=== PATIENT | female | born 1940 | race Caucasian/White ===

== ENCOUNTER → 2016-06-17 | Outpatient (REF) | payer MEDICARE, BC ==
[~2016-06-17] MED LIST: *CXR; /GLIM2TA; /GLIM4TA; ALLO100T PO; AMARYL4 PO; ASPI325T PO; ASPI81TA45 OR; ATENOLOL50 PO; AVAP150T; AVAP150T PO; AVAPRO150 PO; BISA10SU2 RE; BISA5TA OR; CALC1CAP31 PO; CARAFATE1 PO; CIPR500T19; COLA100C2 OR; COLC0.6T; COLC0.6T OR; COLC1CAP PO; CORD200T PO; COUM1TAB17 PO; CRAN400C PO; ELIQ2.5T PO; ENOX40SY SC; EX-L5TAB OR; FISH120012 PO; FISHCAP PO; FLAG500T; GLIM1TAB PO; GLIM2TA PO; GLIM4TAB PO; GLUCOPH500 PO; GLUCULTRA TOPICAL; HCTZ25 PO; HYDR12.55 PO; HYDR200T3 PO; HYDR25TA6; HYDR25TA6 PO; HYDROXYCHLOROQUINE; IMITREX50 PO; IRBE150T12 PO; JANU100T PO; JANUVIA; JANUVIA PO; JANUVIA100 PO; KEFLEX500 PO; LASIX20 PO; LEVAQUI500 PO; LEVO175T3; LEVO200T4 PO; LEVOTH PO; LOPR50TA OR; MAGN250T11 PO; MILK200C PO; MILKPOW; MILKPOW PO; MILKSUS OR; MULTCAP PO; MULTIVIT OR; MULTIVIT PO; OMEGA 3; OXYC10TA12 OR; OXYC5CAP4 OR; PENNSAID; POTASSIU10 PO; PRAV20TA2 OR; PROT1TAB2 PO; SENN8.6T14 OR; SEREVENTIN PO; SINGULAI10 PO; SOY LECITHIN PO; SOYA LECITHIN; SOYA LECITHIN PO; SPIR1CAP INH; SYNT175T PO; SYNTHRO PO; SYNTHRO175 PO; SYNTHROI15 PO; TOPR100T PO; TORS100T PO; TORS20TA2 PO; TRAM50TA2 PO; ULTRAM50 PO; VITA100T5; VITA400C PO; VITA500C; VITA500T OR; VITAMIN D PO; VITMTA PO; VOLT1GEL; XENICAL120 PO; ZANA4CAP PO; ZANT150T; ZANTAC150 PO; [UNRECOGNIZED DRUG - CODE] PO; [UNRECOGNIZED DRUG - OTHER]; [UNRECOGNIZED DRUG - OTHER] -; [UNRECOGNIZED DRUG - OTHER] PO; [UNRECOGNIZED DRUG - OTHER] TOPICALLY; mag ox PO; metamucil PO
== END ==
LOC: M SFHCCLAY 14:08
PROVIDERS: ATTEND Family Medicine
DX: N18.4 Chronic kidney disease, stage 4 (severe) (principal); E11.21 Type 2 diabetes mellitus with diabetic nephropathy

== ENCOUNTER → 2016-06-23 | Outpatient (REF) | payer MEDICARE, BC ==
[2016-06-23 18:51] LABS: ALBUMIN 3.9 GM/DL (3.2-5.2); ALBUMIN/GLOBULIN RATIO 1.3 (1.00-1.93); BILIRUBIN,TOTAL 0.5 MG/DL (0.2-1.0); CALCIUM LEVEL 9.4 MG/DL (8.8-10.2); CREATININE FOR GFR 1.86 MG/DL (0.55-1.02); POTASSIUM SERUM 4.4 MEQ/L (3.5-5.1); TOTAL PROTEIN 6.9 GM/DL (6.4-8.2)
[2016-06-23 19:00] LABS: FREE T4 1.66 NG/DL (0.76-1.46)
== END ==
LOC: M SFHCCLAY 13:06
PROVIDERS: ATTEND Family Medicine
DX: E03.9 Hypothyroidism, unspecified (principal); E11.9 Type 2 diabetes mellitus without complications

== ENCOUNTER → 2016-07-05 | Outpatient (CLI) | payer MEDICARE, BC ==
--- NOTE | 2016-07-06 07:29 | REP ---
MRI study of the brain and pituitary without IV contrast: History: Pituitary cyst. Comparison MRI studies are reviewed, the most recent of which is from June 06, 2015. Technique: Sagittal axial and coronal imaging planes are utilized. T1 and T2-weighted sequences include spin-echo, fast spin echo, FLAIR, diffusion weighted scans. Thin-section coronals through the pituitary are obtained. IV contrast was withheld due to the patient's low EGFR. MRI findings: The pituitary gland measures 8 mm in height and shows no evidence of mass or other abnormality. There is a cyst in the inferior sella turcica again noted measuring 9 mm in anteroposterior dimension. This is unchanged as well. There is remodeling of the floor of the sella turcica as before. The previously noted small meningioma at the anterior clinoid on the right is barely visible without contrast abutting the right side of the optic chiasm as before. It is best appreciated on coronal T1-weighted thin sections. The pituitary stalk remains in the midline. No change in any of these findings when compared with the June 06, 2015 prior study. There is some mild diffuse cerebral atrophy. Multiple T2 hyperintensities are seen in the subcortical and periventricular white matter of the supratentorial brain as before consistent with small vessel changes. Diffusion weighted images show no evidence of restricted diffusion to suggest acute ischemia. There is no evidence of hemorrhage, mass or midline shift. Exam is otherwise unremarkable. 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 Signed by Lucien Lema MD 07/06/2016 08:25 A
== END ==
LOC: M RAD 16:18
PROVIDERS: ATTEND Family Medicine
DX: E23.6 Other disorders of pituitary gland (principal); D32.0 Benign neoplasm of cerebral meninges

== ENCOUNTER → 2016-09-10 | Outpatient (REF) | payer MEDICARE, BC ==
[~2016-09-10] MED LIST changes: +ADV250INH INH; +CYCL10TA PO; +GLIM2TAB PO; +NAPR500T PO; +NEUR300C PO
[2016-09-10 11:02] LABS: MEAN CORPUSCULAR HEMOGLOBIN 30.9 pg (27.0-33.0); MEAN CORPUSCULAR HGB CONC 33.5 g/dl (32.0-36.5); MEAN CORPUSCULAR VOLUME 92.4 fl (80.0-96.0); RED CELL DISTRIBUTION WIDTH 13.9 % (11.5-14.5); WHITE BLOOD COUNT 6.9 K/mm3 (4.0-10.0)
[2016-09-10 11:25] LABS: ALBUMIN 3.8 GM/DL (3.2-5.2); ALBUMIN/GLOBULIN RATIO 1.36 (1.00-1.93); BILIRUBIN,TOTAL 0.5 MG/DL (0.2-1.0); CALCIUM LEVEL 9.3 MG/DL (8.8-10.2); CREATININE FOR GFR 1.46 MG/DL (0.55-1.02); GLOMERULAR FILTRATION RATE 37.1 (>39); POTASSIUM SERUM 3.6 MEQ/L (3.5-5.1); TOTAL PROTEIN 6.6 GM/DL (6.4-8.2)
[2016-09-10 11:34] LABS: FREE T4 1.67 NG/DL (0.76-1.46)
== END ==
LOC: M SFHCCLAY 07:41
PROVIDERS: ATTEND Family Medicine
DX: K21.9 Gastro-esophageal reflux disease without esophagitis (principal); K62.5 Hemorrhage of anus and rectum; E03.9 Hypothyroidism, unspecified; E11.21 Type 2 diabetes mellitus with diabetic nephropathy; N18.4 Chronic kidney disease, stage 4 (severe)
CPT/HCPCS: 80053; 80061; 82043; 83036; 83970; 84439; 84443; 85027; G0463

== ENCOUNTER 2016-10-22 11:00 | Emergency (ER) | payer MEDICARE, BC ==
[~2016-10-22] VITALS: Ht 167.6 cm; Wt 95.2 kg
[~2016-10-22 11:00] MED LIST changes: -ADV250INH INH; -CYCL10TA PO; -GLIM2TAB PO; -NAPR500T PO; -NEUR300C PO
[2016-10-22] MEDS ORDERED: GLIM2TAB PO (11:14)
[2016-10-22] MEDS ORDERED: ADV250INH INH (11:14)
[2016-10-22] MEDS ORDERED: NAPR500T PO (12:22)
[2016-10-22] MEDS ORDERED: NEUR300C PO (12:22)
[2016-10-22] MEDS ORDERED: CYCL10TA PO (12:22)
[2016-10-22 12:27] VITALS: BP 140/63
== END 2016-10-22 12:34 | disposition home or self-care (01) ==
LOC: M ED 11:00
DX: M54.12 Radiculopathy, cervical region (principal); G62.9 Polyneuropathy, unspecified; Z79.899 Other long term (current) drug therapy; Z88.5 Allergy status to narcotic agent; Z88.0 Allergy status to penicillin; Z88.1 Allergy status to other antibiotic agents; Z88.8 Allergy status to other drugs, medicaments and biological substances

== ENCOUNTER 2016-10-24 13:04 | Emergency (ER) | payer MEDICARE, BC ==
[~2016-10-24 13:04] MED LIST changes: +ADV250INH INH; +CYCL10TA PO; +GLIM2TAB PO; +NAPR500T PO; +NEUR300C PO
--- NOTE | 2016-10-24 15:32 | REP ---
CT Head without contrast HISTORY: Syncope COMPARISON: 12/04/2005 Areas of decreased attenuation are present in the periventricular white matter. This represents small-vessel ischemic disease. There is no intraparenchymal hemorrhage, acute infarct, mass or midline shift. The ventricular system and cortical sulci are dilated consistent with minimal volume loss. There is no extra cerebral collection. There is no fracture. The visualized sinuses are clear. IMPRESSION: 1. Small vessel ischemic disease. 2. Minimal volume loss. Signed by Dave Patino MD 10/24/2016 03:24 P
[2016-10-24 15:34] LABS: BASO % 0.4 % (0.0-1.0); EOS # 0.6 K/mm3 (0.0-0.50); EOS % 7.2 % (0.0-3.0); LARGE UNSTAINED CELL # 0.1 K/mm3 (0.0-0.4); LARGE UNSTAINED CELL % 0.9 % (0.0-4.0); LYMPH # 1.6 K/mm3 (1.5-4.5); MEAN CORPUSCULAR HEMOGLOBIN 29.9 pg (27.0-33.0); MEAN CORPUSCULAR HGB CONC 32.7 g/dl (32.0-36.5); MEAN CORPUSCULAR VOLUME 91.3 fl (80.0-96.0); MONO # 0.3 K/mm3 (0.0-0.8); MONO % 3.7 % (0.0-5.0); NEUTROPHILS # 5.5 K/mm3 (1.8-7.7); NEUTROPHILS % 68.7 % (36.0-66.0); PLATELET COUNT, AUTOMATED 188 k/mm3 (150-450); RED CELL DISTRIBUTION WIDTH 13.8 % (11.5-14.5); WHITE BLOOD COUNT 8.1 K/mm3 (4.0-10.0)
[2016-10-24 15:40] LABS: INR 1.01
[2016-10-24 15:58] LABS: ALBUMIN 3.7 GM/DL (3.2-5.2); ALBUMIN/GLOBULIN RATIO 1.42 (1.00-1.93); ALKALINE PHOSPHATASE 81 U/L (45-117); ALT/SGPT 20 U/L (12-78); ANION GAP 9 MEQ/L (8-16); AST/SGOT 15 U/L (15-37); BILIRUBIN,DIRECT 0.1 MG/DL (0.0-0.2); BILIRUBIN,TOTAL 0.5 MG/DL (0.2-1.0); BLOOD UREA NITROGEN 28 MG/DL (7-18); CALCIUM LEVEL 8.9 MG/DL (8.8-10.2); CARBON DIOXIDE LEVEL 29 MEQ/L (21-32); CHLORIDE LEVEL 110 MEQ/L (98-107); CREATININE FOR GFR 1.42 MG/DL (0.55-1.02); GLOMERULAR FILTRATION RATE 38.3 (>39); GLUCOSE, FASTING 65 MG/DL (83-110); MAGNESIUM LEVEL 2.2 MG/DL (1.8-2.4); POTASSIUM SERUM 4.3 MEQ/L (3.5-5.1); SODIUM LEVEL 148 MEQ/L (136-145); TOTAL PROTEIN 6.3 GM/DL (6.4-8.2)
[2016-10-24 16:03] LABS: FREE T4 1.29 NG/DL (0.76-1.46)
[2016-10-24] MEDS ORDERED: GLIM1TAB PO (17:35)
[2016-10-24 17:36] VITALS: BP 185/74
--- NOTE | 2016-10-24 19:16 | ECGEPIP ---
Stationary ECG Study 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
--- NOTE | 2016-10-25 08:06 | REP ---
RIGHT KNEE, FIVE VIEWS: HISTORY: Fall COMPARISON: 05/21/2009 There is no acute fracture or dislocation. There is narrowing of the joint spaces with associated osteophyte formation. An ossified density is present adjacent to the patella. This represents ligamentous or tendon calcification. IMPRESSION: Degenerative change as described above. Signed by Dave Patino MD 10/25/2016 08:19 A
--- NOTE | 2016-10-25 08:09 | REP ---
RIGHT HIP, TWO VIEWS: HISTORY: Fall. The patient is status post right hip arthroplasty. There is no acute fracture or dislocation. Dystrophic calcification is present lateral to the acetabulum. Osteophytes are present on the femur. IMPRESSION: The patient is status post right hip arthroplasty. There is no acute fracture or dislocation. Signed by Dave Patino MD 10/25/2016 08:19 A
--- NOTE | 2016-10-25 09:18 | REP ---
RIGHT SHOULDER, THREE VIEWS: HISTORY: Fall. There is no acute fracture or dislocation. There is narrowing of the glenohumeral joint. Osteophytes are present on the humerus and inferior acromion. IMPRESSION: There is no acute fracture or dislocation. Signed by Dave Patino MD 10/25/2016 09:28 A
== END 2016-10-24 18:36 | disposition home or self-care (01) ==
LOC: EDBD 13:04 → M ED 13:20
DX: E11.649 Type 2 diabetes mellitus with hypoglycemia without coma (principal); Z96.641 Presence of right artificial hip joint; M25.761 Osteophyte, right knee; I25.10 Atherosclerotic heart disease of native coronary artery without angina pectoris; M10.9 Gout, unspecified; E03.9 Hypothyroidism, unspecified; G47.30 Sleep apnea, unspecified; J45.909 Unspecified asthma, uncomplicated; I10 Essential (primary) hypertension; Z87.891 Personal history of nicotine dependence; Z79.84 Long term (current) use of oral hypoglycemic drugs; Z79.899 Other long term (current) drug therapy; Z88.5 Allergy status to narcotic agent; Z88.0 Allergy status to penicillin; Z88.1 Allergy status to other antibiotic agents; Z88.8 Allergy status to other drugs, medicaments and biological substances

== ENCOUNTER 2016-11-17 09:46 | Emergency (ER) | payer MEDICARE, BC ==
[~2016-11-17] VITALS: Ht 170.2 cm; Wt 95.4 kg
[2016-11-17 09:47] VITALS: BP 154/66
--- NOTE | 2016-11-18 08:18 | ECGEPIP ---
Stationary ECG Study [facility] - ED Test Date: 2016-11-17 Pat Name: CINDI LYLES Department: Room: - Gender: F Dope Pourer: lorna : 1940 Requested By: KORINA Farias Order Number: [id number] Reading MD: Vikki Barrow Measurements Intervals [place] Rate: 70 P: 73 CO: 176 QRS: -11 QRSD: 94 T: 29 QT: 373 QTc: 403 Interpretive Statements SINUS RHYTHM DELAYED R PROGRESSION SIMILAR 10/24/16 Electronically Signed On 11-18-2016 8:18:13 EDT by Vikki Barrow
== END 2016-11-17 10:59 | disposition home or self-care (01) ==
LOC: M ED 09:46
DX: R94.31 Abnormal electrocardiogram [ECG] [EKG] (principal); H25.12 Age-related nuclear cataract, left eye; E11.9 Type 2 diabetes mellitus without complications; E78.5 Hyperlipidemia, unspecified; I25.10 Atherosclerotic heart disease of native coronary artery without angina pectoris; I10 Essential (primary) hypertension; M10.9 Gout, unspecified; M19.90 Unspecified osteoarthritis, unspecified site; E03.9 Hypothyroidism, unspecified; K75.81 Nonalcoholic steatohepatitis (NASH); Z87.891 Personal history of nicotine dependence; Z79.84 Long term (current) use of oral hypoglycemic drugs; Z79.899 Other long term (current) drug therapy; Z88.5 Allergy status to narcotic agent; Z88.0 Allergy status to penicillin; Z88.1 Allergy status to other antibiotic agents; Z88.8 Allergy status to other drugs, medicaments and biological substances

== ENCOUNTER → 2016-11-17 | Outpatient (CLI) | payer MEDICARE, BC ==
--- NOTE | 2016-11-17 09:53 | REP ---
PA and lateral chest: Comparison is a 2015. The lung guerrero are clear. The cardiac size is upper normal. The karen, mediastinum, and bony thorax are unchanged. There is surgical fusion of the thoracolumbar spine, unchanged. Impression: Essentially negative chest. No interval change. Surgical fusion of the thoracolumbar spine is again identified. Signed by Jose Aguilar MD 11/17/2016 09:45 A
[2016-11-17 10:18] LABS: CALCIUM LEVEL 9.3 MG/DL (8.8-10.2); CREATININE FOR GFR 1.45 MG/DL (0.55-1.02); GLOMERULAR FILTRATION RATE 37.4 (>39); POTASSIUM SERUM 4.3 MEQ/L (3.5-5.1)
--- NOTE | 2016-11-17 18:58 | ECGEPIP ---
Stationary ECG Study [facility] Test Date: 2016-11-17 Pat Name: CINDI LYLES Department: Room: - Gender: F Viscosity Tester: [facility] : 1940 Requested By: FRANCK Mccullough Order Number: [id number] Reading MD: Mark Lugo Measurements Intervals [place] Rate: 71 P: 74 NV: 173 QRS: -21 QRSD: 90 T: 46 QT: 389 QTc: 423 Interpretive Statements Normal sinus rhythm Prior atrial wall myocardial infarction No significant change from 10/24/2016 Electronically Signed On 11-17-2016 18:58:11 EDT by Mark Lugo
== END ==
LOC: M LAB 09:13
PROVIDERS: ATTEND Ophthalmology
DX: H25.12 Age-related nuclear cataract, left eye (principal); E11.9 Type 2 diabetes mellitus without complications; E78.5 Hyperlipidemia, unspecified

== ENCOUNTER → 2016-11-19 | Outpatient (REF) | payer MEDICARE, BC ==
[2016-11-19 12:17] LABS: FREE T4 1.33 NG/DL (0.76-1.46)
== END ==
LOC: M SFHCCLAY 08:55
PROVIDERS: ATTEND Family Medicine
DX: E03.9 Hypothyroidism, unspecified (principal)

== ENCOUNTER → 2017-01-13 | Outpatient (REF) | payer MEDICARE, BC ==
[2017-01-13 19:41] LABS: PERCENT SATURATION 24.8 % (13.2-45.0)
== END ==
LOC: M LAB REF 17:37
PROVIDERS: ATTEND Internal Medicine Nephrology
DX: D50.9 Iron deficiency anemia, unspecified (principal)

== ENCOUNTER 2017-02-01 06:43 | Day surgery (SDC) | payer MEDICARE, BC ==
[~2017-02-01] VITALS: Ht 167.6 cm; Wt 99.3 kg
[~2017-02-01 06:43] MED LIST changes: +LEVO150T7 PO; +VITA500T PO
[2017-02-01] MEDS ORDERED: LR 500 ML IV SCH (07:00)
[2017-02-01] MEDS ORDERED: fentaNYL 100 MCG/2 ML INJECTION (J3010) As Ordered ONE (07:35)
[2017-02-01] MEDS ORDERED: LIDOCAINE 2% INJ 100 MG/5 ML SDV (FOR ANES.) As Ordered ONE (07:54)
[2017-02-01] MEDS ORDERED: PROPOFOL 200 MG/20 ML VIAL As Ordered ONE (07:54)
--- NOTE | 2017-02-01 08:32 | ROOR ---
Patient Name: Kendra Lamar Procedure Date: 02/01/2017 7:36 AM Date of : 1940 Age: 77 Room: [facility] Gender: Female Note Status: Finalized Procedure: Upper GI endoscopy Indications: Epigastric abdominal pain, Personal history of peptic ulcer disease Providers: Fawad Gale MD Referring MD: Cali New MD Requesting Provider: Medicines: Monitored Anesthesia Care Complications: No immediate complications. Procedure: Pre-Anesthesia Assessment: - Prior to the procedure, a History and Physical was performed, and patient medications and allergies were reviewed. The patient is competent. The risks and benefits of the procedure and the sedation options and risks were discussed with the patient. All questions were answered and informed consent was obtained. Patient identification and proposed procedure were verified by the physician, the nurse and the anesthesiologist in the procedure room. Mental Status Examination: alert and oriented. Airway Examination: normal oropharyngeal airway and neck mobility. CV Examination: irregularly irregular rate and rhythm. Prophylactic Antibiotics: The patient does not require prophylactic antibiotics. Prior Anticoagulants: The patient has taken no previous anticoagulant or antiplatelet agents. ASA Grade Assessment: III - A patient with severe systemic disease. After reviewing the risks and benefits, the patient was deemed in satisfactory condition to undergo the procedure. The anesthesia plan was to use monitored anesthesia care (MAC). Immediately prior to administration of medications, the patient was re-assessed for adequacy to receive sedatives. The heart rate, respiratory rate, oxygen saturations, blood pressure, adequacy of pulmonary ventilation, and response to care were monitored throughout the procedure. The physical status of the patient was re-assessed after the procedure. The Endoscope was introduced through the mouth, and advanced to the second part of duodenum. The upper GI endoscopy was accomplished without difficulty. The patient tolerated the procedure well. Findings: The examined esophagus was normal. The Z-line was irregular. The entire examined stomach was normal. The examined duodenum was normal. Impression: - Normal esophagus. - Z-line irregular. - Normal stomach. - Normal examined duodenum. - No specimens collected. Recommendation: - Discharge patient to home. - Resume previous diet. - Continue present medications. Fawad Gale MD 02/01/2017 8:31:52 AM Number of Addenda: 0 Note Initiated On: 02/01/2017 7:36 AM Estimated Blood Loss: Estimated blood loss: none.
--- NOTE | 2017-02-01 08:40 | ROOR ---
Patient Name: Kendra Lamar Procedure Date: 02/01/2017 7:37 AM Date of : 1940 Age: 77 Room: [facility] Gender: Female Note Status: Finalized Procedure: Colonoscopy Indications: Rectal bleeding Providers: Fawad Gale MD Referring MD: Cali New MD Requesting Provider: Medicines: Monitored Anesthesia Care Complications: No immediate complications. Procedure: Pre-Anesthesia Assessment: - Prior to the procedure, a History and Physical was performed, and patient medications and allergies were reviewed. The patient is competent. The risks and benefits of the procedure and the sedation options and risks were discussed with the patient. All questions were answered and informed consent was obtained. Patient identification and proposed procedure were verified by the physician, the nurse and the anesthesiologist in the procedure room. Mental Status Examination: alert and oriented. Airway Examination: normal oropharyngeal airway and neck mobility. CV Examination: irregularly irregular rate and rhythm. Prophylactic Antibiotics: The patient does not require prophylactic antibiotics. Prior Anticoagulants: The patient has taken no previous anticoagulant or antiplatelet agents. ASA Grade Assessment: III - A patient with severe systemic disease. After reviewing the risks and benefits, the patient was deemed in satisfactory condition to undergo the procedure. The anesthesia plan was to use monitored anesthesia care (MAC). Immediately prior to administration of medications, the patient was re-assessed for adequacy to receive sedatives. The heart rate, respiratory rate, oxygen saturations, blood pressure, adequacy of pulmonary ventilation, and response to care were monitored throughout the procedure. The physical status of the patient was re-assessed after the procedure. The Colonoscope [id number] #[id number] was introduced through the anus and advanced to the cecum, identified by appendiceal orifice and ileocecal valve. The colonoscopy was performed without difficulty. The patient tolerated the procedure well. The quality of the bowel preparation was excellent. Findings: The perianal and digital rectal examinations were normal. A 10 mm polyp was found in the proximal ascending colon. The polyp was sessile. The polyp was removed with a hot snare. Resection and retrieval were complete. A 4 mm polyp was found at 70 cm proximal to the anus. The polyp was sessile. The polyp was removed with a hot snare. Resection and retrieval were complete. A 15 mm polyp was found at 30 cm proximal to the anus. The polyp was pedunculated. The polyp was removed with a hot snare. Resection and retrieval were complete. Red blood was found in the sigmoid colon. This seemed to be associated with the pedunculated polyp at 30 cm. Impression: - One 10 mm polyp in the proximal ascending colon, removed with a hot snare. Resected and retrieved. - One 4 mm polyp at 70 cm proximal to the anus, removed with a hot snare. Resected and retrieved. - One 15 mm polyp at 30 cm proximal to the anus, removed with a hot snare. Resected and retrieved. - Blood in the sigmoid colon. Recommendation: - Discharge patient to home. - Resume previous diet. - Continue present medications. - Await pathology results. - Telephone endoscopist for pathology results in 1 week. Fawad Gale MD 02/01/2017 8:40:27 AM Number of Addenda: 0 Note Initiated On: 02/01/2017 7:37 AM Estimated Blood Loss: Estimated blood loss: none.
[2017-02-01 09:08] VITALS: BP 145/67
== END 2017-02-01 09:10 | disposition home or self-care (01) ==
LOC: M OPP 06:43
PROVIDERS: ATTEND Surgery
DX: K62.5 Hemorrhage of anus and rectum (principal); D12.2 Benign neoplasm of ascending colon; R10.13 Epigastric pain; Z87.11 Personal history of peptic ulcer disease; K22.8 Other specified diseases of esophagus; E03.9 Hypothyroidism, unspecified; I10 Essential (primary) hypertension; E11.9 Type 2 diabetes mellitus without complications; K74.69 Other cirrhosis of liver; G47.30 Sleep apnea, unspecified; I48.91 Unspecified atrial fibrillation; M10.9 Gout, unspecified; I25.10 Atherosclerotic heart disease of native coronary artery without angina pectoris; Z87.891 Personal history of nicotine dependence; Z79.84 Long term (current) use of oral hypoglycemic drugs; Z79.899 Other long term (current) drug therapy; Z88.0 Allergy status to penicillin; Z88.1 Allergy status to other antibiotic agents; Z88.5 Allergy status to narcotic agent; Z88.8 Allergy status to other drugs, medicaments and biological substances
CPT/HCPCS: 43235; 45385; 88305; J3010

== ENCOUNTER → 2017-06-02 | Outpatient (REF) | payer MEDICARE, BC ==
[2017-06-02 15:53] LABS: CREATININE FOR GFR 1.79 MG/DL (0.55-1.30); GLOMERULAR FILTRATION RATE 29.2 (>39)
[2017-06-02 15:53] LABS: BLOOD UREA NITROGEN 38 MG/DL (7-18)
== END ==
LOC: M LABDRAW1 14:20
DX: M79.602 Pain in left arm (principal)
CPT/HCPCS: 82565

== ENCOUNTER → 2017-06-15 | Outpatient (CLI) | payer MEDICARE, BC | LOC: M RAD 16:03 | DX: M79.622 Pain in left upper arm (principal) | CPT/HCPCS: 73218 ==

== ENCOUNTER → 2017-07-01 | Outpatient (CLI) | payer MEDICARE, BC | LOC: M PLARAD 08:55 | DX: M79.622 Pain in left upper arm (principal) | CPT/HCPCS: 73218 ==

== ENCOUNTER → 2017-07-11 | Outpatient (REF) | payer MEDICARE, BC ==
[2017-07-11 11:54] LABS: HEMOGLOBIN 11.1 g/dl (12.0-15.5); MEAN CORPUSCULAR HEMOGLOBIN 30.2 pg (27.0-33.0); MEAN CORPUSCULAR HGB CONC 32.6 g/dl (32.0-36.5); MEAN CORPUSCULAR VOLUME 92.4 fl (80.0-96.0); PLATELET COUNT, AUTOMATED 161 10^3/uL (150-450); RED BLOOD COUNT 3.68 10^6/uL (4.00-5.40); RED CELL DISTRIBUTION WIDTH 13.8 % (11.5-14.5); WHITE BLOOD COUNT 8.9 10^3/uL (4.0-10.0)
[2017-07-11 12:22] LABS: ESTIMATED AVERAGE GLUCOSE 163 MG/DL (60-110); HEMOGLOBIN A1c 7.3 %
[2017-07-11 12:43] LABS: CHOLESTEROL LEVEL 181 MG/DL (<200); CHOLESTEROL RISK RATIO 3.351 (<5); FREE T4 1.29 NG/DL (0.76-1.46); HDL CHOLESTEROL 54 MG/DL (>40); NON-HDL-C 127 MG/DL; TRIGLYCERIDES LEVEL 110 MG/DL (<150)
[2017-07-13 00:08] LABS: ANA (HEP2) Positive (.); ANTI SCLERODERMA ANTIBODIES <0.2 AI (0.0-0.9)
== END ==
LOC: M SFHCCLAY 09:03
DX: E03.9 Hypothyroidism, unspecified (principal); Z87.39 Personal history of other diseases of the musculoskeletal system and connective tissue; I10 Essential (primary) hypertension; E11.21 Type 2 diabetes mellitus with diabetic nephropathy
CPT/HCPCS: 84443

== ENCOUNTER → 2017-12-05 | Outpatient (REF) | payer MEDICARE, BC ==
[2017-12-05 12:54] LABS: ANION GAP 7 MEQ/L (8-16); BLOOD UREA NITROGEN 28 MG/DL (7-18); CALCIUM LEVEL 8.8 MG/DL (8.8-10.2); CARBON DIOXIDE LEVEL 31 MEQ/L (21-32); CHLORIDE LEVEL 104 MEQ/L (98-107); CREATININE FOR GFR 1.87 MG/DL (0.55-1.30); GLOMERULAR FILTRATION RATE 27.8 (>39); GLUCOSE, FASTING 145 MG/DL (70-100); POTASSIUM SERUM 4.2 MEQ/L (3.5-5.1); SODIUM LEVEL 142 MEQ/L (136-145)
== END ==
LOC: M LABDRAWC 11:48
DX: D21.12 Benign neoplasm of connective and other soft tissue of left upper limb, including shoulder (principal)
CPT/HCPCS: 80048

== ENCOUNTER → 2017-12-08 | Outpatient (CLI) | payer MEDICARE, BC | LOC: M RAD 10:18 | DX: D21.12 Benign neoplasm of connective and other soft tissue of left upper limb, including shoulder (principal) ==

== ENCOUNTER → 2017-12-27 | Outpatient (REF) | payer MEDICARE, BC ==
[2017-12-27 18:07] LABS: FERRITIN 107 NG/ML (8-252); IRON (FE) 49 UG/DL (50-170); PERCENT SATURATION 16.5 % (13.2-45.0); TOTAL IRON BINDING CAPACITY 297 UG/DL (250-450)
== END ==
LOC: M LAB REF 17:26
DX: D50.9 Iron deficiency anemia, unspecified (principal)
CPT/HCPCS: 83550

== ENCOUNTER → 2018-01-25 | Outpatient (CLI) | payer MEDICARE, BC | LOC: M CLY 11:30 | DX: M25.712 Osteophyte, left shoulder (principal); M19.012 Primary osteoarthritis, left shoulder | CPT/HCPCS: 73030 ==

== ENCOUNTER 2018-05-31 12:52 | Inpatient (IN) | payer MEDICARE, BC ==
[~2018-05-31] VITALS: Ht 170.2 cm; Wt 107.3 kg
[2018-05-31] MEDS: ENOXAPARIN 30 MG/0.3 ML SYR (J1650) SC SCH (09:00)
[~2018-05-31 12:52] MED LIST changes: -/GLIM2TA; -/GLIM4TA; +AMAR1TAB5; +AMAR1TAB6; -ENOX40SY SC; -GLIM2TA PO; +GLIM2TAB29 PO; +LOVE1INJ SC; +NAPR-50 PO; -NAPR500T PO; -TOPR100T PO; +TOPR100T13 PO
[2018-05-31] MEDS ORDERED: methylPREDNISolone INJ 125 MG/2 ML VIAL (J2930) IV ONE (13:30)
[2018-05-31] MEDS ORDERED: ASPIRIN 81 MG CHEW TABLET PO ONE (13:30)
[2018-05-31] MEDS ORDERED: IPRATROPIUM 0.5MG/ALBUTEROL 2.5MG INH SOL UD 3ML (DUONEB)(J7620) NEB PRN (13:30)
[2018-05-31] MEDS ORDERED: NITROGLYCERIN 0.4 MG SUBL TABLET SL PRN (13:30)
[2018-05-31 13:48] LABS: BASO % 0.5 % (0.0-1.0); EOS # 0.3 10^3/uL (0.0-0.50); EOS % 7.3 % (0.0-3.0); HEMATOCRIT 56.9 % (36.0-47.0); HEMOGLOBIN 18.1 g/dl (12.0-15.5); LYMPH # 0.7 10^3/uL (1.5-4.5); LYMPH % 18.7 % (24.0-44.0); MEAN CORPUSCULAR HEMOGLOBIN 29.5 pg (27.0-33.0); MEAN CORPUSCULAR HGB CONC 31.8 g/dl (32.0-36.5); MEAN CORPUSCULAR VOLUME 92.7 fl (80.0-96.0); MONO # 0.1 10^3/uL (0.0-0.8); MONO % 3.5 % (0.0-5.0); NEUTROPHILS # 2.6 10^3/uL (1.8-7.7); NEUTROPHILS % 69.7 % (36.0-66.0); RED BLOOD COUNT 6.14 10^6/uL (4.00-5.40); WHITE BLOOD COUNT 3.7 10^3/uL (4.0-10.0)
[2018-05-31 14:03] LABS: ALBUMIN 3.9 GM/DL (3.2-5.2); ALT/SGPT 25 U/L (12-78); BILIRUBIN,DIRECT 0.2 MG/DL (0.0-0.2); BILIRUBIN,TOTAL 0.6 MG/DL (0.2-1.0); BLOOD UREA NITROGEN 20 MG/DL (7-18); CALCIUM LEVEL 9.6 MG/DL (8.8-10.2); CARBON DIOXIDE LEVEL 28 MEQ/L (21-32); CHLORIDE LEVEL 109 MEQ/L (98-107); CK-MB VALUE MASS < 1.0 NG/ML (<3.6); CPK CREATINE PHOSPHOKINASE 54 U/L (26-192); CREATININE FOR GFR 1.39 MG/DL (0.55-1.30); GLUCOSE, FASTING 168 MG/DL (70-100); LIPASE 146 U/L (73-393); MB/CK RELATIVE INDEX 1.85 (< OR =4); NT-PRO BNP 2931 PG/ML (<450); POTASSIUM SERUM 4.2 MEQ/L (3.5-5.1); SODIUM LEVEL 142 MEQ/L (136-145); TOTAL PROTEIN 6.8 GM/DL (6.4-8.2); TROPONIN I < 0.02 NG/ML (< 0.10)
[2018-05-31 14:05] LABS: PLATELET COUNT, AUTOMATED 83 10^3/uL (150-450)
[2018-05-31 14:10] LABS: INR 1.07
[2018-05-31 14:11] LABS: PARTIAL THROMBOPLASTIN TIME 25.4 SECONDS (25.4-37.6)
[2018-05-31 14:27] LABS: INFLUENZA A AMPLIFICATION NEGATIVE (NEGATIVE); INFLUENZA B AMPLIFICATION NEGATIVE (NEGATIVE)
[2018-05-31] MEDS ORDERED: JANU25TA PO (14:29)
[2018-05-31] MEDS ORDERED: GLIM4TAB PO (14:29)
[2018-05-31] MEDS ORDERED: BISO10TA13 PO (14:29)
[2018-05-31] MEDS ORDERED: MULT1TAB8 PO (14:29)
[2018-05-31] MEDS ORDERED: VITA125C2 PO (14:29)
[2018-05-31] MEDS ORDERED: CALC1CAP31 PO (14:29)
[2018-05-31] MEDS ORDERED: FUROSEMIDE 40 MG/4 ML VIAL (J1940) IV ONE (14:30)
--- NOTE | 2018-05-31 14:46 | REP ---
CHEST, TWO VIEWS: Two views of the chest are performed and compared to a prior study of 11/17/2016. There is cardiomegaly. There are chronic interstitial changes in the lung bases. I cannot exclude mild superimposed basilar interstitial edema. Mediastinal silhouette is unchanged. There are degenerative changes of the spine. There are metallic rods and screws in the lower thoracic spine. IMPRESSION: Cardiomegaly and chronic interstitial changes. I cannot exclude mild superimposed interstitial edema. Electronically Signed by Jose Pham MD 05/31/2018 04:38 P
[2018-05-31] MEDS ORDERED: IRBE75TA5 PO (14:57)
[2018-05-31] MEDS ORDERED: ROCA0.5C PO (14:57)
[2018-05-31] MEDS ORDERED: TORS20TA2 PO (14:57)
[2018-05-31] MEDS ORDERED: FAMO1TAB11 PO (14:57)
[2018-05-31] MEDS ORDERED: BISO5TAB5 PO (14:57)
[2018-05-31] MEDS ORDERED: MULTCHW14 PO (14:57)
[2018-05-31] MEDS ORDERED: LEVAINH INH (14:57)
[2018-05-31] MEDS ORDERED: DEXTROSE 50% 50 ML SYRINGE IV PRN (15:00)
[2018-05-31] MEDS ORDERED: GLUCAGON FOR INJ 1 MG VIAL (J1610) SC PRN (15:00)
[2018-05-31] MEDS ORDERED: GLUCOSE 4 GM CHEW TABLET PO PRN (15:00)
[2018-05-31] MEDS ORDERED: amLODIPine 5 MG TAB PO ONE (15:30)
--- NOTE | 2018-05-31 15:46 | HPE ---
DATE OF ADMISSION: 05/31/2018 PRIMARY CARE PHYSICIAN: Dr. Cali New - [facility] OFFICE AUTOMATION CLERK: Dr. Juan Jarrett - [facility] (last visit 11/28/2017) CHIEF COMPLAINT: Shortness of breath. HISTORY: Kendra Lamar is a 78-year-old admitted with shortness of breath. She presented with some bradycardia and dyspnea on exertion. She said she has had dyspnea on exertion, having to stop and rest with only a few steps of walking since over the last week. She has had problems with bradycardia in the past, said in [place] her heart rate was low and her bisoprolol was reduced from 5 mg twice a day to 5 mg daily. She does not have a past history of congestive heart failure though she does have a cardiac history that will be summarized at this time. She is followed by [facility], last 11/28/2017. She has paroxysmal atrial fibrillation/flutter, was on amiodarone at one time though not currently taking this. She has some mild coronary artery disease. She had a cardiac catheterization 03/1999 in [place], mild to moderate diffuse disease of an intermedius artery. Her most recent nuclear stress test was 09/2017. EKG portion was negative. SPECT images were unremarkable. Perfusion was unremarkable and unchanged from 07/2015 and showed normal wall motion abnormality. She had a Holter monitor 09/2014 that at that time just showed average heart rate of 68, some runs of atrial tachycardia, no atrial fibrillation. Most recent echocardiogram was 06/2014, mild left atrial enlargement, diastolic dysfunction noted, no significant valvular disease. She has chronic kidney disease stage III. She had a nuclear renal scan done 11/2014 that showed mildly diminished function of the left kidney without hydronephrosis, moderately severe diminished function of the right kidney with mild to moderate hydronephrosis. [facility] is followed [facility], most recently 11/2017. [facility] saw her 12/2017 for left arm pain. Nerve conduction studies showed chronic left C5-6 radiculopathy, mild to moderate left ulnar neuropathy. OTHER PAST HISTORY: Shows cirrhosis secondary to nonalcoholic steatohepatitis (ARANA). She has obstructive sleep apnea (MARY KATE) seen by [facility]/Dr. Fang. She has a history of gout, type 2 diabetes, hypothyroidism, asthma, hypertensive heart disease, sellar arachnoid cyst. The patient has a history of scleroderma, she has been followed by [facility], Dr. Astroga in [place], most recently 10/2017, and she is on Plaquenil for this. SURGICAL HISTORY: Appendectomy, tonsillectomy, hysterectomy, partial thyroidectomy, cholecystectomy, multilevel spinal fusion, total right hip replacement, right shoulder surgery, lipoma removed from the left arm as well as her neck, trigger finger right index finger, left total hip 09/2010, apparently had lumbar leakage after spinal fusion and underwent surgery for repair of that leak 02/2012, she had a left total knee 05/2014. FAMILY HISTORY: Father of unknown causes. Mother at 82 of a stroke. One sister had breast cancer, another had Alzheimer's and various psychiatric problems. Extensive diabetic history in grandparents. REVIEW OF SYSTEMS: No hemoptysis, chest pain, palpitations, orthopnea, polyuria or polydipsia, rectal bleeding, urinary bleeding. SOCIAL HISTORY: Nonsmoker, quit in 1971. No alcohol intake. . No regular exercise program. ALLERGIES: IMITREX caused elevated blood pressure. ERYTHROMYCIN gave her a headache. PENICILLIN caused anaphylaxis. CODEINE caused stomach upset. MORPHINE caused confusion. CIPRO caused myalgias. BACTRIM caused headaches and nausea. IBUPROFEN caused her to have edema. GABAPENTIN led to seizures and hypertension and BACLOFEN led to seizures and hypertension. MEDICATIONS: - allopurinol 100 mg daily - bisoprolol 5 mg daily - calcitriol 0.5 mcg daily - glimepiride 4 mg in the morning, 2 mg in the evening - Plaquenil 200 mg daily - Xopenex puffer four times a day as needed - levothyroxine 150 mcg daily - Advair 250/50 one inhalation twice a day - Januvia 25 mg daily - torsemide 20 mg daily PHYSICAL EXAMINATION: Vital signs per flow sheet. Her resting heart rate is around 60, blood pressure 160/90. General appearance: She is resting comfortably in no distress. Pupils equally round and react to light. Pharynx benign. Neck no masses. No jugular venous distention (JVD). Lungs have decreased breath sounds. Heart: Regular rate, rhythm slow, no murmur. Abdomen: Soft, nontender, no masses. Trace to 1+ peripheral edema. Neurologic exam: Shows she is alert, conversant, in no distress. Moves all extremities with equal movement. LABORATORY DATA: White count 3.7, hemoglobin 18.1, platelets 83 (last hemoglobin was 11.6), sodium 142, potassium 4.2, BUN 20, creatinine 1.4, GFR 39. BNP is 2931. TSH normal at 3.4, free T4 minimally elevated at 1.5. Chest x-ray shows increased interstitial markings. IMPRESSION: 1. Congestive heart failure, probably diastolic in nature. Will order an echocardiogram. She would like to see Dr. Jarrett, her forger helper, I will put a consultation in. I have ordered some Lasix on a net negative 1500 mL/day diuresis goal. 2. Hypertension. I am holding her beta sanjana in the face of the bradycardia. At some point she might warrant an angiotensin converting enzyme (JERRY) inhibitor but I am going to keep an eye on her renal function while she is being diuresed. Will start her on some amlodipine 5 mg daily for now. If her blood pressure stays up I will give her some topical nitrates. 3. Bradycardia. Will hold her bisoprolol for now. I am wondering how much this dyspnea on exertion is related to sinus node dysfunction. She has a history of atrial fibrillation/flutter. She might get in a tachy-sherman syndrome. Will see how things go off of the bisoprolol. Cardiology has been consulted. 4. Diabetes. Will hold her glimepiride for now. Continue her Januvia which is appropriately dosed for renal function. Sliding scale of insulin with coverage based on protocol. For unknown reasons she got 125 mg of methylprednisolone in the emergency room so that will probably raise her blood sugar for a while. 5. Scleroderma. Continue her Plaquenil 200 mg daily. 6. History of cirrhosis secondary to nonalcoholic steatohepatitis (ARANA). Dose medications appropriately. Check INR. 7. Hypothyroidism. Continue levothyroxine 150 mcg daily. 8. History of gout. Continue allopurinol 100 mg daily. 9. Chronic kidney disease stage III. Continue her calcitriol. Dose medications based on renal function. Avoid nonsteroidal anti-inflammatory drugs (NSAIDs). Use angiotensin-converting enzymes (JERRY) inhibitors and ARBs with caution. She is followed by Dr. Pascual/nephrology. 10. History of chronic obstructive pulmonary disease (COPD). Continue her Advair and Xopenex on an as needed basis. 11. Polycythemia. Baseline hemoglobin is significantly lower than she is currently exhibiting. I do not know why hemoglobin is so high if she has been using her continuous positive airway pressure (CPAP). Could be lab error. I am repeating this tomorrow.
[2018-05-31 17:20] VITALS: BP 180/80
[2018-05-31] MEDS: HumaLOG INSULIN (NovoLOG) PER UNIT SC SCH ×2 (17:30→21:16)
[2018-05-31] MEDS ORDERED: SLF 3 ML SYR IV PRN (18:00)
[2018-05-31] MEDS: FUROSEMIDE 100 MG/10 ML VIAL (J1940) IV SCH (18:00)
[2018-05-31 20:00] VITALS: BP 138/76
--- NOTE | 2018-05-31 20:29 | ECHO ---
DATE OF PROCEDURE: 05/31/2018 REFERRING PHYSICIAN: Dr. Wayne Guardado INDICATION: Dyspnea. HEIGHT: 170 cm WEIGHT: 105 kg 2D MEASUREMENTS: Ventricular septum: 0.83 cm Posterior wall: 1.07 cm Left ventricle diastole: 4.7 cm Aortic root: 3.0 cm LVOT: 1.9 cm Inferior vena cava: 2.7 cm with greater than 50% respiratory variation. Central venous pressure estimated to be 5-10 mmHg at the time of the study. DOPPLER MEASUREMENTS: Aortic valve velocity: 138 cm/s LVOT velocity: 100 cm/s LVOT VTI: 22.5 cm Trace mitral regurgitation. Mitral E velocity: 98.5 cm/s Mitral A velocity: 101 cm/s Mitral deceleration time: 169 ms Very mild tricuspid regurgitation. MITRAL ANNULAR TISSUE DOPPLER: E prime septal: 7.4 cm/s E prime lateral: 7.3 cm/s DESCRIPTION: Rhythm was sinus. This was a moderately technically difficult echocardiogram. This was a 2D, M-mode, color flow Doppler and pulse wave Doppler examination and included mitral annular tissue Doppler. CONCLUSIONS: 1. Normal left ventricle internal dimensions and wall thickness. Normal regional left ventricle (LV) wall motion and wall thickening. Normal LV systolic function. Left ventricular ejection fraction (LVEF) 65% by visual estimate. Grade 1 LV diastolic dysfunction (impaired relaxation filling pattern). 2. Normal left atrial size by visual assessment. 3. Unable to assess pulmonary artery systolic pressure or estimated right ventricle systolic pressure on this study. Dilated inferior vena cava with normal respiratory variation. Suggests a central venous pressure of 5-10 mmHg at the time of the study. 4. Very small pericardial effusion. No diastolic chamber collapse. 5. Right pleural effusion. 6. Mild aortic valve sclerosis of a three-cuspid aortic valve. No aortic regurgitation. 7. Mild mitral annular calcification. Trace mitral regurgitation.
[2018-05-31] MEDS ORDERED: IRBESARTAN 150 MG TAB PO SCH (21:00)
[2018-05-31] MEDS: ISOSORBIDE MONONITRATE 10MG TABLET PO SCH (21:15)
[2018-05-31] MEDS: SLF 3 ML SYR IV SCH (22:00)
[2018-05-31 23:59] VITALS: BP 150/52
[2018-06-01] MEDS: FUROSEMIDE 100 MG/10 ML VIAL (J1940) IV SCH ×3 (00:10→13:08)
[2018-06-01 04:00] VITALS: BP 131/84
[2018-06-01 05:46] LABS: HEMATOCRIT 30.3 % (36.0-47.0); MEAN CORPUSCULAR HEMOGLOBIN 29.7 pg (27.0-33.0); MEAN CORPUSCULAR HGB CONC 32.7 g/dl (32.0-36.5); PLATELET COUNT, AUTOMATED 148 10^3/uL (150-450); RED BLOOD COUNT 3.33 10^6/uL (4.00-5.40); WHITE BLOOD COUNT 8.7 10^3/uL (4.0-10.0)
[2018-06-01 05:56] LABS: HEMOGLOBIN 9.9 g/dl (12.0-15.5)
[2018-06-01] MEDS: LEVOTHYROXINE 150MCG TABLET (0.15MG) PO SCH (05:57)
[2018-06-01] MEDS: SLF 3 ML SYR IV SCH ×3 (05:57→21:31)
[2018-06-01 06:00] LABS: CREATININE FOR GFR 1.74 MG/DL (0.55-1.30); GLOMERULAR FILTRATION RATE 30.1 (>39); POTASSIUM SERUM 4.3 MEQ/L (3.5-5.1)
[2018-06-01] MEDS: ISOSORBIDE MONONITRATE 10MG TABLET PO SCH ×2 (06:37→17:25)
[2018-06-01 08:00] VITALS: BP 122/66
[2018-06-01] MEDS ORDERED: NEBIVOLOL 5 MG TAB (BYSTOLIC) PO SCH (09:00)
[2018-06-01] MEDS ORDERED: amLODIPine 5 MG TAB PO SCH (09:00)
[2018-06-01] MEDS: ALLOPURINOL 100 MG TAB PO SCH (09:14)
[2018-06-01] MEDS: ASPIRIN 81 MG ENTERIC TAB PO SCH (09:14)
[2018-06-01] MEDS: CALCITRIOL 0.25 MCG CAP (S0169) PO SCH (09:14)
[2018-06-01] MEDS: HYDROXYCHLOROQUINE 200 MG TAB PO SCH (09:14)
[2018-06-01] MEDS: SITagliptin 50 MG TAB (JANUVIA) PO SCH (09:14)
[2018-06-01] MEDS: ENOXAPARIN 30 MG/0.3 ML SYR (J1650) SC SCH (09:17)
[2018-06-01] MEDS: HumaLOG INSULIN (NovoLOG) PER UNIT SC SCH ×4 (09:18→21:00)
--- NOTE | 2018-06-01 09:19 | ECGEPIP ---
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
[2018-06-01] MEDS ORDERED: PILL CRUSHER/CUTTER 1 EACH XX PRN (09:45)
[2018-06-01 12:00] VITALS: BP 112/54
--- NOTE | 2018-06-01 15:22 | IPN ---
CARDIOLOGY PROGRESS NOTE: 06/01/2018 Time: 2:56 pm SUBJECTIVE: Patient reports she walked around the progressive care unit twice without any shortness of breath today. She feels her breathing is back to baseline. She had some mild anterior chest heaviness when she got back from her walk. No dizziness or lightheadedness. No palpitations. PHYSICAL EXAMINATION: Obese. Temperature 98.8, BMI 36.1, pulse 56 (regular), respiratory rate 18, blood pressure 112/54, jugular venous pulsations were at 5 cm. Respiratory expansion effort was good. No crackles or wheezes. First and second heart sounds normal. No S3 or S4 or murmurs appreciated. Abdomen was obese, soft, nontender with normal bowel sounds. Trace edema in both legs. LABORATORY WORK: 06/01/2018 Shows sodium 140, potassium 4.3, chloride 106, CO2 27, BUN 30, creatinine 1.74, estimated GFR 30.1, glucose 280, calcium 9.0, magnesium 2.0. ASSESSMENT AND RECOMMENDATIONS: 1. Acute diastolic heart failure. Patient appears to be at her functional dry weight (compensated). Blood pressure has come under excellent control. The patient has developed some mild worsening of her renal dysfunction. At this point, I will change her from IV furosemide back to torsemide. At least a higher dose of torsemide than what she came in on. She came in on torsemide 20 mg once a day. I will increase torsemide to 20 mg once a day in the morning and an additional 10 mg at 4:00 pm. Because of the decrease in renal function, I will discontinue irbesartan at least temporarily. I will lower the dose of Bystolic to allow a faster resting heart rate. I will decrease Bystolic to 2.5 mg daily instead of 5 mg daily. Continue isosorbide mononitrate 10 mg twice a day. 2. Systemic hypertension. As noted above, blood pressure have come under good control. Medications changes for the antihypertensive regimen as described above. 3. History of paroxysmal supraventricular tachycardia (PSVT) and multifocal atrial tachycardia. I will decrease the dosage of beta sanjana as described above. She is remaining stable with regards to PSVT issues on beta sanjana. 4. Coronary artery disease (CAD). Patient reports an episode of chest discomfort after walking around the progressive care unit twice. She will be considered for an outpatient cardiac nuclear stress test. 5. Hypercholesterolemia. Patient is not presently on statin. 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 Currently on a cardiac diet. No recent lipid available for my review. 6. Abnormal ECG. Stable. 7. Chest pain, unspecified. Patient will be considered for a cardiac nuclear stress test as an outpatient. 8. Hypertensive heart disease with heart failure. As per heart failure and systemic hypertension categories above.
[2018-06-01 16:00] VITALS: BP 110/50
--- NOTE | 2018-06-01 17:33 | IPNPDOC ---
Subjective Date Seen The patient was seen on 06/01/18. Subjective Chief Complaint/HPI Much less SOB. no new complaints Constitutional: Denies: Chills, Fever Pulmonary: Reports: Dyspnea; Denies: Cough Cardiovascular: Denies: Chest Pain, Palpitations Gastrointestinal: Denies: Nausea, Vomiting, Abdominal Pain, Diarrhea, Constipation Objective Physical Examination General Exam: Positive: Alert, No Acute Distress Chest Exam: Positive: Clear to auscultation; Negative: Rales, Rhonchi, Wheezing Abdomen Exam: Positive: Normal bowel sounds, Soft; Negative: Tenderness Extremity Exam: Negative: Edema Assessment /Plan Problems (1) Acute decompensated heart failure Status: Acute Response to Treatment: Improving Problem Text: Good diuresis with IV Lasix. Dr. Cooney saw pt in consultation. Switched back to Torsemide now. BP meds adjusted Probable d/c in am (2) CKD (chronic kidney disease) stage 3, GFR 30-59 ml/min Status: Chronic Response to Treatment: Stable Problem Text: BUN/CRE up slightly with diuresis - monitor trend (3) Diabetes Status: Chronic Response to Treatment: Stable Plan/VTE VTE Prophylaxis Ordered?: Yes (Lovenox) VS, I&O, 24H, Fishbone Vital Signs/I&O Vital Signs Date Time Temp Pulse Resp B/P (MAP) Pulse Ox O2 Delivery O2 Flow Rate FiO2 06/01/18 17:25 118/60 06/01/18 16:00 98.9 63 18 99 05/31/18 22:55 Full Face Mask 21 I&O- Last 24 Hours up to 6 AM 06/01/18 06:00 Intake Total 900 ml Output Total 3000 ml Balance -2100 ml Laboratory Data 24H LABS Laboratory Tests 2 05/31/18 17:31: Bedside Glucose (Misc Panel) 158H 05/31/18 20:35: Bedside Glucose (Misc Panel) 296H 06/01/18 05:19: Nucleated Red Blood Cells % (auto) 0.0, Anion Gap 7L, Glomerular Filtration Rate 30.1L, Blood Urea Nitrogen 30H, Creatinine 1.74H, Sodium Level 140, Potassium Level 4.3, Chloride Level 106, Carbon Dioxide Level 27, Calcium Level 9.0, Magnesium Level 2.0 06/01/18 11:32: Bedside Glucose (Misc Panel) 120H CBC/BMP Laboratory Tests 06/01/18 05:19 Red Blood Count 3.33 L, Mean Corpuscular Volume 91.0, Mean Corpuscular Hemoglobin 29.7, Mean Corpuscular Hemoglobin Concent 32.7, Red Cell Distribution Width 13.6, Calcium Level 9.0 SHERRY FISH PA-C Jun 01, 2018 17:33
[2018-06-01 19:06] VITALS: BP 100/58
[2018-06-02] VITALS (7 sets, daily range): BP systolic 112–150; BP diastolic 50–74
[2018-06-02 05:42] LABS: HEMATOCRIT 29.6 % (36.0-47.0); HEMOGLOBIN 9.6 g/dl (12.0-15.5); MEAN CORPUSCULAR HGB CONC 32.4 g/dl (32.0-36.5); MEAN CORPUSCULAR VOLUME 92.5 fl (80.0-96.0); PLATELET COUNT, AUTOMATED 150 10^3/uL (150-450); WHITE BLOOD COUNT 10.9 10^3/uL (4.0-10.0)
[2018-06-02 06:00] LABS: CALCIUM LEVEL 9.1 MG/DL (8.8-10.2); CREATININE FOR GFR 2.19 MG/DL (0.55-1.30); GLOMERULAR FILTRATION RATE 23.1 (>39); MAGNESIUM LEVEL 2.1 MG/DL (1.8-2.4); POTASSIUM SERUM 3.4 MEQ/L (3.5-5.1)
[2018-06-02] MEDS: SLF 3 ML SYR IV SCH ×3 (06:12→17:33)
[2018-06-02] MEDS: LEVOTHYROXINE 150MCG TABLET (0.15MG) PO SCH (06:12)
[2018-06-02] MEDS: ISOSORBIDE MONONITRATE 10MG TABLET PO SCH ×2 (06:40→17:32)
[2018-06-02] MEDS: SITagliptin 50 MG TAB (JANUVIA) PO SCH (08:18)
[2018-06-02] MEDS: ASPIRIN 81 MG ENTERIC TAB PO SCH (08:18)
[2018-06-02] MEDS: CALCITRIOL 0.25 MCG CAP (S0169) PO SCH (08:18)
[2018-06-02] MEDS: HYDROXYCHLOROQUINE 200 MG TAB PO SCH (08:19)
[2018-06-02] MEDS: ENOXAPARIN 30 MG/0.3 ML SYR (J1650) SC SCH (08:19)
[2018-06-02] MEDS: ALLOPURINOL 100 MG TAB PO SCH (08:19)
[2018-06-02] MEDS: HumaLOG INSULIN (NovoLOG) PER UNIT SC SCH ×2 (08:20→12:00)
[2018-06-02] MEDS ORDERED: NEBIVOLOL 5 MG TAB (BYSTOLIC) PO SCH (09:00)
[2018-06-02] MEDS ORDERED: TORSEMIDE 20 MG TAB PO SCH (09:00)
--- NOTE | 2018-06-02 09:04 | IPNPDOC ---
Subjective Date Seen The patient was seen on 06/02/18. Subjective Chief Complaint/HPI Dyspnea has improved. Ambulated with PT yesterday without significant dyspnea Constitutional: Denies: Chills, Fever Pulmonary: Denies: Dyspnea, Cough Cardiovascular: Denies: Chest Pain, Palpitations, Orthopnea, Paroxysmal Noc. Dyspnea Gastrointestinal: Denies: Nausea, Vomiting, Abdominal Pain, Diarrhea, Constipation Objective Physical Examination General Exam: Positive: Alert, No Acute Distress Chest Exam: Positive: Clear to auscultation; Negative: Rales, Rhonchi, Wheezing Telemetry: Positive: Bradycardia (HR in 50s) Abdomen Exam: Positive: Normal bowel sounds, Soft; Negative: Tenderness Extremity Exam: Negative: Edema Assessment /Plan Problems (1) Acute decompensated heart failure Status: Acute Response to Treatment: Improving Problem Text: at functional dry weight (2) CKD (chronic kidney disease) stage 3, GFR 30-59 ml/min Status: Chronic Response to Treatment: Stable Problem Text: 06/02 to 2.2; therefore, irbe 75 held (LD 05/31 2300), fur 80 IV held (LD 06/01 1300) baseline cr ~1.8 (3) Diabetes Status: Chronic Response to Treatment: Stable (4) Physical deconditioning Status: Acute Problem Text: 06/02 not safe to dc home Plan/VTE VTE Prophylaxis Ordered?: Yes (Lovenox) Plan Therapy: PT Disposition D/C home once cleared by Cardio VS, I&O, 24H, Fishbone Vital Signs/I&O Vital Signs Date Time Temp Pulse Resp B/P (MAP) Pulse Ox O2 Delivery O2 Flow Rate FiO2 06/02/18 08:20 55 130/60 06/02/18 08:00 97.7 20 97 05/31/18 22:55 Full Face Mask 21 I&O- Last 24 Hours up to 6 AM 06/02/18 06:00 Intake Total 690 ml Output Total 800 ml Balance -110 ml Laboratory Data 24H LABS Laboratory Tests 2 06/01/18 11:32: Bedside Glucose (Misc Panel) 120H 06/01/18 18:00: Bedside Glucose (Misc Panel) 136H 06/01/18 21:25: Bedside Glucose (Misc Panel) 195H 06/02/18 05:28: Nucleated Red Blood Cells % (auto) 0.0, Anion Gap 10, Glomerular Filtration Rate 23.1L, Blood Urea Nitrogen 56#H, Creatinine 2.19H, Sodium Level 142, Potassium Level 3.4#L, Chloride Level 105, Carbon Dioxide Level 27, Calcium Level 9.1, Magnesium Level 2.1 CBC/BMP Laboratory Tests 06/02/18 05:28 Red Blood Count 3.20 L, Mean Corpuscular Volume 92.5, Mean Corpuscular Hemoglobin 30.0, Mean Corpuscular Hemoglobin Concent 32.4, Red Cell Distribution Width 14.1, Calcium Level 9.1 SHERRY FISH PA-C Jun 02, 2018 09:04 Sohail King M.D. Jun 02, 2018 17:21
[2018-06-02] MEDS ORDERED: POTASSIUM CHLORIDE 10 MEQ SR TABLET PO ONE (12:00)
[2018-06-02] MEDS: MIRALAX *UNIT DOSE* 17GM PACKET PO SCH (12:07)
--- NOTE | 2018-06-02 15:23 | CR ---
DATE OF CONSULTATION: 05/31/2018 REFERRING PHYSICIAN: Dr. Wayne Guardado. INDICATION: Acute diastolic heart failure. HISTORY OF PRESENT ILLNESS (HPI): Mrs. Kendra Lamar is a pleasant 78-year-old obese, woman with systemic hypertension, hypercholesterolemia, frequent premature atrial contractions (PACs), nonsustained atrial tachycardia and recurrent multifocal atrial tachycardia and prior documentation of mild coronary artery disease (CAD) by coronary angiography. The patient reports that she was in her usual state of health until yesterday morning when she developed rapidly progressive exertional dyspnea to the point of dyspnea at rest including orthopnea and paroxysmal nocturnal dyspnea (PND). Since yesterday she has noticed swelling in her fingers but not in her feet or legs. She has been having some nonproductive cough as well. No fever or chills. Since yesterday morning she is noticing mild central anterior chest pressure and tightness (no pain) with radiation which has been constant and is momentarily made worse with coughing. She has been feeling bursts of rapid palpitations frequently since yesterday morning. No presyncope or syncope. No embolic events. No intermittent claudication. I shall summarize the patient's known cardiac history and prior noninvasive cardiac testing. She has coronary atherosclerosis with a prior cardiac catheterization 04/23/1999 showing mild to moderate diffuse disease in the ramus intermedius artery. Her last cardiac nuclear stress test was 09/2017 which at that time was angina negative, EKG negative, and showed normal SPECT myocardial perfusion and normal left ventricular (LV) wall motion and systolic function (lVF 69%), ungated short axis. Prior to echocardiogram today she had an echocardiogram Doppler at [facility] 07/2012 which reported LVEF estimated to be 55-60%, serially normal LV filling pattern and mildly dilated left atrium. Echocardiogram Doppler today (05/31/2018) has been reported under separate cover. It showed normal left ventricle internal dimensions and wall thickness. Normal region LV wall motion and wall thickening. Left ventricular ejection fraction (LVEF) 65% by visual estimate. Grade 1 LV diastolic dysfunction. Normal right ventricle size and systolic function. Very small pericardial effusion without diastolic chamber collapse. Right pleural effusion. Mild aortic valve sclerosis. Mild mitral and annular calcification with trace mitral regurgitation. Dilated inferior vena cava. Central venous pressure estimated to be 5-10 mmHg. Her last available Holter Monitor report was 10/18/2014, which showed predominantly sinus rhythm with some sinus bradycardia with occasional PVCs (1.3%) including atrial couplets and 126 nonsustained atrial runs, very rare PVCs. No ventricular tachycardia. No sustained SVT. At that time she was on Amiodarone 200 mg twice a day. ADVERSE DRUG REACTIONS: PENICILLINS, BACLOFEN, CIPROFLOXACIN, CODEINE, ERYTHROMYCIN BASE, GABAPENTIN, MORPHINE, SUMATRIPTAN, MEDICATIONS PRIOR TO ADMISSION: - allopurinol 100 mg daily - vitamin C 250 mg daily - bisoprolol 5 mg twice a day - calcitriol 0.5 mg daily - famotidine 20 mg twice a day - glimepiride 2 mg in the evening and 4 mg in the morning - hydroxychloroquine 200 mg daily - irbesartan 37.5 mg daily - Xopenex two puffs four times a day as needed - Synthroid 150 mcg daily - multivitamin two daily - Advair Diskus one inhalation twice a day - Januvia 25 mg daily - torsemide 20 mg daily CURRENT MEDICATIONS IN THE HOSPITAL: - allopurinol 100 mg daily - calcitriol 0.5 mcg daily - hydroxychloroquine 200 mg daily - amlodipine 5 mg daily - Januvia 25 mg daily - Synthroid 150 mcg daily - Humalog insulin for sliding scale - Furosemide 80 mg IV every 6 hours - nitroglycerin 0.4 mg every 5 minutes as needed - DuoNebs every 20 minutes as needed - Lovenox 30 mg subcutaneous daily OTHER PAST MEDICAL AND SURGICAL HISTORY: 1. Liver cirrhosis secondary to nonalcoholic steatohepatitis. 2. Obstructive sleep apnea on C-PAP ( followed by Dr. Abdi Fang). 3. Gout. 4. Hypothyroidism. 5. Type 2 diabetes. 6. Asthma. 7. Hypertensive heart disease. 8. Sellar arachnoid cyst. 9. Scleroderma. 10. Systemic retention. 11. Nonsustained atrial tachycardia and PACs. 12. Multifocal atrial tachycardia. 13. Hypercholesterolemia. 14. Abnormal ECG. 15. Coronary atherosclerosis proven by cardiac catheterization as noted above. 16. Chronic kidney disease Stage IIIb. 17. Deep venous thrombosis right upper extremity 06/19/2014 status post Peripherally inserted center catheter (PICC) line. 18. Hypermagnesemia. 19. Prior smoking history, one pack per day times 19 years, she quit in 1971. 20. Tonsillectomy with adenoidectomy. 21. Appendectomy. 22. Partial hysterectomy. 23. Status post cholecystectomy. 24. Status post thyroidectomy. 25. Shoulder scraping. 26. Back surgery fusion. 27. Right hip surgery 11/2009. 28. Left hip surgery 09/2010. 29. Knee replacement left, 06/19/2014. 30. Cataract extraction 2016. FAMILY HISTORY: Father had CAD with prior myocardial infarcts and diabetes, . Mother had a stroke and diabetes, . One brother with diabetes who is from diabetes complications. One sister with heart disease and breast cancer, . SOCIAL HISTORY: . Retired. Independent with activities or daily living. Prior smoking history between [id number] where she smoked 1-1.5 pack of cigarettes a day. No alcohol, limited by shortness of breath and back pain and orthopedic problems. REVIEW OF SYSTEMS: As per HPI above. Decreased hearing and tinnitus. Has a right heart aid. Edentulous for which she has upper and lower dentures. Exertional shortness of breath with moderate activity prior to worsening dyspnea in the past two days. Gastroesophageal reflux disease (GERD). Nocturia once a night. Arthralgias, arthritis, myalgias. Headaches. No anxiety, panic attacks or depression. Hair loss. All other 10-point review of systems negative. PHYSICAL EXAMINATION: GENERAL: Pleasant, obese woman who appears her chronologic age who is not in any respiratory or psychological distress. VITAL SIGNS: 67 inches, weight 104.8 kg, body mass index (BMI) 36.2. Temperature 98.4, pulse 84 (regular), respiratory rate 22, blood pressure 180/80, O2 saturation 96% on room air. No conjunctival pallor, sclerae icterus, or xanthelasma. Upper and lower dentures present. Oral mucosa was moist and without pallor or stenosis. Jugular venous pulsations were at 10 cm. Trachea midline. No palpable thyroid. No clubbing of nail beds or splinter hemorrhages. No skin lesions, skin pallor or icterus. Oriented to person, place and time. Mood and affect normal. Curvature of the spine normal. Gait not tested as patient is presently on bedrest. Gross motor strength and tone normal. No abnormal heart sounds. First and second heart sounds normal. No S3 or S4 or murmurs. Respiratory expansion effort was good. No dullness to percussion. No crackles or wheezes. Abdomen was obese as well as . Deep palpation was not performed because of current . No tenderness to light palpation. Liver span difficult to assess due to abdominal obesity and . Pedal pulse is normal. No lower extremity edema. Gross motor strength and tone intact. Skin appeared normal. No clubbing of nail beds, cyanosis, or splinter hemorrhages. Mood and affect were all normal. Oriented to person, place and time. Gait not tested. No abnormal muscle atrophy, fasciculations or tremors. Respiratory expansion and effort was fair. No wheezes. No crackles. No dullness to percussion. No palpable apex beat. No parasternal heaves, thrills, or palpable heart sounds. First heart sound was diminished. Second heart sound was accentuated. No S3 or S4 or murmurs appreciated. Carotids were normal in volume and contour and without bruits. No palpable abdominal aorta but difficult to palpate due to abdominal obesity. Femoral pulses normal. Pedal pulses normal. 1 mm bilateral pitting edema at mid tibial level bilaterally. No varicose veins. Abdomen was soft, nontender, with normal bowel sounds. No hepatosplenomegaly or organomegaly. Liver span was difficult to assess due to abdominal obesity. Stool for occult blood not presently indicated. Echocardiogram Doppler 05/30/2018 has been reported under separate cover. Please refer to that report separately. I have independently visualized the patient's PA and lateral chest x-ray acquired on 05/31/2018 at 2:04 p.m. It shows cardiomegaly. Enlarged left and right pulmonary arteries. Pulmonary vascular redistribution is present. Some peribronchial edema is present. Some Kendall B lines were present. Blunting of the costophrenic angles on both sides suggestive of small bilateral pleural effusions. Mild interstitial pulmonary edema. No alveolar edema. Kyphosis. Some degenerative changes involving the thoracic spine. A kristin with screws was seen involving the lower thoracic and upper lumbar spine. I have reviewed the patient's electrocardiogram acquired 05/31/2018 at 1340 hours. It shows sinus bradycardia with occasional PVCs, overall heart rate 54 beats per minutes (bpm). Poor R wave progression. LABORATORY DATA 05/31/2018 AT 1322 HOURS IS REVIEWED: Hemoglobin 18.1, hematocrit 56.9, platelets 83, PT/INR 1.07. Sodium 142, potassium 4.2, chloride 109, CO2 28, BUN 20, creatinine 1.39, estimated GFR 39.0. Glucose 168, total bilirubin 0.6, direct bilirubin 0.2, AST 16, ALT 25, alkaline phosphatase 62. CPK 54, CPK MB less than 1.0. Troponin I less than 0.02. NT-proBNP 2931. Total protein 6.8, albumin 3.6, TSH 3.400, free T4 1.50. ASSESSMENT AND RECOMMENDATIONS: 1. Acute diastolic heart failure. The patient has pre-existing hypertensive heart disease. There is no obvious trigger for what caused precipitation of this patient's episode of acute heart failure. She was quite hypertensive when she came into the hospital and uncontrolled systemic hypertension may well be the most likely trigger. She does report ongoing precordial chest discomfort with the non-anginal feature of varied with breathing and it's prolonged nature in the absence of myocardial infarction. It is possible that she may be having some subendocardial myocardial ischemia, not enough to cause infarction but as a consequence of high left ventricle filling pressures due to decompensated heart failure. Factors that contribute to this patient's diastolic heart failure include chronic kidney disease, longstanding type 2 diabetes, systemic retention, age, and perhaps some affective coronary artery disease. Agree with the current course of intravenous Furosemide. I recommend restarting the patient on her low dose of irbesartan and discontinuation of amlodipine. Bisoprolol has been discontinued. I think that she will get into trouble with multifocal atrial tachycardia if the beta-sanjana remains off. I will therefore substitute the Bisoprolol for Bystolic (nebivolol). Hopefully she can transition by tomorrow from IV Furosemide to torsemide. 2. Systemic retention. Uncontrolled systemic hypertension. I will add Bystolic to replace Bisoprolol. I will restart irbesartan and discontinue amlodipine. Continue IV Furosemide for now. Will follow with you. 3. History of multifocal atrial tachycardia and premature atrial contractions (PACs). She has been on Bisoprolol for this. I will switch her from Bisoprolol which has been discontinued over to Bystolic. Agree with telemetry. 4. Coronary artery disease (tejon vessel) angina. Her last cardiac nuclear stress test showed normal stress myocardial perfusion. I will restart irbesartan. At the moment she is not on aspirin because her platelets are low. 5. Hypercholesterolemia. The patient is not presently on statin therapy. She is known to have CAD and type 2 diabetes. No recent lipid values are available for my review at this time. Recommend a low fat, all fruit, plant based diet. 6. Abnormal ECG, ECG findings as described above. 7. Chest pain unspecified. The patient has ruled out for acute myocardial infarction. I believe that her chest discomfort might be due to some degree of subendocardial myocardial ischemia due to high filling pressure secondary to decompensated heart failure. As additional therapy for heart failure, I will place her on isosorbide mononitrate. 8. Hypertensive heart disease with heart failure. Management of systemic hypertension and heart failure as described above. Thank you kindly for asking me to participate in the cardiac care of Mrs. Kendra Lamar. NARDA
[2018-06-02] MEDS ORDERED: TORSEMIDE 10 MG TABLET PO SCH (16:00)
[2018-06-03 04:00] VITALS: BP 144/62
[2018-06-03 05:28] LABS: HEMATOCRIT 30.1 % (36.0-47.0); HEMOGLOBIN 9.7 g/dl (12.0-15.5); MEAN CORPUSCULAR HEMOGLOBIN 29.8 pg (27.0-33.0); MEAN CORPUSCULAR HGB CONC 32.2 g/dl (32.0-36.5); MEAN CORPUSCULAR VOLUME 92.6 fl (80.0-96.0); PLATELET COUNT, AUTOMATED 140 10^3/uL (150-450); RED BLOOD COUNT 3.25 10^6/uL (4.00-5.40); WHITE BLOOD COUNT 7.7 10^3/uL (4.0-10.0)
[2018-06-03 05:43] LABS: CALCIUM LEVEL 8.8 MG/DL (8.8-10.2); CREATININE FOR GFR 1.56 MG/DL (0.55-1.30); GLOMERULAR FILTRATION RATE 34.2 (>39); MAGNESIUM LEVEL 2.1 MG/DL (1.8-2.4); POTASSIUM SERUM 3.8 MEQ/L (3.5-5.1)
[2018-06-03] MEDS: SLF 3 ML SYR IV SCH ×2 (06:00→12:36)
[2018-06-03 06:40] VITALS: BP 146/64
[2018-06-03] MEDS: ISOSORBIDE MONONITRATE 10MG TABLET PO SCH (06:40)
[2018-06-03] MEDS: LEVOTHYROXINE 150MCG TABLET (0.15MG) PO SCH (06:40)
[2018-06-03 08:00] VITALS: BP 138/68
[2018-06-03] MEDS: SITagliptin 50 MG TAB (JANUVIA) PO SCH (08:51)
[2018-06-03] MEDS: MIRALAX *UNIT DOSE* 17GM PACKET PO SCH (08:51)
[2018-06-03] MEDS: HYDROXYCHLOROQUINE 200 MG TAB PO SCH (08:51)
[2018-06-03] MEDS: ALLOPURINOL 100 MG TAB PO SCH (08:51)
[2018-06-03] MEDS: ENOXAPARIN 30 MG/0.3 ML SYR (J1650) SC SCH (08:51)
[2018-06-03] MEDS: ASPIRIN 81 MG ENTERIC TAB PO SCH (08:52)
[2018-06-03] MEDS: CALCITRIOL 0.25 MCG CAP (S0169) PO SCH (08:52)
[2018-06-03 12:00] VITALS: BP 130/70
[2018-06-03] MEDS ORDERED: BISACODYL 5 MG TAB PO PRN (12:45)
--- NOTE | 2018-06-03 13:54 | IPNPDOC ---
Subjective Date Seen The patient was seen on 06/03/18. Subjective Chief Complaint/HPI dyspnea at baseline Constitutional: Denies: Chills Eyes: Denies: Pain ENT: Denies: Head Aches Skin: Denies: Rash Pulmonary: Denies: Dyspnea, Cough Cardiovascular: Denies: Chest Pain Gastrointestinal: Denies: Nausea, Vomiting Objective Physical Examination General Exam: Positive: Alert, No Acute Distress Chest Exam: Positive: Clear to auscultation; Negative: Rales, Rhonchi, Wheezing Telemetry: Positive: Bradycardia (HR in 50s) Abdomen Exam: Positive: Normal bowel sounds, Soft; Negative: Tenderness Extremity Exam: Negative: Edema Assessment /Plan Problems (1) Acute decompensated heart failure Status: Acute Response to Treatment: Improving Problem Text: at functional dry weight (2) CKD (chronic kidney disease) stage 3, GFR 30-59 ml/min Status: Chronic Response to Treatment: Stable Problem Text: 06/02 to 2.2; therefore, irbe 75 held (LD 05/31 2300), fur 80 IV held (LD 06/01 1300) baseline cr ~1.8 (3) Diabetes Status: Chronic Response to Treatment: Stable (4) Physical deconditioning Status: Acute Problem Text: 06/02 not safe to dc home Plan/VTE VTE Prophylaxis Ordered?: Yes (Lovenox) Plan Therapy: PT VS, I&O, 24H, Fishbone Vital Signs/I&O Vital Signs Date Time Temp Pulse Resp B/P (MAP) Pulse Ox O2 Delivery O2 Flow Rate FiO2 06/03/18 08:00 97.9 59 18 138/68 (91) 96 05/31/18 22:55 Full Face Mask 21 I&O- Last 24 Hours up to 6 AM 06/03/18 06:00 Intake Total 340 ml Output Total 1375 ml Balance -1035 ml Laboratory Data 24H LABS Laboratory Tests 2 06/02/18 17:07: Bedside Glucose (Misc Panel) 125H 06/03/18 00:22: Bedside Glucose (Misc Panel) 140H 06/03/18 05:09: Nucleated Red Blood Cells % (auto) 0.0, Anion Gap 8, Glomerular Filtration Rate 34.2L, Blood Urea Nitrogen 51H, Creatinine 1.56H, Sodium Level 142, Potassium Level 3.8, Chloride Level 109H, Carbon Dioxide Level 25, Calcium Level 8.8, Magnesium Level 2.1 06/03/18 11:29: Bedside Glucose (Misc Panel) 153H CBC/BMP Laboratory Tests 06/03/18 05:09 Red Blood Count 3.25 L, Mean Corpuscular Volume 92.6, Mean Corpuscular Hemoglo bin 29.8, Mean Corpuscular Hemoglobin Concent 32.2, Red Cell Distribution Width 14.1, Calcium Level 8.8 Sohail King M.D. Jun 03, 2018 13:54
[2018-06-03] MEDS ORDERED: ISOS10TAB PO (14:15)
[2018-06-03] MEDS ORDERED: BYST2.5T2 PO (14:15)
--- NOTE | 2018-06-04 10:46 | DSES ---
DATE OF ADMISSION: 05/31/2018 DATE OF DISCHARGE: 06/03/2018 DISCHARGE DIAGNOSES: 1. Acute on chronic diastolic heart failure. 2. Hypertension. 3. Paroxysmal multifocal atrial tachycardia. 4. Paroxysmal supraventricular tachycardia (SVT). 5. Asthma. 6. Mild persistent obstructive sleep apnea (MARY KATE). 7. Hypothyroidism. 8. Coronary artery disease. HOSPITAL COURSE: The patient was admitted with dyspnea secondary to mild decompensated acute on chronic diastolic heart failure. Transesophageal echocardiogram (SNOW) showed persistent left ventricular ejection fraction (LVEF) of 65% with a suggestive central venous pressure (CVP) of 5-10. She diuresed quickly with intravenous (IV) furosemide to the point that she over diuresed and went into mild acute kidney injury (MICAELA) grade 1 with a creatinine up to 2.2. Therefore, her angiotensin receptor sanjana (ARB) was replaced with isosorbide mononitrate 10 twice a day. Given her bradycardia down to sinus sherman into the 50s to low 60s on her home dose of bisoprolol 5 daily it was switched to Bystolic 2.5 daily. Using this specific , she also has had a history of stable angina symptoms with exercise for which Dr. Jarrett's office has been unable to perform a nuclear stress test given poor venous access. The case was discussed with Dr. Jarrett prior to discharge, and his thoughts were if she had recurrent exercise induced angina that we can consider going straight toward to a cardiac catheterization in the future. The patient was cleared to be safe by physical therapy (PT) prior to discharge, and she was instructed to followup with Dr. New and Dr. Jarrett within the next week.
== END 2018-06-03 14:48 | disposition home or self-care (01) | DRG 291 ==
LOC: M ED 12:52 → M ED INP 14:23 → M PCU 17:09
PROVIDERS: ADMIT Family Medicine; ATTEND Family Medicine
DX: I13.0 Hypertensive heart and chronic kidney disease with heart failure and stage 1 through stage 4 chronic kidney disease, or unspecified chronic kidney disease (principal); I50.33 Acute on chronic diastolic (congestive) heart failure; I47.1 Supraventricular tachycardia; N13.30 Unspecified hydronephrosis; N17.9 Acute kidney failure, unspecified; N18.3 Chronic kidney disease, stage 3 (moderate); E03.9 Hypothyroidism, unspecified; I25.10 Atherosclerotic heart disease of native coronary artery without angina pectoris; G47.33 Obstructive sleep apnea (adult) (pediatric); J45.909 Unspecified asthma, uncomplicated; K75.81 Nonalcoholic steatohepatitis (NASH); M10.9 Gout, unspecified; E11.9 Type 2 diabetes mellitus without complications; M34.9 Systemic sclerosis, unspecified; Z96.641 Presence of right artificial hip joint; Z88.1 Allergy status to other antibiotic agents; Z88.0 Allergy status to penicillin; Z88.5 Allergy status to narcotic agent; Z88.8 Allergy status to other drugs, medicaments and biological substances; Z88.6 Allergy status to analgesic agent; Z79.899 Other long term (current) drug therapy; D75.1 Secondary polycythemia; E78.00 Pure hypercholesterolemia, unspecified; Z87.891 Personal history of nicotine dependence

== ENCOUNTER → 2018-06-09 | Outpatient (CLI) | payer MEDICARE, BC ==
[~2018-06-09] MED LIST changes: +ASPI-1 PO; -ASPI325T PO; +BISO10TA13 PO; +BISO5TAB5 PO; +BYST2.5T2 PO; +FAMO1TAB11 PO; +IRBE75TA5 PO; +ISOS10TAB PO; +JANU25TA PO; +LEVAINH INH; +MULT1TAB8 PO; +MULTCHW14 PO; -NAPR-50 PO; +NAPR-837 PO; +ROCA0.5C PO; +TOPR100T PO; -TOPR100T13 PO; +VITA125C2 PO
--- NOTE | 2018-06-10 00:46 | ECWPNPC ---
PATIENT NAME: CINDI LYELS : 1940 GENDER: FEMALE VISIT DATE: 06/09/2018 DISCHARGE DATE: 06/09/18 1132 VISIT LOCKED DATE TIME: PHYSICIAN: JOSIANE KAY PHYSICIAN PAGER NO: [phone] RESOURCE: JOSIANE KAY REASON FOR APPOINTMENT 1. NPC PACKET SCANNED IN IN JANUARY 2018 HISTORY OF PRESENT ILLNESS PAIN SCREENIN78 Y/O FEMALE REFERRED BY FOR EVALUATION OF CHRONIC LEFT ARM /HAND PAIN AND NUMBNESS.THIS BEGAN WITHOUT PRECIPITATING EVENT APPROXIMATLEY ONE YEAR AGO.DESCRIBES INTERMITTENT GLOVE LIKE NUMBNESS OVER LEFT HAND.REPORTS CONSTANT LEFT UPPER ARM PAIN.HAS VERY LIMITERD USE OF LEFT ARM DUE TO PAIN.STATES SHE REQUIRES ASSISTANCE TO DRESS.HISTORY OF MULTIPLE COMORBIDITIES.CANT TOLERATE MEDICATIONS.HAS NON ALCOHOLIC LIVER DISEASE.RECENT DIAGNOSIS OF CONGESTIVE HEART FAILURE.APPEARS HEALTHY ALTHOUGH SHE LOOKS UNCOMFORTABLE.STATES SHE HAS NEVER HAD IMAGING OF HER NECK OR LEFT SHOULDER.NERVE CONDUCTION STUDIES OF LEFT ARM REVEAL CHRONIC LEFT C5/6 RADICULOPATHY.THIS TEST ALSO REVEALS MILD COMPRESSION OF LEFT MEDIAN MOTOR AND SENSORY NERVES ACROSS WRIST AND MODERATE COMPRESSION OF LEFT ULNAR MOTOR NERVE ACROSS WRIST AND FOREARM.RATING PAIN VAS 5/10. PATIENT HAS A COMPLAINT OF ACUTE OR CHRONIC PAIN :YES FALL RISK SCREENING: SCREENING :NO FALLS REPORTED IN THE LAST YEAR CURRENT MEDICATIONS TAKING LEVOTHYROXINE SODIUM 150 MCG TABLET 1 TABLET ON AN EMPTY STOMACH IN THE MORNING ORALLY ONCE A DAY TAKING ADVAIR DISKUS 250-50 MCG/DOSE AEROSOL POWDER BREATH ACTIVATED 1 PUFF INHALATION TWICE A DAY TAKING TORSEMIDE 20 MG TABLET 1 TAB ONCE DAILY ORALLY 90 DAYS TAKING ALLOPURINOL 100MG TABLET 1 TAB(S) ORALLY ONCE DAILY TAKING HYDROXYCHLOROQUINE SULFATE 200 MG TABLET 1 TABLETS WITH FOOD OR MILK ORALLY DAILY TAKING CALCITRIOL 0.25 MCG CAPSULE 1 CAPSULE ORALLY ONCE A DAY TAKING GLIMEPIRIDE 4 MG TABLET ONE HALF TAB ORALLY BID TAKING MULTI ADULT GUMMIES 1 TABLET CHEWABLE 2 CHEWS ORALLY DAILY TAKING VITAMIN C ADULT GUMMIES 125 MG TABLET CHEWABLE DIRECTED ORALLY TAKING ONETOUCH LANCETS ONE TOUCH LANCETS FINGERSTICKS ULTRA DAILY TAKING CPAP MASK AND SUPPLIES ----- ------ ----- DIRECTED TAKING GLUCOSTIX TAKING ONE TOUCH ULTRA SYSTEM KIT ONE TOUCH METER DIRECTED E11.9 TAKING FAMOTIDINE 20 MG TABLET 1 TAB ORALLY BID TAKING ONETOUCH ULTRA BLUE - STRIP DIRECTED IN [id number] TAKING JANUVIA 25 MG TABLET 1 TAB ORALLY DAILY TAKING BYSTOLIC 2.5 MG TABLET 1 TABLET ORALLY EVERY MORNING TAKING ONE TOUCH ULTRA TEST STRIPS STRIPS 1 STRIP _ DAILY TAKING ISOSORBIDE DINITRATE 10 TABLET 1 TABLET ORALLY TWICE A DAY TAKING SPIRONOLACTONE 25 MG TABLET ONE HALF TAB ORALLY DAILY NOT-TAKING BISOPROLOL FUMARATE 5 MG TABLET 1 TABLET ORALLY BID NOT-TAKING IRBESARTAN 75 MG TABLET 1/2 TABLET ORALLY ONCE A DAY MEDICATION LIST REVIEWED AND RECONCILED WITH THE PATIENT PAST MEDICAL HISTORY DM CAD, GOUT HYPOTHYROID GERD SLEEP APNEA ASTHMA HTN ARANA WITH CIRRHOSIS MULTIFOCAL ATRIAL RHYTHM/TACHYCARDIA PROXIMAL JUNCTIONAL KYPNOSIS SPIROMETRY DONE LAST 06/14/2016 @ PULMONARY IN NOTE SELLAR ARACHNOID CYST 11/2016 RIGHT CATARACT FIRST 1 WEEK LATER LEFT EYE DONE 01/2017 ENDOSCOPY AND COLONOSCOPY DONE BY DIABETES MELLITUS WITHOUT MENTION OF COMPLICATION, TYPE II OR UNSPECIFIED TYPE, NOT STATED UNCONTROLLED ALLERGIES IMITREX: HIGH BP SWEATS - CONTRAINDICATION PENICILLIN V POTASSIUM: ANAPHYLAXIS - ALLERGY ERYTHROMYCIN: N/V HEADACHE - SIDE EFFECTS CODEINE PHOSPHATE: NAUSEA/ STOMACH PAIN/HEADACHE - SIDE EFFECTS MORPHINE SULFATE: CONFUSION - CONTRAINDICATION CIPRO: MUSCLES LOCKING UP IN LEGS - CONTRAINDICATION BACTRIM DS: YUSUF, NAUSEA - SIDE EFFECTS IBUPROFEN: SWELLING - SIDE EFFECTS GABAPENTIN: SEIZURES,HTN - CONTRAINDICATION BACLOFEN: SEIZURES,HTN - CONTRAINDICATION SURGICAL HISTORY APPENDECTOMY 1941 TONSILECTOMY HYSTERECTOMY THYROIDECTOMY GALLBLADDER RIGHT SHOULDER SURGERY BACK SURGERY, MULTI-LEVEL FUSION 2010 TOTAL RIHGT HIP FATTY TUMOR ON LEFT ARM AND ONE ON NECK. TIGGER FINGER RIGHT INDEX FINGER. LEFT HIP REPLACEMENT OCT 22 2010 REMOVED 5 TUMORS AND BACK FUSION THEN HAD A LUMBAR LEAKAGE AND RETURNED TO SURGERY FOR REPAIR OF LEAK Feb TOTAL LEFT KNEE 06/20-07/10/14 BACK SURGERY August CATARACT SURGERY 2016 FAMILY HISTORY FATHER: 79 YRS, UNKNOWN CAUSE, DIAGNOSED WITH HEART DISEASE MOTHER: 82 YRS, CVA, DIABETES, HEART DISEASE SIBLINGS: , SISTER 69 OF BREAST CA; BROTHER AGE 88, HISTORY OF PSYCH ISSUES, ALZHEIMERS SUSPECT, DIABETES, HEART DISEASE, CANCER 1DAUGHTER(S) . EXTENSIVE DIABETES HISTORY IN GRANDPARENTS 3 STEP CHILDERN. SOCIAL HISTORY GENERAL: TOBACCO USE ARE YOU A:NONSMOKER FORMER SMOKER QUIT 1972 ADDITIONAL FINDINGS: TOBACCO USER NO ADDITIONAL FINDINGS: TOBACCO NON-USERCURRENT NON-SMOKER VAPORNO E-CIGARETTENO LATEX QUESTIONNAIRE LATEX ALLERGY : HAVE YOU EVER DEVELOPED ANY TYPE OF REACTION AFTER HANDLING LATEX PRODUCTS SUCH RUBBER GLOVES, CONDOMS, DIAPHRAGMS, BALLOONS, SOCKS, OR UNDERWEAR?NO LATEX ALLERGY : HAVE YOU EVER DEVELOPED ANY TYPE OF REACTION DURING OR AFTER DENTAL APPOINTMENT, VAGINAL/RECTAL EXAMINATION, SURGICAL PROCEDURE, OR ANY OTHER EXPOSURE?NO LATEX RISK : HAVE YOU EVER HAD ANY DIFFICULTY BREATHING OR HIVES AFTER EATING OR HANDLING ANY FRUITS, OR VEGETABLES; SUCH KIWI, BANANAS, STONE FRUITS, OR CHESTNUTSNO LATEX RISK : DO YOU HAVE A PREVIOUS PERSONAL HISTORY OF MORE THAN NINE SURGERIES, SPINA BIFIDA, OR REPEATED CATHERTIZATIONS? NO LATEX RISK : ARE YOU FREQUENTLY EXPOSED TO LATEX PRODUCTS IN YOUR OCCUPATION?NO DATE ASKED : 06/09/2018 LUNG CANCER SCREENING SMOKING STATUS:FORMER SMOKER IS THE PATIENT BETWEEN THE AGE OF 55 AND 77?YES HAVE YOU QUIT SMOKING WITHIN THE PAST 15 YEARS?NO BMI CARE GOAL FOLLOW-UP ABOVE NORMAL BMI FOLLOW-UPDIETARY MANAGEMENT EDUCATION, GUIDANCE, AND COUNSELING ALCOHOL SCREENING POINTS: 0, INTERPRETATION: NEGATIVE. RECREATIONAL DRUG USE DRUG USE?NO CAFFEINE NONE. SEXUAL HX HAD SEX IN THE LAST 12 MONTHS (VAGINAL, ORAL, OR ANAL)?NO HAVE YOU EVER HAD AN STD?NO HIV / HEP-C SCREENING HIV TEST OFFERED TO PATIENT:NO NOT HEP-C TEST OFFERED TO PATIENT:NO BORN 1940 SCIENTOLOGIST NO RASTAFARIAN BELIEFS THAT WOULD IMPACT HEALTH CARE. LANGUAGE CYMRO. 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 DIET: NO CONCENTRATED SWEETS., LOW FAT, LOW CHOLESTEROL. EXERCISE: NO REGULAR EXERCISE. MARITAL STATUS: . OTHERS AT HOME: SPOUSE. PAIN CLINIC PFS, CLERGY, PUBLIC HEALTH REFERRALS HAS THE PATIENT BEEN EDUCATED REGARDING HIS/HER PLAN OF CARE?YES HAS THE PATIENT BEEN EDUCATED REGARDING PAIN, THE RISK FOR PAIN, THE IMPORTANCE OF EFFECTIVE PAIN MANAGEMENT, AND THE PAIN ASSESSMENT PROCESS?YES HOUSING: OWNS HOME. ADVANCE DIRECTIVE ADVANCE DIRECTIVE DISCUSSED WITH PATIENT: PT DECLINES HCP INFO AND ASSISTANCE. 06/09/18 BV REVIEWED WITH PATIENT 06/09/18 1021 BV. HOSPITALIZATION/MAJOR DIAGNOSTIC PROCEDURE SURGERY OCT 22 2010 [facility] CEREBROSPINAL FLUID LEAK AND HEADACHE AFTER CT MYELOGRAM Dec -Dec TOTAL LEFT KNEE AND DVT SECONDARY TO SURGERY 06/20-07/10/14 AFIB,AFLUTTER, TACHYCARDIA 06/2014 ADMITTED FOR BACK SURGERY August CONGESTIVE HEART FAILURE 05/2018 REVIEW OF SYSTEMS REVIEWED BY: PROVIDER: JOSIANE TOMAS . CONSTITUTIONAL: ANY CHANGE IN YOUR MEDICAL CONDITION? NO . CHILLS NO . FEVER NO . INFECTION: DO YOU HAVE NEW INFECTIONS? NO . DO YOU HAVE HISTORY OF MRSA? NO . MUSCULOSKELETAL: ANY NEW PATTERNS OF PAIN OR NUMBNESS? NO . SYTEMIC LUPUS NO . GASTROENTEROLOGY: ANY NEW CHANGE IN BOWEL CONTROL? NO . BARRETTS ESOPHAGUS NO . CIRRHOSIS YES, DIAGNOSED 6 YEARS AGO NON-ALCOHOLIC CIRRHOSIS . HEPATITIS NO . LIVER FAILURE NO . ACID REFLUX NO . UNEXPLAINED WEIGHT LOSS NO . GENITOURINARY: ANY NEW CHANGE IN BLADDER CONTROL? NO . IS THERE A CHANCE YOU COULD BE ? NO . HEMATOLOGY/LYMPH: DO YOU TAKE ANY BLOOD THINNERS? (FOR EXAMPLE- COUMADIN, PLAVIX, AGGRENOX, PLATEL, PRADAXA, OR XARELTO) NO . WHEN WAS YOUR LAST DOSE? DATE: TIME: . LOW PLATELET COUNT NO . SICKLE CELL DISEASE NO . VON WILLIEBRANDS NO . FACTOR V LEIDEN NO . THALLASEMIA NO . ANEMIA NO . EASY BRUISING NO . NEUROLOGY: HAVE YOU FALLEN IN THE PAST 12 MONTHS? YES, PT HAD A FALL IN SEPTEMBER 2017, HAD A FALL DOWN A STEP AND FELL BACK ONTO RIGHT SIDE. DENIES ANY INJURIES OR ED VISIT. . ANY NEW EXTREMITY NUMBNESS OR WEAKNESS? NO . HEAD INJURY NO . DEMENTIA NO . CEREBRAL PALSY NO . MULTIPLE SCLEROSIS NO . DIZZINESS NO, LASTING FEW SECONDS, INTERMITTENT, WHILE GETTING UP FROM SITTING POSITION . HEADACHE NO . STROKES NO . VERTIGO NO . CARDIOLOGY: DO YOU HAVE A PACEMAKER OR DEFIBRILLATOR? NO . ANGINA NO . HEART ATTACK NO . HEART SURGERY NO . CONGESTIVE HEART FAILURE/FLUID OVERLOAD YES, DIAGNOSED WITH CONGESTIVE HEART FAILURE LAST WEEK. . CHEST PAIN NO . HIGH BLOOD PRESSURE ON MEDICATION(S) . IRREGULAR HEART BEAT DIAGNOSED WITH A-FIB ABOUT 3 YEARS AGO . RESPIRATORY: HAVE YOU BEEN SICK IN THE PAST WEEK? NO . FEVER NO . FLU LIKE SYMPTOMS? NO . CPAP YES . BYPAP NO . ASTHMA YES SINCE CHILDHOOD . EMPHYSEMA NO . CHRONIC LUNG DISEASES YES, COPD . SHORTNESS OF BREATH ON EXERTION NO . COUGH NO . SNORING NO . INTEGUMENTARY: DO YOU HAVE ANY RASHES OR OPEN SORES? YES, SMALL BURN TO RIGHT THUMB . ALLERGIC/IMMUNO: ARE YOU ALLERGIC TO IV DYE? NO . ANY NEW ALLERGIES? NO . PSYCHIATRIC: DO YOU HAVE THOUGHTS OF HURTING YOURSELF OR SOMEONE ELSE? NO . ARE YOU ABUSED, NEGLECTED, OR IN AN UNSAFE ENVIRONMENT? NO . ENDOCRINOLOGY: ARE YOU DIABETIC? YES, ON MEDICATION . THYROID DISORDER YES, THYROIDECTOMY, ON LEVOTHYROXINE . OTHER: DO YOU NEED ANY PRESCRIPTIONS? NO . IF YES, PLEASE LIST: ____ . ANY NEW PROBLEMS WITH YOUR MEDICATIONS? NO . WHEN DID YOU LAST EAT? ____ . WHEN DID YOU LAST DRINK? ____ . WHAT DID YOU LAST DRINK? ____ . NAME OF PERSON DRIVING YOU HOME? ____ . DO YOU HAVE ANY OTHER QUESTIONS OR CONCERNS NO . VITAL SIGNS WT 233 LBS, HT 64.5 IN, BMI 39.37 INDEX, BP 140/50 MANUAL, HR 74 /MIN, RR 18 /MIN, TEMP 97.4 F, OXYGEN SAT % 98%, NA INITIALS AW 1003, REVIEWED BY: BV. EXAMINATION GENERAL EXAMINATION: GENERAL APPEARANCE: AWAKE,ALERT ,PLEAASANT . PSYCH AFFECT NORMAL . NECK: TRACHEA MIDLINE. NO CERVICAL OR SUPRACLAVICULAR LYMPHADENOPATHY NOTED. LUNGS: LUNG WILKERSON ARE CLEAR TO AUSCULTATION BILATERALLY. GOOD MOVEMENT OF AIR . HEART: S1, S2 IN A REGULAR RATE AND RHYTHM. NO SIGNIFICANT MURMURS, RUBS OR GALLOPS NOTED . ABDOMEN: SOFT/NONTENDER, OBESE. MUSCULOSKELETAL: MUSCLE STRENGTH TESTING -WEAK OVER LEFT ARM EQUAL STRONG MAGNETIC RESONANCE IMAGING COORDINATOR STRENGTH BILAT.HANDS. CERVICALNEGATIVE FOR PAIN WITH PALPATION OF CERVICAL SPINE. NEGATIVE FOR PAIN WITH PALPATION OF CERVICAL PARASPINALS. NEGATIVE FOR PAIN WITH PALPATION OF TRAPEZIUS BILAT.SPECIFIC POINT TENDERNESS OVER LEFT SCAPULA.. SKIN: NO RASH OR SKIN LESIONS. NEUROLOGIC EXAM: CN'S NORMAL TESTED , DTRS 1-2+ IN ALL 4 EXTREMITIES. DIAGNOSTIC TESTS REVIEWEDNCS-LEFT ARM-12/06/17 MRI-LEFT FOREARM-12/09/17 MRI-LEFT HUMERUS-12/09/17. SHOULDER / UPPER ARM: SHOULDER: LEFT. INSPECTION: UNREMARKABLE. RANGE OF MOTION: LIMITED RANGE OF MOTION SECONDARY TO PAIN , ABDUCTION-LESS THAN 45 DEGREES WITH REPORTS OF SEVERE PAIN. PALPATION: DIFFUSE TENDERNESS, ANTERIOR AND POSTERIOR. ASSESSMENTS PAIN OF LEFT SHOULDER REGION - M25.512 (PRIMARY) CERVICAL RADICULOPATHY - M54.12 TREATMENT PAIN OF LEFT SHOULDER REGION MRI : SHOULDER, [id number] MRI : [id number] OTHERS NOTES: FAX # [facility] [phone]. PROCEDURE CODES FA211 ESTABILISHED PATIENT [facility] CHARGE DISPOSITION & COMMUNICATION FOLLOW UP 3 WEEKS (REASON: SIGN RECORDS RELEASE) ELECTRONICALLY SIGNED BY THOM SEAY ON 06/09/2018 AT 12:47 PM EDT DISCLAIMER : THIS IS A VISIT SUMMARY EXTRACTED FROM THE [employer] CHART. IT IS NOT A COPY OF THE [employer] PROGRESS NOTE. NARDA
== END ==
LOC: M PAIN 10:15
PROVIDERS: ATTEND Nurse Practitioner Family
DX: M25.512 Pain in left shoulder (principal); M54.12 Radiculopathy, cervical region; G89.29 Other chronic pain; E11.9 Type 2 diabetes mellitus without complications; I25.10 Atherosclerotic heart disease of native coronary artery without angina pectoris; Z86.79 Personal history of other diseases of the circulatory system; E03.9 Hypothyroidism, unspecified; G47.30 Sleep apnea, unspecified; J44.9 Chronic obstructive pulmonary disease, unspecified; I11.0 Hypertensive heart disease with heart failure; Z96.641 Presence of right artificial hip joint; Z96.642 Presence of left artificial hip joint; Z96.652 Presence of left artificial knee joint; Z87.891 Personal history of nicotine dependence; Z88.0 Allergy status to penicillin; Z88.1 Allergy status to other antibiotic agents; Z88.8 Allergy status to other drugs, medicaments and biological substances; Z88.5 Allergy status to narcotic agent; Z88.6 Allergy status to analgesic agent; K75.81 Nonalcoholic steatohepatitis (NASH); I50.9 Heart failure, unspecified; I48.92 Unspecified atrial flutter; Z79.84 Long term (current) use of oral hypoglycemic drugs; Z79.899 Other long term (current) drug therapy

== ENCOUNTER → 2018-06-22 | Outpatient (REF) | payer MEDICARE, BC ==
[2018-06-22 19:22] LABS: ALBUMIN 4.4 GM/DL (3.2-5.2); CALCIUM LEVEL 9.9 MG/DL (8.8-10.2); CREATININE FOR GFR 2.31 MG/DL (0.55-1.30); GLOMERULAR FILTRATION RATE 21.7 (>39); PHOSPHORUS LEVEL 3.7 MG/DL (2.5-4.9)
== END ==
LOC: M LABDRWCV 17:34
PROVIDERS: ATTEND Physician Assistant
DX: I50.32 Chronic diastolic (congestive) heart failure (principal)

== ENCOUNTER → 2018-07-07 | Outpatient (CLI) | payer MEDICARE, BC ==
--- NOTE | 2018-07-29 00:58 | ECWPNPC ---
PATIENT NAME: CINDI LYLES : 1940 GENDER: FEMALE VISIT DATE: 07/07/2018 DISCHARGE DATE: 07/07/18 1047 VISIT LOCKED DATE TIME: PHYSICIAN: JOSIANE KAY PHYSICIAN PAGER NO: [phone] RESOURCE: JOSIANE KAY REASON FOR APPOINTMENT 1. LEFT SHOULDER/ARM HISTORY OF PRESENT ILLNESS HISTORY OF PRESENT ILLNESS: HERE FOR F/U OF CHRONIC NECK AND LEFT ARM PAIN.REVIEWED MRI C SPINE.RATING PAIN VAS 7/10.FOLLOWS CLOSELY WITH DR STAFFORD FOR NEW DIAGNOSIS OF CHF.HALTER MONITOR IS SCHEDULED NEXT WEEK.DISCUSSED RENETTA. PAIN THE PATIENT DESCRIBES THE PAIN... FALL RISK SCREENING: SCREENING :NO FALLS REPORTED IN THE LAST YEAR CURRENT MEDICATIONS TAKING LEVOTHYROXINE SODIUM 150 MCG TABLET 1 TABLET ON AN EMPTY STOMACH IN THE MORNING ORALLY ONCE A DAY TAKING ADVAIR DISKUS 250-50 MCG/DOSE AEROSOL POWDER BREATH ACTIVATED 1 PUFF INHALATION TWICE A DAY TAKING TORSEMIDE 20 MG TABLET 1 TAB ONCE DAILY ORALLY 90 DAYS TAKING ALLOPURINOL 100MG TABLET 1 TAB(S) ORALLY ONCE DAILY TAKING HYDROXYCHLOROQUINE SULFATE 200 MG TABLET 1 TABLETS WITH FOOD OR MILK ORALLY DAILY TAKING CALCITRIOL 0.25 MCG CAPSULE 1 CAPSULE ORALLY ONCE A DAY TAKING GLIMEPIRIDE 4 MG TABLET ONE HALF TAB ORALLY BID TAKING MULTI ADULT GUMMIES 1 TABLET CHEWABLE 2 CHEWS ORALLY DAILY TAKING VITAMIN C ADULT GUMMIES 125 MG TABLET CHEWABLE DIRECTED ORALLY TAKING ONETOUCH LANCETS ONE TOUCH LANCETS FINGERSTICKS ULTRA DAILY TAKING CPAP MASK AND SUPPLIES ----- ------ ----- DIRECTED TAKING GLUCOSTIX TAKING ONE TOUCH ULTRA SYSTEM KIT ONE TOUCH METER DIRECTED E11.9 TAKING FAMOTIDINE 20 MG TABLET 1 TAB ORALLY BID TAKING ONETOUCH ULTRA BLUE - STRIP DIRECTED IN [id number] TAKING JANUVIA 25 MG TABLET 1 TAB ORALLY DAILY TAKING BYSTOLIC 2.5 MG TABLET 1 TABLET ORALLY EVERY MORNING TAKING ONE TOUCH ULTRA TEST STRIPS STRIPS 1 STRIP _ DAILY TAKING ISOSORBIDE DINITRATE 10 TABLET 1 TABLET ORALLY TWICE A DAY TAKING SPIRONOLACTONE 25 MG TABLET ONE HALF TAB ORALLY DAILY TAKING HYDROXYCHLOROQUINE SULFATE 200 TABLET 1 TABLETS WITH FOOD OR MILK ORALLY DAILY NOT-TAKING BISOPROLOL FUMARATE 5 MG TABLET 1 TABLET ORALLY BID NOT-TAKING IRBESARTAN 75 MG TABLET 1/2 TABLET ORALLY ONCE A DAY MEDICATION LIST REVIEWED AND RECONCILED WITH THE PATIENT PAST MEDICAL HISTORY DM CAD, GOUT HYPOTHYROID GERD SLEEP APNEA ASTHMA HTN ARANA WITH CIRRHOSIS MULTIFOCAL ATRIAL RHYTHM/TACHYCARDIA PROXIMAL JUNCTIONAL KYPNOSIS SPIROMETRY DONE LAST 06/14/2016 @ PULMONARY IN NOTE SELLAR ARACHNOID CYST 11/2016 RIGHT CATARACT FIRST 1 WEEK LATER LEFT EYE DONE 01/2017 ENDOSCOPY AND COLONOSCOPY DONE BY DIABETES MELLITUS WITHOUT MENTION OF COMPLICATION, TYPE II OR UNSPECIFIED TYPE, NOT STATED UNCONTROLLED ALLERGIES IMITREX: HIGH BP SWEATS - CONTRAINDICATION PENICILLIN V POTASSIUM: ANAPHYLAXIS - ALLERGY ERYTHROMYCIN: N/V HEADACHE - SIDE EFFECTS CODEINE PHOSPHATE: NAUSEA/ STOMACH PAIN/HEADACHE - SIDE EFFECTS MORPHINE SULFATE: CONFUSION - CONTRAINDICATION CIPRO: MUSCLES LOCKING UP IN LEGS - CONTRAINDICATION BACTRIM DS: YUSUF, NAUSEA - SIDE EFFECTS IBUPROFEN: SWELLING - SIDE EFFECTS GABAPENTIN: SEIZURES,HTN - CONTRAINDICATION BACLOFEN: SEIZURES,HTN - CONTRAINDICATION SURGICAL HISTORY APPENDECTOMY 1941 TONSILECTOMY HYSTERECTOMY THYROIDECTOMY GALLBLADDER RIGHT SHOULDER SURGERY BACK SURGERY, MULTI-LEVEL FUSION 2010 TOTAL RIHGT HIP FATTY TUMOR ON LEFT ARM AND ONE ON NECK. TIGGER FINGER RIGHT INDEX FINGER. LEFT HIP REPLACEMENT OCT 22 2010 REMOVED 5 TUMORS AND BACK FUSION THEN HAD A LUMBAR LEAKAGE AND RETURNED TO SURGERY FOR REPAIR OF LEAK Feb TOTAL LEFT KNEE 06/20-07/10/14 BACK SURGERY August CATARACT SURGERY 2016 FAMILY HISTORY FATHER: 79 YRS, UNKNOWN CAUSE, DIAGNOSED WITH HEART DISEASE MOTHER: 82 YRS, CVA, DIABETES, HEART DISEASE SIBLINGS: , SISTER 69 OF BREAST CA; BROTHER AGE 88, HISTORY OF PSYCH ISSUES, ALZHEIMERS SUSPECT, DIABETES, HEART DISEASE, CANCER 1DAUGHTER(S) . EXTENSIVE DIABETES HISTORY IN GRANDPARENTS 3 STEP CHILDERN. SOCIAL HISTORY GENERAL: TOBACCO USE ARE YOU A:NONSMOKER FORMER SMOKER QUIT 1971 ADDITIONAL FINDINGS: TOBACCO USER NO ADDITIONAL FINDINGS: TOBACCO NON-USERCURRENT NON-SMOKER VAPORNO E-CIGARETTENO HIV / HEP-C SCREENING HIV TEST OFFERED TO PATIENT:NO NOT HEP-C TEST OFFERED TO PATIENT:NO BORN 1939 OTHERS AT HOME: SPOUSE. HOUSING: OWNS HOME. DIET: NO CONCENTRATED SWEETS., LOW FAT, LOW CHOLESTEROL. LANGUAGE ALBANIAN. DOMESTIC VIOLENCE NONE. BMI CARE GOAL FOLLOW-UP ABOVE NORMAL BMI FOLLOW-UPDIETARY MANAGEMENT EDUCATION, GUIDANCE, AND COUNSELING RECREATIONAL DRUG USE DRUG USE?NO EXERCISE: NO REGULAR EXERCISE. 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 ASSISTANT NEEDED?NO LUNG CANCER SCREENING SMOKING STATUS:FORMER SMOKER IS THE PATIENT BETWEEN THE AGE OF 55 AND 77?YES HAVE YOU QUIT SMOKING WITHIN THE PAST 15 YEARS?NO PAIN CLINIC PFS, CLERGY, PUBLIC HEALTH REFERRALS HAS THE PATIENT BEEN EDUCATED REGARDING HIS/HER PLAN OF CARE?YES HAS THE PATIENT BEEN EDUCATED REGARDING PAIN, THE RISK FOR PAIN, THE IMPORTANCE OF EFFECTIVE PAIN MANAGEMENT, AND THE PAIN ASSESSMENT PROCESS?YES LATEX QUESTIONNAIRE LATEX ALLERGY : HAVE YOU EVER DEVELOPED ANY TYPE OF REACTION AFTER HANDLING LATEX PRODUCTS SUCH RUBBER GLOVES, CONDOMS, DIAPHRAGMS, BALLOONS, SOCKS, OR UNDERWEAR?NO LATEX ALLERGY : HAVE YOU EVER DEVELOPED ANY TYPE OF REACTION DURING OR AFTER DENTAL APPOINTMENT, VAGINAL/RECTAL EXAMINATION, SURGICAL PROCEDURE, OR ANY OTHER EXPOSURE?NO DATE ASKED : 06/09/2018 LATEX RISK : HAVE YOU EVER HAD ANY DIFFICULTY BREATHING OR HIVES AFTER EATING OR HANDLING ANY FRUITS, OR VEGETABLES; SUCH KIWI, BANANAS, STONE FRUITS, OR CHESTNUTSNO LATEX RISK : DO YOU HAVE A PREVIOUS PERSONAL HISTORY OF MORE THAN NINE SURGERIES, SPINA BIFIDA, OR REPEATED CATHERTIZATIONS? NO LATEX RISK : ARE YOU FREQUENTLY EXPOSED TO LATEX PRODUCTS IN YOUR OCCUPATION?NO CAFFEINE NONE. ADVANCE DIRECTIVE ADVANCE DIRECTIVE DISCUSSED WITH PATIENT: PT DECLINES HCP INFO AND ASSISTANCE. ALEVISM NO MORAVIAN BELIEFS THAT WOULD IMPACT HEALTH CARE. MARITAL STATUS: . ALCOHOL SCREENING POINTS: 0, INTERPRETATION: NEGATIVE. SEXUAL HX HAD SEX IN THE LAST 12 MONTHS (VAGINAL, ORAL, OR ANAL)?NO HAVE YOU EVER HAD AN STD?NO REVIEWED WITH PATIENT 06/09/18 1021 BVREVIEWED WITH PATIENT 07/07/18 1015 JOCELIN. HOSPITALIZATION/MAJOR DIAGNOSTIC PROCEDURE SURGERY OCT 22 2010 [facility] CEREBROSPINAL FLUID LEAK AND HEADACHE AFTER CT MYELOGRAM Dec -Dec TOTAL LEFT KNEE AND DVT SECONDARY TO SURGERY 06/20-07/10/14 AFIB,AFLUTTER, TACHYCARDIA 06/2014 ADMITTED FOR BACK SURGERY August CONGESTIVE HEART FAILURE 05/2018 REVIEW OF SYSTEMS REVIEWED BY: PROVIDER: JOSIANE TOMAS . CONSTITUTIONAL: ANY CHANGE IN YOUR MEDICAL CONDITION? NO . CHILLS NO . FEVER NO . INFECTION: DO YOU HAVE NEW INFECTIONS? NO . DO YOU HAVE HISTORY OF MRSA? NO . MUSCULOSKELETAL: ANY NEW PATTERNS OF PAIN OR NUMBNESS? YES, STATES PAIN WORSENING . GASTROENTEROLOGY: ANY NEW CHANGE IN BOWEL CONTROL? NO . GENITOURINARY: ANY NEW CHANGE IN BLADDER CONTROL? NO . IS THERE A CHANCE YOU COULD BE ? NO . HEMATOLOGY/LYMPH: DO YOU TAKE ANY BLOOD THINNERS? (FOR EXAMPLE- COUMADIN, PLAVIX, AGGRENOX, PLATEL, PRADAXA, OR XARELTO) NO . WHEN WAS YOUR LAST DOSE? DATE: TIME: . NEUROLOGY: HAVE YOU FALLEN IN THE PAST 12 MONTHS? YES, STATES FALL LAST SEPTEMBER, DISCUSSED AT PREVIOUS VISIT . ANY NEW EXTREMITY NUMBNESS OR WEAKNESS? NO . CARDIOLOGY: DO YOU HAVE A PACEMAKER OR DEFIBRILLATOR? NO . RESPIRATORY: HAVE YOU BEEN SICK IN THE PAST WEEK? NO . FEVER NO . FLU LIKE SYMPTOMS? NO . COUGH NO . INTEGUMENTARY: DO YOU HAVE ANY RASHES OR OPEN SORES? NO . ALLERGIC/IMMUNO: ARE YOU ALLERGIC TO IV DYE? NO . ANY NEW ALLERGIES? NO . PSYCHIATRIC: DO YOU HAVE THOUGHTS OF HURTING YOURSELF OR SOMEONE ELSE? NO . ARE YOU ABUSED, NEGLECTED, OR IN AN UNSAFE ENVIRONMENT? NO . ENDOCRINOLOGY: ARE YOU DIABETIC? YES . OTHER: DO YOU NEED ANY PRESCRIPTIONS? NO . IF YES, PLEASE LIST: ____ . ANY NEW PROBLEMS WITH YOUR MEDICATIONS? NO . WHEN DID YOU LAST EAT? ____ . WHEN DID YOU LAST DRINK? ____ . WHAT DID YOU LAST DRINK? ____ . NAME OF PERSON DRIVING YOU HOME? ____ . DO YOU HAVE ANY OTHER QUESTIONS OR CONCERNS NO . VITAL SIGNS WT 226.8 LBS, HT 64.5 IN, BMI 38.32 INDEX, BP 120/70MANUAL, HR 80 /MIN, RR 18 /MIN, TEMP 97.0 F, OXYGEN SAT % 98%, SAFE IN ENV? (Y/N) YES, NA INITIALS SC 10:13, REVIEWED BY: JOCELIN. EXAMINATION GENERAL EXAMINATION: LUNGS: LUNG SOUNDS ARE CLEAR . HEART: HEART RATE REGULAR . MUSCULOSKELETAL:*, MUSCLE STRENGTH TESTING 5/5 BILATERAL UPPER EXTREMITIES. . CERVICAL+ FOR PAIN WITH PALPATION OF CERVICAL SPINE. + FOR PAIN WITH PALPATION OF CERVICAL PARASPINALS. . 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 PROCEDURE CODES FA211 ESTABILISHED PATIENT [facility] CHARGE DISPOSITION & COMMUNICATION FOLLOW UP POST (REASON: C5/6 RENETTA PENDING CARDIOLOGY CLEARANCE) ELECTRONICALLY SIGNED BY THOM SEAY ON 07/26/2018 AT 04:52 PM EDT DISCLAIMER : THIS IS A VISIT SUMMARY EXTRACTED FROM THE [employer] CHART. IT IS NOT A COPY OF THE [employer] PROGRESS NOTE. NARDA
== END ==
LOC: M PAIN 09:45
PROVIDERS: ATTEND Nurse Practitioner Family
DX: M50.20 Other cervical disc displacement, unspecified cervical region (principal); M54.12 Radiculopathy, cervical region; G89.29 Other chronic pain; E11.9 Type 2 diabetes mellitus without complications; E03.9 Hypothyroidism, unspecified; G47.30 Sleep apnea, unspecified; J45.909 Unspecified asthma, uncomplicated; I10 Essential (primary) hypertension; Z96.652 Presence of left artificial knee joint; Z87.891 Personal history of nicotine dependence; Z88.0 Allergy status to penicillin; Z88.1 Allergy status to other antibiotic agents; Z88.5 Allergy status to narcotic agent; Z88.6 Allergy status to analgesic agent; Z88.8 Allergy status to other drugs, medicaments and biological substances; Z79.84 Long term (current) use of oral hypoglycemic drugs; Z79.899 Other long term (current) drug therapy

== ENCOUNTER → 2018-08-16 | Outpatient (CLI) | payer MEDICARE, BC ==
[~2018-08-16] MED LIST changes: +ISOVUE-M 300 61% 15ML VIAL (Q9967) As Ordered ONE; +LIDOCAINE 1% SDV INJ 30 ML VIAL As Ordered ONE; +diazePAM 5 MG TAB As Ordered ONE; +methylPREDNISolone SUSP 40 MG/ML (DEPO-medrol) VIAL (J1030) As Ordered ONE
--- NOTE | 2018-08-16 19:03 | REP ---
Cervical spine series: Limited study three views. History: Cervical epidural steroid injection for pain. 6 seconds of fluoroscopy time is reported. Findings: A sequence of three last image hold fluoroscopically obtained spot radiographs of the cervicothoracic junction document needle position and contrast injection associated with cervical epidural injection procedure. Electronically Signed by Lucien Lema MD 08/17/2018 10:06 A
--- NOTE | 2018-08-28 00:45 | ECWPNPC ---
PATIENT NAME: CINDI LYLES : 1940 GENDER: FEMALE VISIT DATE: 08/16/2018 DISCHARGE DATE: 08/16/18 1550 VISIT LOCKED DATE TIME: PHYSICIAN: GANESH ALAMO MD PHYSICIAN PAGER NO: [phone] RESOURCE: GANESH ALAMO MD REASON FOR APPOINTMENT 1. RENETTA HISTORY OF PRESENT ILLNESS HISTORY OF PRESENT ILLNESS: PAIN THE PATIENT DESCRIBES THE PAIN... FALL RISK SCREENING: SCREENING :NO FALLS REPORTED IN THE LAST YEAR CURRENT MEDICATIONS TAKING LEVOTHYROXINE SODIUM 150 MCG TABLET 1 TABLET ON AN EMPTY STOMACH IN THE MORNING ORALLY ONCE A DAY, NOTES: 08-16-18799 TAKING ADVAIR DISKUS 250-50 MCG/DOSE AEROSOL POWDER BREATH ACTIVATED 1 PUFF INHALATION TWICE A DAY, NOTES: 08-15-182199 TAKING TORSEMIDE 20 MG TABLET 1 TAB ONCE DAILY ORALLY 90 DAYS , NOTES: 08-15-18899 TAKING ALLOPURINOL 100MG TABLET 1 TAB(S) ORALLY ONCE DAILY, NOTES: 08-16-18799 TAKING HYDROXYCHLOROQUINE SULFATE 200 MG TABLET 1 TABLETS WITH FOOD OR MILK ORALLY DAILY, NOTES: 08-13-18 TAKING CALCITRIOL 0.25 MCG CAPSULE 1 CAPSULE ORALLY ONCE A DAY, NOTES: 08-16-18799 TAKING GLIMEPIRIDE 4 MG TABLET ONE HALF TAB ORALLY BID, NOTES: 08-15-182099 TAKING MULTI ADULT GUMMIES 1 TABLET CHEWABLE 2 CHEWS ORALLY DAILY, NOTES: 08-15-181999 TAKING VITAMIN C ADULT GUMMIES 125 MG TABLET CHEWABLE DIRECTED ORALLY , NOTES: 08-15-18899 TAKING ONETOUCH LANCETS ONE TOUCH LANCETS FINGERSTICKS ULTRA DAILY TAKING CPAP MASK AND SUPPLIES ----- ------ ----- DIRECTED TAKING GLUCOSTIX TAKING ONE TOUCH ULTRA SYSTEM KIT ONE TOUCH METER DIRECTED E11.9 TAKING FAMOTIDINE 20 MG TABLET 1 TAB ORALLY BID, NOTES: 08-16-18799 TAKING ONETOUCH ULTRA BLUE - STRIP DIRECTED IN [id number] TAKING JANUVIA 25 MG TABLET 1 TAB ORALLY DAILY, NOTES: 08-15-18899 TAKING BYSTOLIC 2.5 MG TABLET 1 TABLET ORALLY EVERY MORNING, NOTES: 08-16-18799 TAKING ONE TOUCH ULTRA TEST STRIPS STRIPS 1 STRIP _ DAILY TAKING ISOSORBIDE DINITRATE 10 TABLET 1 TABLET ORALLY TWICE A DAY, NOTES: 08-16-18 0800 NOT-TAKING SPIRONOLACTONE 25 MG TABLET ONE HALF TAB ORALLY DAILY NOT-TAKING HYDROXYCHLOROQUINE SULFATE 200 TABLET 1 TABLETS WITH FOOD OR MILK ORALLY DAILY NOT-TAKING BISOPROLOL FUMARATE 5 MG TABLET 1 TABLET ORALLY BID NOT-TAKING IRBESARTAN 75 MG TABLET 1/2 TABLET ORALLY ONCE A DAY MEDICATION LIST REVIEWED AND RECONCILED WITH THE PATIENT PAST MEDICAL HISTORY DM CAD, GOUT HYPOTHYROID GERD SLEEP APNEA ASTHMA HTN ARANA WITH CIRRHOSIS MULTIFOCAL ATRIAL RHYTHM/TACHYCARDIA PROXIMAL JUNCTIONAL KYPNOSIS SPIROMETRY DONE LAST 06/14/2016 @ PULMONARY IN NOTE SELLAR ARACHNOID CYST 11/2016 RIGHT CATARACT FIRST 1 WEEK LATER LEFT EYE DONE 01/2017 ENDOSCOPY AND COLONOSCOPY DONE BY DIABETES MELLITUS WITHOUT MENTION OF COMPLICATION, TYPE II OR UNSPECIFIED TYPE, NOT STATED UNCONTROLLED CONGESTIVE HEART FAILURE SCLERODERMA SPINAL STENOSIS DVT RIGHT ARM AFTER PICC 2014 ATRIAL FIBRILLATION ALLERGIES IMITREX: HIGH BP SWEATS - CONTRAINDICATION PENICILLIN V POTASSIUM: ANAPHYLAXIS - ALLERGY ERYTHROMYCIN: N/V HEADACHE - SIDE EFFECTS CODEINE PHOSPHATE: NAUSEA/ STOMACH PAIN/HEADACHE - SIDE EFFECTS MORPHINE SULFATE: CONFUSION - CONTRAINDICATION CIPRO: MUSCLES LOCKING UP IN LEGS - CONTRAINDICATION BACTRIM DS: YUSUF, NAUSEA - SIDE EFFECTS IBUPROFEN: SWELLING - SIDE EFFECTS GABAPENTIN: SEIZURES,HTN - CONTRAINDICATION BACLOFEN: SEIZURES,HTN - CONTRAINDICATION SURGICAL HISTORY APPENDECTOMY 194 TONSILECTOMY HYSTERECTOMY THYROIDECTOMY GALLBLADDER RIGHT SHOULDER SURGERY BACK SURGERY, MULTI-LEVEL FUSION 2010 TOTAL RIHGT HIP FATTY TUMOR ON LEFT ARM AND ONE ON NECK. TIGGER FINGER RIGHT INDEX FINGER. LEFT HIP REPLACEMENT OCT 22 2010 REMOVED 5 TUMORS AND BACK FUSION THEN HAD A LUMBAR LEAKAGE AND RETURNED TO SURGERY FOR REPAIR OF LEAK Feb TOTAL LEFT KNEE 06/20-07/10/14 BACK SURGERY August CATARACT SURGERY 2016 FAMILY HISTORY FATHER: 79 YRS, UNKNOWN CAUSE, DIAGNOSED WITH HEART DISEASE MOTHER: 82 YRS, CVA, DIABETES, HEART DISEASE SIBLINGS: , SISTER 69 OF BREAST CA; BROTHER AGE 88, HISTORY OF PSYCH ISSUES, ALZHEIMERS SUSPECT, DIABETES, HEART DISEASE, CANCER 1DAUGHTER(S) . EXTENSIVE DIABETES HISTORY IN GRANDPARENTS 3 STEP CHILDERN. SOCIAL HISTORY GENERAL: TOBACCO USE ARE YOU A:NONSMOKER FORMER SMOKER QUIT 1971 ADDITIONAL FINDINGS: TOBACCO USER NO ADDITIONAL FINDINGS: TOBACCO NON-USERCURRENT NON-SMOKER VAPORNO E-CIGARETTENO HIV / HEP-C SCREENING HIV TEST OFFERED TO PATIENT:NO NOT 13 HEP-C TEST OFFERED TO PATIENT:NO BORN 1940 OTHERS AT HOME: SPOUSE. HOUSING: OWNS HOME. DIET: NO CONCENTRATED SWEETS., LOW FAT, LOW CHOLESTEROL. LANGUAGE K[place]. DOMESTIC VIOLENCE NONE. BMI CARE GOAL FOLLOW-UP ABOVE NORMAL BMI FOLLOW-UPDIETARY MANAGEMENT EDUCATION, GUIDANCE, AND COUNSELING RECREATIONAL DRUG USE DRUG USE?NO EXERCISE: NO REGULAR EXERCISE. LEARNING BARRIERS / SPECIAL NEEDS CHANGE FROM LAST VISIT?NO 02/10/2018 BARRIERS TO LEARNING?NO HEARING IMPAIRED?YES RIGHT EAR DEAF / LEFT EAR PARTIAL LOSS VISION IMPAIRED?NO COGNITIVELY IMPAIRED?NO :HEARING AIDES READINESS TO LEARN?YES LEARNING PREFERENCES?NO LEARNING CAPABILITIES PRESENT?YES EMOTIONAL BARRIERS?NO SPECIAL DEVICES?YES :CANE MEDICAL RESEARCH SCIENTIST NEEDED?NO LUNG CANCER SCREENING SMOKING STATUS:FORMER SMOKER IS THE PATIENT BETWEEN THE AGE OF 55 AND 77?YES HAVE YOU QUIT SMOKING WITHIN THE PAST 15 YEARS?NO PAIN CLINIC PFS, CLERGY, PUBLIC HEALTH REFERRALS HAS THE PATIENT BEEN EDUCATED REGARDING HIS/HER PLAN OF CARE?YES HAS THE PATIENT BEEN EDUCATED REGARDING PAIN, THE RISK FOR PAIN, THE IMPORTANCE OF EFFECTIVE PAIN MANAGEMENT, AND THE PAIN ASSESSMENT PROCESS?YES LATEX QUESTIONNAIRE LATEX ALLERGY : HAVE YOU EVER DEVELOPED ANY TYPE OF REACTION AFTER HANDLING LATEX PRODUCTS SUCH RUBBER GLOVES, CONDOMS, DIAPHRAGMS, BALLOONS, SOCKS, OR UNDERWEAR?NO LATEX ALLERGY : HAVE YOU EVER DEVELOPED ANY TYPE OF REACTION DURING OR AFTER DENTAL APPOINTMENT, VAGINAL/RECTAL EXAMINATION, SURGICAL PROCEDURE, OR ANY OTHER EXPOSURE?NO DATE ASKED : 06/09/2018 LATEX RISK : HAVE YOU EVER HAD ANY DIFFICULTY BREATHING OR HIVES AFTER EATING OR HANDLING ANY FRUITS, OR VEGETABLES; SUCH KIWI, BANANAS, STONE FRUITS, OR CHESTNUTSNO LATEX RISK : DO YOU HAVE A PREVIOUS PERSONAL HISTORY OF MORE THAN NINE SURGERIES, SPINA BIFIDA, OR REPEATED CATHERTIZATIONS? NO LATEX RISK : ARE YOU FREQUENTLY EXPOSED TO LATEX PRODUCTS IN YOUR OCCUPATION?NO CAFFEINE NONE. ADVANCE DIRECTIVE ADVANCE DIRECTIVE DISCUSSED WITH PATIENT: PT DECLINES HCP INFO AND ASSISTANCE. ORTHODOXY [id number] NONE NO TENRIISM BELIEFS THAT WOULD IMPACT HEALTH CARE. MARITAL STATUS: . ALCOHOL SCREENING POINTS: 0, INTERPRETATION: NEGATIVE. SEXUAL HX HAD SEX IN THE LAST 12 MONTHS (VAGINAL, ORAL, OR ANAL)?NO HAVE YOU EVER HAD AN STD?NO REVIEWED WITH PATIENT 4/12/19 1021 BVREVIEWED WITH PATIENT 07/07/18 1015 JS. HOSPITALIZATION/MAJOR DIAGNOSTIC PROCEDURE SURGERY OCT 22 2010 [facility] CEREBROSPINAL FLUID LEAK AND HEADACHE AFTER CT MYELOGRAM Dec -Dec TOTAL LEFT KNEE AND DVT SECONDARY TO SURGERY 06/20-07/10/14 AFIB,AFLUTTER, TACHYCARDIA 06/2014 ADMITTED FOR BACK SURGERY August CONGESTIVE HEART FAILURE 05/2018 REVIEW OF SYSTEMS REVIEWED BY: PROVIDER: . CONSTITUTIONAL: ANY CHANGE IN YOUR MEDICAL CONDITION? NO . CHILLS NO . FEVER NO . INFECTION: DO YOU HAVE NEW INFECTIONS? NO . DO YOU HAVE HISTORY OF MRSA? NO . MUSCULOSKELETAL: ANY NEW PATTERNS OF PAIN OR NUMBNESS? NO . GASTROENTEROLOGY: ANY NEW CHANGE IN BOWEL CONTROL? NO . GENITOURINARY: ANY NEW CHANGE IN BLADDER CONTROL? NO . IS THERE A CHANCE YOU COULD BE ? NO . HEMATOLOGY/LYMPH: DO YOU TAKE ANY BLOOD THINNERS? (FOR EXAMPLE- COUMADIN, PLAVIX, AGGRENOX, PLATEL, PRADAXA, OR XARELTO) NO . WHEN WAS YOUR LAST DOSE? DATE: TIME: . NEUROLOGY: HAVE YOU FALLEN IN THE PAST 12 MONTHS? YES . ANY NEW EXTREMITY NUMBNESS OR WEAKNESS? NO . CARDIOLOGY: DO YOU HAVE A PACEMAKER OR DEFIBRILLATOR? NO . RESPIRATORY: HAVE YOU BEEN SICK IN THE PAST WEEK? NO . FEVER NO . FLU LIKE SYMPTOMS? NO . COUGH NO . INTEGUMENTARY: DO YOU HAVE ANY RASHES OR OPEN SORES? NO . ALLERGIC/IMMUNO: ARE YOU ALLERGIC TO IV DYE? NO . ANY NEW ALLERGIES? NO . PSYCHIATRIC: DO YOU HAVE THOUGHTS OF HURTING YOURSELF OR SOMEONE ELSE? NO . ARE YOU ABUSED, NEGLECTED, OR IN AN UNSAFE ENVIRONMENT? NO . ENDOCRINOLOGY: ARE YOU DIABETIC? YES, FSBS 172 THIS AM . OTHER: DO YOU NEED ANY PRESCRIPTIONS? NO . IF YES, PLEASE LIST: ____ . ANY NEW PROBLEMS WITH YOUR MEDICATIONS? NO . WHEN DID YOU LAST EAT? 08-15-18 1800 . WHEN DID YOU LAST DRINK? 08-16-18 0800 . WHAT DID YOU LAST DRINK? WATER . NAME OF PERSON DRIVING YOU HOME? RENE LYLES . DO YOU HAVE ANY OTHER QUESTIONS OR CONCERNS NO . VITAL SIGNS WT 222.0 LBS, HT 64.5 IN, BMI 37.51 INDEX, BP 139/61 MM HG, HR 69 /MIN, RR 18 /MIN, TEMP 97.6 F, OXYGEN SAT % 98%, NA INITIALS AW 0957, REVIEWED BY: LS. ASSESSMENTS CERVICAL DISC DISORDER WITH RADICULOPATHY OF CERVICAL REGION - M50.10 (PRIMARY) CERVICAL SPINAL STENOSIS - M48.02 PROCEDURES PN CERVICAL EPIDURAL PRE PROCEDURE DIAGNOSIS CERVICAL DISC DISORDER WITH RADICULOPATHY , CERVICAL SPINAL STENOSIS POST PROCEDURE DIAGNOSIS CERVICAL DISC DISORDER WITH RADICULOPATHY , CERVICAL SPINAL STENOSIS PROCEDURE CERVICAL EPIDURAL STEROID INJECTION UNDER FLUOROSCOPIC GUIDANCE SURGEON DR. GANESH ALAMO CLASSIFICATION INSPECTOR NONE ANESTHESIA LOCAL PRE PROCEDURE NOTE THE PATIENT HAS A HISTORY OF CHRONIC CERVICAL PAIN. I EVALUATE THE PATIENT AND REVIEWED THE CHART. I WENT OVER THE RISKS, ALTERNATIVES, AND BENEFITS ASSOCIATED WITH THIS PROCEDURE. THE PATIENT WOULD LIKE TO PROCEED AND GIVE CONSENT TO PERFORMED THE PROCEDURE. THE PATIENT DENIES UNEXPLAINABLE WEIGHT LOSS, FEVER, CHILLS, OR NEW CHANGES IN URINARY OR BOWEL CONTROL DESCRIPTION OF PROCEDURE THE PATIENT WAS BROUGHT TO THE PROCEDURE ROOM AND PLACED IN THE PRONE POSITION. THE CERVICOTHORACIC AREA WAS CLEANED WITH BETADINE SOLUTION AND DRAPED ASEPTICALLY. THE PROCEDURE WAS DONE UNDER STERILE CONDITIONS. I CHECKED LATERALITY AND THE LEVEL WHERE THE PROCEDURE WAS GOING TO BE PERFORMED WITH THE PATIENT AND THE SUPPORTING STAFF AT THE MOMENT OF THE TIME OUT IN THE PROCEDURE ROOM. UNDER FLUOROSCOPIC GUIDANCE, THE TARGET WAS SELECTED AT THE INTERLAMINAR LEVEL OF C7-T1. LIDOCAINE WAS USED TO NUMB THE SKIN AND THE SUBCUTANEOUS TISSUE BELOW IT. EPIDURAL TUOHY NEEDLE 17-GAUGE WAS ADVANCED UNDER FLUOROSCOPIC GUIDANCE AND FOLLOWING PATIENT FEEDBACK UNTIL THE EPIDURAL SPACE WAS REACHED 6 CM DEEP INTO THE SKIN BY THE LOSS OF RESISTANCE TECHNIQUE. ISOVUE M DYE 30%, 0.25 ML, WAS INJECTED SHOWING ADEQUATE SPREAD OF THE DYE. THEN, A SOLUTION OF 3 ML OF NORMAL SALINE WITH DEPO-MEDROL 60 MG WAS INJECTED SLOWLY FOLLOWING PATIENT FEEDBACK. THERE WAS NO EVIDENCE OF BLOOD, PARESTHESIA OR CEREBROSPINAL FLUID DURING THE PROCEDURE. THE PATIENT WAS SENT TO THE RECOVERY ROOM. THE PATIENT WAS MOVING THE EXTREMITIES AND DOING WELL. THERE WAS NO COMPLICATION DURING THE PROCEDURE. FLUOROSCOPY TIME WAS 13 SECONDS POST PROCEDURE NOTE THE PATIENT WILL BE SEEN IN A FOLLOW UP IN THE NEXT FEW WEEKS. INSTRUCTIONS WERE GIVEN, QUESTIONS WERE ANSWERED, AND THE PATIENT EXPRESSED UNDERSTANDING AND AGREES WITH THE PLAN. I, MAXI LANDRY, DOCUMENTED THE ABOVE INFORMATION ACTING A SCRIBE FOR DR. ALAMO. I HAVE REVIEWED THE ABOVE DOCUMENT, WRITTEN BY MAXI MORALESIBMaria M AND I VERIFY THAT IT IS ACCURATE. DIAGNOSTIC IMAGING [facility] FLUORO GUIDE SPINE INJECTION (PAIN)[id number] PROCEDURE CODES 6045F RADXPS IN END [id number] PXD 13451 CERVICAL/THORACIC W/ IMAGING DISPOSITION & COMMUNICATION FOLLOW UP 3 WEEKS ELECTRONICALLY SIGNED BY GANESH ALAMO MD, MD ON 08/27/2018 AT 07:41 PM EDT DISCLAIMER : THIS IS A VISIT SUMMARY EXTRACTED FROM THE [employer] CHART. IT IS NOT A COPY OF THE [employer] PROGRESS NOTE. MTDD
== END ==
LOC: M PAIN 10:00
PROVIDERS: ATTEND Anesthesiology
DX: M50.10 Cervical disc disorder with radiculopathy, unspecified cervical region (principal); M48.02 Spinal stenosis, cervical region; E11.9 Type 2 diabetes mellitus without complications; I25.10 Atherosclerotic heart disease of native coronary artery without angina pectoris; M10.9 Gout, unspecified; E89.0 Postprocedural hypothyroidism; K21.9 Gastro-esophageal reflux disease without esophagitis; G47.30 Sleep apnea, unspecified; J45.909 Unspecified asthma, uncomplicated; I11.0 Hypertensive heart disease with heart failure; K75.81 Nonalcoholic steatohepatitis (NASH); K74.60 Unspecified cirrhosis of liver; I50.9 Heart failure, unspecified; I48.91 Unspecified atrial fibrillation; Z86.718 Personal history of other venous thrombosis and embolism; Z98.41 Cataract extraction status, right eye; Z98.42 Cataract extraction status, left eye; Z90.49 Acquired absence of other specified parts of digestive tract; Z96.642 Presence of left artificial hip joint; Z96.652 Presence of left artificial knee joint; Z87.891 Personal history of nicotine dependence; Z79.84 Long term (current) use of oral hypoglycemic drugs; Z79.899 Other long term (current) drug therapy; Z88.0 Allergy status to penicillin; Z88.1 Allergy status to other antibiotic agents; Z88.5 Allergy status to narcotic agent; Z88.6 Allergy status to analgesic agent; Z88.8 Allergy status to other drugs, medicaments and biological substances
CPT/HCPCS: 62321; J1030; Q9967

== ENCOUNTER → 2018-09-20 | Outpatient (REF) | payer MEDICARE, BC ==
[~2018-09-20] MED LIST changes: -ISOVUE-M 300 61% 15ML VIAL (Q9967) As Ordered ONE; -LIDOCAINE 1% SDV INJ 30 ML VIAL As Ordered ONE; -diazePAM 5 MG TAB As Ordered ONE; -methylPREDNISolone SUSP 40 MG/ML (DEPO-medrol) VIAL (J1030) As Ordered ONE
[2018-09-20 12:41] LABS: ALBUMIN 3.9 GM/DL (3.2-5.2); BASO # 0.1 10^3/uL (0.0-0.2); BASO % 0.6 % (0.0-1.0); CALCIUM LEVEL 9.7 MG/DL (8.8-10.2); CREATININE FOR GFR 1.79 MG/DL (0.55-1.30); EOS # 0.7 10^3/uL (0.0-0.50); EOS % 8.7 % (0.0-3.0); GLOMERULAR FILTRATION RATE 29.2 (>39); HEMATOCRIT 37.8 % (36.0-47.0); HEMOGLOBIN 12.3 g/dl (12.0-15.5); LYMPH # 1.8 10^3/uL (1.5-4.5); LYMPH % 22.2 % (24.0-44.0); MEAN CORPUSCULAR HEMOGLOBIN 30.4 pg (27.0-33.0); MEAN CORPUSCULAR HGB CONC 32.5 g/dl (32.0-36.5); MEAN CORPUSCULAR VOLUME 93.3 fl (80.0-96.0); MONO # 0.5 10^3/uL (0.0-0.8); MONO % 6.2 % (0.0-5.0); NEUTROPHILS % 61.8 % (36.0-66.0); PHOSPHORUS LEVEL 3.4 MG/DL (2.5-4.9); PLATELET COUNT, AUTOMATED 176 10^3/uL (150-450); POTASSIUM SERUM 3.8 MEQ/L (3.5-5.1); RED BLOOD COUNT 4.05 10^6/uL (4.00-5.40); WHITE BLOOD COUNT 8.1 10^3/uL (4.0-10.0)
== END ==
LOC: M LABDRWAD 11:30
PROVIDERS: ATTEND Physician Assistant
DX: I47.1 Supraventricular tachycardia (principal)

== ENCOUNTER → 2018-10-04 | Outpatient (REF) | payer MEDICARE, BC ==
[2018-10-04 17:07] LABS: CALCIUM LEVEL 9.8 MG/DL (8.8-10.2); CHOLESTEROL RISK RATIO 3.428 (<5); CREATININE FOR GFR 1.67 MG/DL (0.55-1.30); FREE T4 1.44 NG/DL (0.76-1.46); GLOMERULAR FILTRATION RATE 31.6 (>39); POTASSIUM SERUM 4.8 MEQ/L (3.5-5.1); THYROID STIMULATING HORMONE 3.07 uIU/ML (0.358-3.740)
[2018-10-04 17:22] LABS: HEMOGLOBIN A1c 7.6 %
[2018-10-04 17:30] LABS: MALB URINE SIEMENS 27.7 MG/L; MAU/CREAT RATIO 18.2 MCG/MG (0.0-30.0)
== END ==
LOC: M SFHCCLAY 10:03
PROVIDERS: ATTEND Family Medicine
DX: I48.92 Unspecified atrial flutter (principal); E11.21 Type 2 diabetes mellitus with diabetic nephropathy; N18.4 Chronic kidney disease, stage 4 (severe); E03.9 Hypothyroidism, unspecified

== ENCOUNTER → 2018-11-13 | Outpatient (CLI) | payer MEDICARE, BC ==
[~2018-11-13] MED LIST changes: -BISO5TAB5 PO; +BISO5TAB9 PO
--- NOTE | 2018-11-30 00:25 | ECWPNPC ---
PATIENT NAME: CINDI LYLES : 1940 GENDER: FEMALE VISIT DATE: 11/13/2018 DISCHARGE DATE: 11/13/18 1408 VISIT LOCKED DATE TIME: PHYSICIAN: JOSIANE KAY PHYSICIAN PAGER NO: [phone] RESOURCE: JOSIANE KAY REASON FOR APPOINTMENT 1. POST PROC HISTORY OF PRESENT ILLNESS HISTORY OF PRESENT ILLNESS: HERE FOR POST PROCEDURE F/U.HAD C7/T1 RENETTA ON 08/16/18.REPORTING 100% RESOLUTION OF LEFT FOREARM PAIN AND 50% REDUCTION IN LEFT UPPER ARM PAIN SINCE INJECTION.SOME IMPROVEMENT WITH ROJM OF LEFT ARM.SHE IS RELUCTANT TO CONSIDER SURGERY.HX OF 3 LUMBAR SURGERY FUSIONS /REVISIONS ,FIRST SURGERY WAS 8 YEARS AGO AND LAST ONE 4 YEARS AGO.RATING PAIN VAS 3/10. PAIN THE PATIENT DESCRIBES THE PAIN... FALL RISK SCREENING: SCREENING :NO FALLS REPORTED IN THE LAST YEAR CURRENT MEDICATIONS TAKING BYSTOLIC 2.5 MG TABLET 1 TABLET ORALLY BID TAKING LEVOTHYROXINE SODIUM 150 MCG TABLET 1 TABLET ON AN EMPTY STOMACH IN THE MORNING ORALLY ONCE A DAY TAKING JANUVIA 25 MG TABLET 1 TAB ORALLY DAILY TAKING ONE TOUCH ULTRA TEST STRIPS STRIPS 1 STRIP _ DAILY TAKING GLUCOSTIX TAKING ONE TOUCH ULTRA SYSTEM KIT ONE TOUCH METER DIRECTED E11.9 TAKING ONETOUCH ULTRA BLUE - STRIP DIRECTED IN [id number] TAKING ONETOUCH LANCETS ONE TOUCH LANCETS FINGERSTICKS ULTRA DAILY TAKING FAMOTIDINE 20 MG TABLET 1 TAB ORALLY BID TAKING MULTI ADULT GUMMIES 1 TABLET CHEWABLE 2 CHEWS ORALLY DAILY TAKING VITAMIN C ADULT GUMMIES 125 MG TABLET CHEWABLE DIRECTED ORALLY TAKING CPAP MASK AND SUPPLIES ----- ------ ----- DIRECTED TAKING NYSTATIN 171016 UNIT/GM POWDER 1 APPLICATION TO AFFECTED AREA EXTERNALLY TID TAKING MICONAZOLE ANTIFUNGAL 2 % CREAM 1 APPLICATION TO AFFECTED AREA EXTERNALLY TID TAKING ALLOPURINOL 100MG TABLET 1 TAB(S) ORALLY ONCE DAILY TAKING HYDROXYCHLOROQUINE SULFATE 200 MG TABLET 1 TABLETS WITH FOOD OR MILK ORALLY DAILY TAKING CALCITRIOL 0.25 MCG CAPSULE 1 CAPSULE ORALLY ONCE A DAY TAKING ADVAIR DISKUS 250-50 MCG/DOSE AEROSOL POWDER BREATH ACTIVATED 1 PUFF INHALATION TWICE A DAY TAKING TORSEMIDE 20 MG TABLET 1 TAB ONCE DAILY ORALLY 90 DAYS TAKING ISOSORBIDE DINITRATE 10 TABLET 1 TABLET ORALLY TWICE A DAY TAKING GLIMEPIRIDE 4 TABLET ONE HALF TAB ORALLY BID TAKING AMIODARONE HCL 200 MG TABLET 1 TABLET ORALLY BID NOT-TAKING BYSTOLIC 5 MG TABLET 1/2 TABLET ORALLY BID NOT-TAKING ERYTHROMYCIN 5 MG/GM OINTMENT 1 APPLICATION OPHTHALMIC FOUR TIMES A DAY NOT-TAKING JANUVIA 25 TABLET 1 TAB DAILY ORALLY 90 DAYS MEDICATION LIST REVIEWED AND RECONCILED WITH THE PATIENT PAST MEDICAL HISTORY DM CAD, GOUT HYPOTHYROID GERD SLEEP APNEA ASTHMA HTN ARANA WITH CIRRHOSIS MULTIFOCAL ATRIAL RHYTHM/TACHYCARDIA PROXIMAL JUNCTIONAL KYPNOSIS SPIROMETRY DONE LAST 06/14/2016 @ PULMONARY IN NOTE SELLAR ARACHNOID CYST 11/2016 RIGHT CATARACT FIRST 1 WEEK LATER LEFT EYE DONE 01/2017 ENDOSCOPY AND COLONOSCOPY DONE BY DIABETES MELLITUS WITHOUT MENTION OF COMPLICATION, TYPE II OR UNSPECIFIED TYPE, NOT STATED UNCONTROLLED CONGESTIVE HEART FAILURE SCLERODERMA SPINAL STENOSIS DVT RIGHT ARM AFTER PICC 2014 ATRIAL FIBRILLATION ALLERGIES IMITREX: HIGH BP SWEATS - CONTRAINDICATION PENICILLIN V POTASSIUM: ANAPHYLAXIS - ALLERGY ERYTHROMYCIN: N/V HEADACHE - SIDE EFFECTS CODEINE PHOSPHATE: NAUSEA/ STOMACH PAIN/HEADACHE - SIDE EFFECTS MORPHINE SULFATE: CONFUSION - CONTRAINDICATION CIPRO: MUSCLES LOCKING UP IN LEGS - CONTRAINDICATION BACTRIM DS: YUSUF, NAUSEA - SIDE EFFECTS IBUPROFEN: SWELLING - SIDE EFFECTS GABAPENTIN: SEIZURES,HTN - CONTRAINDICATION BACLOFEN: SEIZURES,HTN - CONTRAINDICATION SURGICAL HISTORY APPENDECTOMY 1941 TONSILECTOMY HYSTERECTOMY THYROIDECTOMY GALLBLADDER RIGHT SHOULDER SURGERY BACK SURGERY, MULTI-LEVEL FUSION 2010 TOTAL RIHGT HIP FATTY TUMOR ON LEFT ARM AND ONE ON NECK. TIGGER FINGER RIGHT INDEX FINGER. LEFT HIP REPLACEMENT OCT 22 2010 REMOVED 5 TUMORS AND BACK FUSION THEN HAD A LUMBAR LEAKAGE AND RETURNED TO SURGERY FOR REPAIR OF LEAK Feb TOTAL LEFT KNEE 06/20-07/10/14 BACK SURGERY August CATARACT SURGERY 2017 CARDIAC ABLATION 10/26/18 FAMILY HISTORY FATHER: 79 YRS, UNKNOWN CAUSE, DIAGNOSED WITH UNSPECIFIED HEART DISEASE MOTHER: 82 YRS, CVA, DIABETES, UNSPECIFIED HEART DISEASE SIBLINGS: , SISTER 69 OF BREAST CA; BROTHER AGE 88, HISTORY OF PSYCH ISSUES, ALZHEIMERS SUSPECT, DIABETES, UNSPECIFIED HEART DISEASE, OTHER MALIGNANT NEOPLASM OF UNSPECIFIED SITE 1DAUGHTER(S) . EXTENSIVE DIABETES HISTORY IN GRANDPARENTS 3 STEP CHILDERN. SOCIAL HISTORY GENERAL: TOBACCO USE ARE YOU A:NONSMOKER FORMER SMOKER QUIT 1971 ADDITIONAL FINDINGS: TOBACCO USER NO ADDITIONAL FINDINGS: TOBACCO NON-USERCURRENT NON-SMOKER VAPORNO E-CIGARETTENO HIV / HEP-C SCREENING HIV TEST OFFERED TO PATIENT:NO NOT HEP-C TEST OFFERED TO PATIENT:NO BORN 1940 OTHERS AT HOME: SPOUSE. HOUSING: OWNS HOME. DIET: NO CONCENTRATED SWEETS., LOW FAT, LOW CHOLESTEROL. LANGUAGE [place]. DOMESTIC VIOLENCE NONE. BMI CARE GOAL FOLLOW-UP ABOVE NORMAL BMI FOLLOW-UPDIETARY MANAGEMENT EDUCATION, GUIDANCE, AND COUNSELING RECREATIONAL DRUG USE DRUG USE?NO EXERCISE: NO REGULAR EXERCISE. LEARNING BARRIERS / SPECIAL NEEDS CHANGE FROM LAST VISIT?NO 09/21/2018 BARRIERS TO LEARNING?NO HEARING IMPAIRED?YES RIGHT EAR DEAF / LEFT EAR PARTIAL LOSS VISION IMPAIRED?NO COGNITIVELY IMPAIRED?NO :HEARING AIDES READINESS TO LEARN?YES LEARNING PREFERENCES?NO LEARNING CAPABILITIES PRESENT?YES EMOTIONAL BARRIERS?NO SPECIAL DEVICES?YES :CANE SLOT FLOORMAN NEEDED?NO LUNG CANCER SCREENING SMOKING STATUS:FORMER SMOKER IS THE PATIENT BETWEEN THE AGE OF 55 AND 77?YES HAVE YOU QUIT SMOKING WITHIN THE PAST 15 YEARS?NO PAIN CLINIC PFS, CLERGY, PUBLIC HEALTH REFERRALS HAS THE PATIENT BEEN EDUCATED REGARDING HIS/HER PLAN OF CARE?YES HAS THE PATIENT BEEN EDUCATED REGARDING PAIN, THE RISK FOR PAIN, THE IMPORTANCE OF EFFECTIVE PAIN MANAGEMENT, AND THE PAIN ASSESSMENT PROCESS?YES LATEX QUESTIONNAIRE LATEX ALLERGY : HAVE YOU EVER DEVELOPED ANY TYPE OF REACTION AFTER HANDLING LATEX PRODUCTS SUCH RUBBER GLOVES, CONDOMS, DIAPHRAGMS, BALLOONS, SOCKS, OR UNDERWEAR?NO LATEX ALLERGY : HAVE YOU EVER DEVELOPED ANY TYPE OF REACTION DURING OR AFTER DENTAL APPOINTMENT, VAGINAL/RECTAL EXAMINATION, SURGICAL PROCEDURE, OR ANY OTHER EXPOSURE?NO DATE ASKED : 09/21/2018 LATEX RISK : HAVE YOU EVER HAD ANY DIFFICULTY BREATHING OR HIVES AFTER EATING OR HANDLING ANY FRUITS, OR VEGETABLES; SUCH KIWI, BANANAS, STONE FRUITS, OR CHESTNUTSNO LATEX RISK : DO YOU HAVE A PREVIOUS PERSONAL HISTORY OF MORE THAN NINE SURGERIES, SPINA BIFIDA, OR REPEATED CATHERIZATIONS? NO LATEX RISK : ARE YOU FREQUENTLY EXPOSED TO LATEX PRODUCTS IN YOUR OCCUPATION?NO CAFFEINE NONE. ADVANCE DIRECTIVE ADVANCE DIRECTIVE DISCUSSED WITH PATIENT: PT DECLINES HCP INFO AND ASSISTANCE. YAZDANISM [id number] NONE NO EVANGELICAL BELIEFS THAT WOULD IMPACT HEALTH CARE. MARITAL STATUS: . ALCOHOL SCREENING POINTS: 0, INTERPRETATION: NEGATIVE. SEXUAL HX HAD SEX IN THE LAST 12 MONTHS (VAGINAL, ORAL, OR ANAL)?NO HAVE YOU EVER HAD AN STD?NO REVIEWED WITH PATIENT 06/09/18 1021 BVREVIEWED WITH PATIENT 07/07/18 1015 JSREVIEWED WITH PT 11/13/18 1328 NLJ. HOSPITALIZATION/MAJOR DIAGNOSTIC PROCEDURE SURGERY OCT 22 2010 [facility] CEREBROSPINAL FLUID LEAK AND HEADACHE AFTER CT MYELOGRAM Dec -Dec TOTAL LEFT KNEE AND DVT SECONDARY TO SURGERY 06/20-07/10/14 AFIB,AFLUTTER, TACHYCARDIA 06/2014 ADMITTED FOR BACK SURGERY August CONGESTIVE HEART FAILURE 05/2018 REVIEW OF SYSTEMS REVIEWED BY: PROVIDER: JOSIANE TOMAS . CONSTITUTIONAL: ANY CHANGE IN YOUR MEDICAL CONDITION? YES- CARDIAC ABLATION AT [facility] IN [place] IN 09/2018 . CHILLS NO . FEVER NO . INFECTION: DO YOU HAVE NEW INFECTIONS? NO . DO YOU HAVE HISTORY OF MRSA? NO . MUSCULOSKELETAL: ANY NEW PATTERNS OF PAIN OR NUMBNESS? NO- STATES THE RENETTA RELIEVED PAIN IN UPPER ARM FROM NECK TO ELBOW BY 50%, AND LOWER ARM FROM ELBOW TO FINGERS BY 100% . GASTROENTEROLOGY: ANY NEW CHANGE IN BOWEL CONTROL? NO . GENITOURINARY: ANY NEW CHANGE IN BLADDER CONTROL? NO . IS THERE A CHANCE YOU COULD BE ? NO . HEMATOLOGY/LYMPH: DO YOU TAKE ANY BLOOD THINNERS? (FOR EXAMPLE- COUMADIN, PLAVIX, AGGRENOX, PLATEL, PRADAXA, OR XARELTO) NO . WHEN WAS YOUR LAST DOSE? DATE: TIME: . NEUROLOGY: HAVE YOU FALLEN IN THE PAST 12 MONTHS? NO . ANY NEW EXTREMITY NUMBNESS OR WEAKNESS? NO . CARDIOLOGY: DO YOU HAVE A PACEMAKER OR DEFIBRILLATOR? NO . RESPIRATORY: HAVE YOU BEEN SICK IN THE PAST WEEK? NO . FEVER NO . FLU LIKE SYMPTOMS? NO . COUGH NO . INTEGUMENTARY: DO YOU HAVE ANY RASHES OR OPEN SORES? NO . ALLERGIC/IMMUNO: ARE YOU ALLERGIC TO IV DYE? NO . ANY NEW ALLERGIES? NO . PSYCHIATRIC: DO YOU HAVE THOUGHTS OF HURTING YOURSELF OR SOMEONE ELSE? NO . ARE YOU ABUSED, NEGLECTED, OR IN AN UNSAFE ENVIRONMENT? NO . ENDOCRINOLOGY: ARE YOU DIABETIC? YES . OTHER: DO YOU NEED ANY PRESCRIPTIONS? NO . IF YES, PLEASE LIST: ____ . ANY NEW PROBLEMS WITH YOUR MEDICATIONS? NO . WHEN DID YOU LAST EAT? ____ . WHEN DID YOU LAST DRINK? ____ . WHAT DID YOU LAST DRINK? ____ . NAME OF PERSON DRIVING YOU HOME? ____ . DO YOU HAVE ANY OTHER QUESTIONS OR CONCERNS NO- STATES RENETTA RELEIVED PAIN IN UPPER LORIE BY 50 % AND LOWER ARM TO FINGERS BY 100% . VITAL SIGNS WT 234.6 LBS, HT 64.5 IN, BMI 39.64 INDEX, BP 165/65 MM HG, HR 69 /MIN, RR 18 /MIN, TEMP 97.5 F, OXYGEN SAT % 100%, SAFE IN ENV? (Y/N) YES, NA INITIALS AW 1321, REVIEWED BY: DONNIE. EXAMINATION GENERAL EXAMINATION: GENERALAWAKE,ALERT ,PLEAASANT . PSYCHAFFECT NORMAL . LUNGS:LUNG WILKERSON ARE CLEAR TO AUSCULTATION BILATERALLY. GOOD MOVEMENT OF AIR . HEART:S1, S2 IN A REGULAR RATE AND RHYTHM. NO SIGNIFICANT MURMURS, RUBS OR GALLOPS NOTED . ASSESSMENTS PROTRUSION OF CERVICAL INTERVERTEBRAL DISC - M50.20 (PRIMARY) CERVICAL RADICULOPATHY - M54.12 TREATMENT PROTRUSION OF CERVICAL INTERVERTEBRAL DISC NOTES: PT 2XWK X6WK FOR ROJM-LEFT ARM/HX OF CERVICAL HNP WITH GOOD RESULTS FROM CERVICAL EPIDURAL HERE AT [facility] [place]. PROCEDURE CODES FA211 ESTABILISHED PATIENT [facility] CHARGE DISPOSITION & COMMUNICATION FOLLOW UP 2 MONTHS ELECTRONICALLY SIGNED BY THOM SEAY ON 11/29/2018 AT 04:07 PM EDT DISCLAIMER : THIS IS A VISIT SUMMARY EXTRACTED FROM THE [employer] CHART. IT IS NOT A COPY OF THE [employer] PROGRESS NOTE. NARDA
== END ==
LOC: M PAIN 13:45
PROVIDERS: ATTEND Nurse Practitioner Family
DX: M50.20 Other cervical disc displacement, unspecified cervical region (principal); M54.12 Radiculopathy, cervical region; E11.9 Type 2 diabetes mellitus without complications; E03.9 Hypothyroidism, unspecified; G47.30 Sleep apnea, unspecified; J45.909 Unspecified asthma, uncomplicated; I10 Essential (primary) hypertension; Z96.642 Presence of left artificial hip joint; Z96.652 Presence of left artificial knee joint; Z87.891 Personal history of nicotine dependence; Z88.0 Allergy status to penicillin; Z88.1 Allergy status to other antibiotic agents; Z88.5 Allergy status to narcotic agent; Z88.6 Allergy status to analgesic agent; Z88.8 Allergy status to other drugs, medicaments and biological substances; Z79.899 Other long term (current) drug therapy

== ENCOUNTER → 2018-11-14 | Outpatient (REF) | payer MEDICARE, BC ==
[2018-11-14 17:28] LABS: ALBUMIN 3.9 GM/DL (3.2-5.2); BILIRUBIN,TOTAL 0.7 MG/DL (0.2-1.0); CALCIUM LEVEL 9.5 MG/DL (8.8-10.2); CREATININE FOR GFR 1.8 MG/DL (0.55-1.30); MAGNESIUM LEVEL 2.1 MG/DL (1.8-2.4); POTASSIUM SERUM 3.8 MEQ/L (3.5-5.1); THYROID STIMULATING HORMONE 3.06 uIU/ML (0.358-3.740); THYROXINE (T4) 16.4 UG/DL (4.5-12.0); TOTAL PROTEIN 6.7 GM/DL (6.4-8.2)
== END ==
LOC: M LABDRAWC 16:18
PROVIDERS: ATTEND Physician Assistant
DX: I47.1 Supraventricular tachycardia (principal)

== ENCOUNTER → 2018-12-12 | Outpatient (CLI) | payer MEDICARE, BC ==
[~2018-12-12] MED LIST changes: +GLIM1TAB2 PO; -GLIM2TAB PO; +GLIM2TAB2 PO; -GLIM4TAB PO; +GLIM4TAB3 PO
--- NOTE | 2018-12-12 15:54 | REP ---
Two-view chest: 12/12/2018. Indication: Dyspnea. Comparison: 05/31/2018. Findings: Compared to the prior study, no significant changes are present. Bibasilar atelectatic changes and cardiomegaly are redemonstrated. Stabilization hardware of the spine appears intact in its visualized portion. No significant pleural fluid or pneumothorax are present. Impression: No acute cardiopulmonary process. New essentially stable examination compared to 05/31/2018. Electronically Signed by Yeyo Lewis DO 12/12/2018 03:45 P
== END ==
LOC: M CLY 14:46
PROVIDERS: ATTEND Internal Medicine Cardiovascular Disease
DX: R91.8 Other nonspecific abnormal finding of lung field (principal); I51.7 Cardiomegaly; R06.02 Shortness of breath; E11.21 Type 2 diabetes mellitus with diabetic nephropathy
CPT/HCPCS: 71046; 80053; 83036; 84439; 84443; G0463

== ENCOUNTER → 2018-12-12 | Outpatient (REF) | payer MEDICARE, BC ==
[~2018-12-12] MED LIST changes: -GLIM1TAB2 PO; +GLIM2TAB PO; -GLIM2TAB2 PO; +GLIM4TAB PO; -GLIM4TAB3 PO
[2018-12-13 12:37] LABS: ALBUMIN 3.9 GM/DL (3.2-5.2); BILIRUBIN,TOTAL 0.5 MG/DL (0.2-1.0); CALCIUM LEVEL 9.6 MG/DL (8.8-10.2); CREATININE FOR GFR 2.25 MG/DL (0.55-1.30); FREE T4 1.73 NG/DL (0.76-1.46); GLOMERULAR FILTRATION RATE 22.4 (>39); POTASSIUM SERUM 3.9 MEQ/L (3.5-5.1); THYROID STIMULATING HORMONE 3.07 uIU/ML (0.358-3.740); TOTAL PROTEIN 6.8 GM/DL (6.4-8.2)
[2018-12-13 12:57] LABS: HEMOGLOBIN A1c 6.5 %
== END ==
LOC: M SFHCCLAY 14:28
PROVIDERS: ATTEND Family Medicine
DX: E03.9 Hypothyroidism, unspecified (principal); I48.92 Unspecified atrial flutter; E11.21 Type 2 diabetes mellitus with diabetic nephropathy

== ENCOUNTER → 2018-12-25 | Outpatient (CLI) | payer MEDICARE, BC ==
[~2018-12-25] MED LIST changes: +GLIM1TAB2 PO; -GLIM2TAB PO; +GLIM2TAB2 PO; -GLIM4TAB PO; +GLIM4TAB3 PO
--- NOTE | 2018-12-26 03:04 | ECWPNPC ---
PATIENT NAME: CINDI LYLES : 1940 GENDER: FEMALE VISIT DATE: 12/25/2018 DISCHARGE DATE: 12/25/18 1358 VISIT LOCKED DATE TIME: PHYSICIAN: JOSIANE KAY PHYSICIAN PAGER NO: [phone] RESOURCE: JOSIANE KAY REASON FOR APPOINTMENT 1. RIB/BACK HISTORY OF PRESENT ILLNESS HISTORY OF PRESENT ILLNESS: HERE FOR F/U OF CHRONIC LEFT SHOULDER AND ARM PAIN.SHE HAS ATTENDED PT PER OUR REFERRAL AND IS REPORTING IMPROVED ROJM LEFT ARM AND LESS PAIN.RATING PAIN VAS 3/10.DOING HOME EXCERSISE. PAIN THE PATIENT DESCRIBES THE PAIN... FALL RISK SCREENING: SCREENING :NO FALLS REPORTED IN THE LAST YEAR CURRENT MEDICATIONS TAKING CPAP MASK AND SUPPLIES ----- ------ ----- DIRECTED TAKING ONE TOUCH ULTRA TEST STRIPS STRIPS 1 STRIP _ DAILY TAKING ONETOUCH LANCETS ONE TOUCH LANCETS FINGERSTICKS ULTRA DAILY TAKING ONE TOUCH ULTRA SYSTEM KIT ONE TOUCH METER DIRECTED E11.9 TAKING CALCITRIOL 0.25 MCG CAPSULE 1 CAPSULE ORALLY ONCE A DAY TAKING LEVOTHYROXINE SODIUM 150 MCG TABLET 1 TABLET ON AN EMPTY STOMACH IN THE MORNING ORALLY ONCE A DAY TAKING BYSTOLIC 2.5 MG TABLET 1 TABLET ORALLY DAILY TAKING TORSEMIDE 20 MG TABLET 1 TAB ONCE DAILY ORALLY 90 DAYS TAKING ISOSORBIDE DINITRATE 10 TABLET 1 TABLET ORALLY TWICE A DAY TAKING AMIODARONE HCL 200 MG TABLET 1 TABLET ORALLY DAILY TAKING JANUVIA 25 MG TABLET 1 TAB ORALLY DAILY TAKING GLUCOSTIX TAKING GLIMEPIRIDE 4 TABLET ONE HALF TAB ORALLY BID TAKING ONETOUCH ULTRA BLUE - STRIP DIRECTED IN QTIVFR23.22 TAKING HYDROXYCHLOROQUINE SULFATE 200 MG TABLET 1 TABLETS WITH FOOD OR MILK ORALLY DAILY TAKING ALLOPURINOL 100MG TABLET 1 TAB(S) ORALLY ONCE DAILY TAKING ADVAIR DISKUS 250-50 MCG/DOSE AEROSOL POWDER BREATH ACTIVATED 1 PUFF INHALATION TWICE A DAY TAKING FAMOTIDINE 20 MG TABLET 1 TAB ORALLY BID TAKING MULTI ADULT GUMMIES 1 TABLET CHEWABLE 2 CHEWS ORALLY DAILY TAKING VITAMIN C ADULT GUMMIES 125 MG TABLET CHEWABLE DIRECTED ORALLY MEDICATION LIST REVIEWED AND RECONCILED WITH THE PATIENT PAST MEDICAL HISTORY DM CAD, GOUT HYPOTHYROID GERD SLEEP APNEA ASTHMA HTN ARANA WITH CIRRHOSIS MULTIFOCAL ATRIAL RHYTHM/TACHYCARDIA PROXIMAL JUNCTIONAL KYPNOSIS SPIROMETRY DONE LAST 06/14/2016 @ PULMONARY IN NOTE SELLAR ARACHNOID CYST 11/2016 RIGHT CATARACT FIRST 1 WEEK LATER LEFT EYE DONE 01/2017 ENDOSCOPY AND COLONOSCOPY DONE BY DIABETES MELLITUS WITHOUT MENTION OF COMPLICATION, TYPE II OR UNSPECIFIED TYPE, NOT STATED UNCONTROLLED CONGESTIVE HEART FAILURE SCLERODERMA SPINAL STENOSIS DVT RIGHT ARM AFTER PICC 2014 ATRIAL FIBRILLATION ALLERGIES IMITREX: HIGH BP SWEATS - CONTRAINDICATION PENICILLIN V POTASSIUM: ANAPHYLAXIS - ALLERGY ERYTHROMYCIN: N/V HEADACHE - SIDE EFFECTS CODEINE PHOSPHATE: NAUSEA/ STOMACH PAIN/HEADACHE - SIDE EFFECTS MORPHINE SULFATE: CONFUSION - CONTRAINDICATION CIPRO: MUSCLES LOCKING UP IN LEGS - CONTRAINDICATION BACTRIM DS: YUSUF, NAUSEA - SIDE EFFECTS IBUPROFEN: SWELLING - SIDE EFFECTS GABAPENTIN: SEIZURES,HTN - CONTRAINDICATION BACLOFEN: SEIZURES,HTN - CONTRAINDICATION SURGICAL HISTORY APPENDECTOMY 1941 TONSILECTOMY HYSTERECTOMY THYROIDECTOMY GALLBLADDER RIGHT SHOULDER SURGERY BACK SURGERY, MULTI-LEVEL FUSION 2010 TOTAL RIHGT HIP FATTY TUMOR ON LEFT ARM AND ONE ON NECK. TIGGER FINGER RIGHT INDEX FINGER. LEFT HIP REPLACEMENT OCT 22 2010 REMOVED 5 TUMORS AND BACK FUSION THEN HAD A LUMBAR LEAKAGE AND RETURNED TO SURGERY FOR REPAIR OF LEAK Feb TOTAL LEFT KNEE 06/20-07/10/14 BACK SURGERY August CATARACT SURGERY 2017 CARDIAC ABLATION 10/26/18 FAMILY HISTORY FATHER: 79 YRS, UNKNOWN CAUSE, DIAGNOSED WITH UNSPECIFIED HEART DISEASE MOTHER: 82 YRS, CVA, DIABETES, UNSPECIFIED HEART DISEASE SIBLINGS: , SISTER 69 OF BREAST CA; BROTHER AGE 88, HISTORY OF PSYCH ISSUES, ALZHEIMERS SUSPECT, DIABETES, UNSPECIFIED HEART DISEASE, OTHER MALIGNANT NEOPLASM OF UNSPECIFIED SITE 1DAUGHTER(S) . EXTENSIVE DIABETES HISTORY IN GRANDPARENTS 3 STEP CHILDERN. SOCIAL HISTORY GENERAL: TOBACCO USE ARE YOU A:NONSMOKER FORMER SMOKER QUIT 1971 ADDITIONAL FINDINGS: TOBACCO USER NO ADDITIONAL FINDINGS: TOBACCO NON-USERCURRENT NON-SMOKER VAPORNO E-CIGARETTENO HIV / HEP-C SCREENING HIV TEST OFFERED TO PATIENT:NO NOT HEP-C TEST OFFERED TO PATIENT:NO BORN 1939 OTHERS AT HOME: SPOUSE. HOUSING: OWNS HOME. DIET: NO CONCENTRATED SWEETS., LOW FAT, LOW CHOLESTEROL. LANGUAGE [place] CITIZ[place]. DOMESTIC VIOLENCE NONE. BMI CARE GOAL FOLLOW-UP ABOVE NORMAL BMI FOLLOW-UPDIETARY MANAGEMENT EDUCATION, GUIDANCE, AND COUNSELING RECREATIONAL DRUG USE DRUG USE?NO EXERCISE: NO REGULAR EXERCISE. LEARNING BARRIERS / SPECIAL NEEDS CHANGE FROM LAST VISIT?NO 12/12/2018 BARRIERS TO LEARNING?NO HEARING IMPAIRED?YES RIGHT EAR DEAF / LEFT EAR PARTIAL LOSS VISION IMPAIRED?NO COGNITIVELY IMPAIRED?NO :HEARING AIDES READINESS TO LEARN?YES LEARNING PREFERENCES?NO LEARNING CAPABILITIES PRESENT?YES EMOTIONAL BARRIERS?NO SPECIAL DEVICES?YES :CANE CLERICAL CAR CHECKER NEEDED?NO LUNG CANCER SCREENING SMOKING STATUS:FORMER SMOKER IS THE PATIENT BETWEEN THE AGE OF 55 AND 77?YES HAVE YOU QUIT SMOKING WITHIN THE PAST 15 YEARS?NO PAIN CLINIC PFS, CLERGY, PUBLIC HEALTH REFERRALS HAS THE PATIENT BEEN EDUCATED REGARDING HIS/HER PLAN OF CARE?YES HAS THE PATIENT BEEN EDUCATED REGARDING PAIN, THE RISK FOR PAIN, THE IMPORTANCE OF EFFECTIVE PAIN MANAGEMENT, AND THE PAIN ASSESSMENT PROCESS?YES LATEX QUESTIONNAIRE LATEX ALLERGY : HAVE YOU EVER DEVELOPED ANY TYPE OF REACTION AFTER HANDLING LATEX PRODUCTS SUCH RUBBER GLOVES, CONDOMS, DIAPHRAGMS, BALLOONS, SOCKS, OR UNDERWEAR?NO LATEX ALLERGY : HAVE YOU EVER DEVELOPED ANY TYPE OF REACTION DURING OR AFTER DENTAL APPOINTMENT, VAGINAL/RECTAL EXAMINATION, SURGICAL PROCEDURE, OR ANY OTHER EXPOSURE?NO LATEX RISK : HAVE YOU EVER HAD ANY DIFFICULTY BREATHING OR HIVES AFTER EATING OR HANDLING ANY FRUITS, OR VEGETABLES; SUCH KIWI, BANANAS, STONE FRUITS, OR CHESTNUTSNO LATEX RISK : DO YOU HAVE A PREVIOUS PERSONAL HISTORY OF MORE THAN NINE SURGERIES, SPINA BIFIDA, OR REPEATED CATHERIZATIONS? NO LATEX RISK : ARE YOU FREQUENTLY EXPOSED TO LATEX PRODUCTS IN YOUR OCCUPATION?NO DATE ASKED : 12/12/2018 CAFFEINE NONE. ADVANCE DIRECTIVE ADVANCE DIRECTIVE DISCUSSED WITH PATIENT: PT DECLINES HCP INFO AND ASSISTANCE. SIKHISM [id number] NONE NO ORIENTAL ORTHODOX BELIEFS THAT WOULD IMPACT HEALTH CARE. MARITAL STATUS: . ALCOHOL SCREENING POINTS: 0, INTERPRETATION: NEGATIVE. SEXUAL HX HAD SEX IN THE LAST 12 MONTHS (VAGINAL, ORAL, OR ANAL)?NO HAVE YOU EVER HAD AN STD?NO REVIEWED WITH PATIENT 06/09/18 1021 BVREVIEWED WITH PATIENT 07/07/18 1015 JSREVIEWED WITH PT 11/13/18 1328 NLJREVIEWED WITH PATIENT 12/25/18 1334 JS. HOSPITALIZATION/MAJOR DIAGNOSTIC PROCEDURE SURGERY OCT 22 2010 [facility] CEREBROSPINAL FLUID LEAK AND HEADACHE AFTER CT MYELOGRAM Dec -Dec TOTAL LEFT KNEE AND DVT SECONDARY TO SURGERY 06/20-07/10/14 AFIB,AFLUTTER, TACHYCARDIA 06/2014 ADMITTED FOR BACK SURGERY August CONGESTIVE HEART FAILURE 05/2018 REVIEW OF SYSTEMS REVIEWED BY: PROVIDER: JOSIANE TOMAS . CONSTITUTIONAL: ANY CHANGE IN YOUR MEDICAL CONDITION? NO . CHILLS NO . FEVER NO . INFECTION: DO YOU HAVE NEW INFECTIONS? NO . DO YOU HAVE HISTORY OF MRSA? NO . MUSCULOSKELETAL: ANY NEW PATTERNS OF PAIN OR NUMBNESS? YES, STATES SHE HAS BEEN DOING EXERCISES LATELY THAT HAVE BEEN HELPING THE PAIN SOME AND HAVE HELPED WITH HER RANGE OF MOTION . GASTROENTEROLOGY: ANY NEW CHANGE IN BOWEL CONTROL? NO . GENITOURINARY: ANY NEW CHANGE IN BLADDER CONTROL? NO . IS THERE A CHANCE YOU COULD BE ? NO . HEMATOLOGY/LYMPH: DO YOU TAKE ANY BLOOD THINNERS? (FOR EXAMPLE- COUMADIN, PLAVIX, AGGRENOX, PLATEL, PRADAXA, OR XARELTO) NO . WHEN WAS YOUR LAST DOSE? DATE: TIME: . NEUROLOGY: HAVE YOU FALLEN IN THE PAST 12 MONTHS? NO . ANY NEW EXTREMITY NUMBNESS OR WEAKNESS? NO . CARDIOLOGY: DO YOU HAVE A PACEMAKER OR DEFIBRILLATOR? NO . RESPIRATORY: HAVE YOU BEEN SICK IN THE PAST WEEK? NO . FEVER NO . FLU LIKE SYMPTOMS? NO . COUGH NO . INTEGUMENTARY: DO YOU HAVE ANY RASHES OR OPEN SORES? NO . ALLERGIC/IMMUNO: ARE YOU ALLERGIC TO IV DYE? NO . ANY NEW ALLERGIES? NO . PSYCHIATRIC: DO YOU HAVE THOUGHTS OF HURTING YOURSELF OR SOMEONE ELSE? NO . ARE YOU ABUSED, NEGLECTED, OR IN AN UNSAFE ENVIRONMENT? NO . ENDOCRINOLOGY: ARE YOU DIABETIC? YES . OTHER: DO YOU NEED ANY PRESCRIPTIONS? NO . IF YES, PLEASE LIST: ____ . ANY NEW PROBLEMS WITH YOUR MEDICATIONS? NO . WHEN DID YOU LAST EAT? ____ . WHEN DID YOU LAST DRINK? ____ . WHAT DID YOU LAST DRINK? ____ . NAME OF PERSON DRIVING YOU HOME? ____ . DO YOU HAVE ANY OTHER QUESTIONS OR CONCERNS NO . VITAL SIGNS WT 240.6 LBS, HT 64.5 IN, BMI 40.66 INDEX, BP 183/99 MM HG, REPEAT BP 148/68 MANUAL, HR 67 /MIN, RR 18 /MIN, TEMP 98.1 F, OXYGEN SAT % 98%, SAFE IN ENV? (Y/N) YES, NA INITIALS SC 13:31, REVIEWED BY: JOCELIN. EXAMINATION GENERAL EXAMINATION: GENERAL AWAKE,ALERT ,PLEASANT . PSYCH AFFECT NORMAL . LUNGS: LUNG WILKERSON ARE CLEAR TO AUSCULTATION BILATERALLY. GOOD MOVEMENT OF AIR . HEART: S1, S2 IN A REGULAR RATE AND RHYTHM. NO SIGNIFICANT MURMURS, RUBS OR GALLOPS NOTED . MUSCULOSKELETAL: ROJM -SLIGHTLY ABOVE SHOULDER HEIGHT ABDUCTION.MST UPPER EXTREMITIES 5/5. 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 PROCEDURE CODES FA211 ESTABILISHED PATIENT [facility] CHARGE DISPOSITION & COMMUNICATION FOLLOW UP PT WILL CALL ELECTRONICALLY SIGNED BY THOM SEAY ON 12/25/2018 AT 02:00 PM EDT DISCLAIMER : THIS IS A VISIT SUMMARY EXTRACTED FROM THE [employer] CHART. IT IS NOT A COPY OF THE TARDIS-BOX.[employer] PROGRESS NOTE. NARDA
== END ==
LOC: M PAIN 13:30
PROVIDERS: ATTEND Nurse Practitioner Family
DX: M50.10 Cervical disc disorder with radiculopathy, unspecified cervical region (principal); E11.9 Type 2 diabetes mellitus without complications; I25.10 Atherosclerotic heart disease of native coronary artery without angina pectoris; M10.9 Gout, unspecified; E03.9 Hypothyroidism, unspecified; K21.9 Gastro-esophageal reflux disease without esophagitis; G47.30 Sleep apnea, unspecified; J45.909 Unspecified asthma, uncomplicated; I11.0 Hypertensive heart disease with heart failure; K75.81 Nonalcoholic steatohepatitis (NASH); K74.60 Unspecified cirrhosis of liver; I50.9 Heart failure, unspecified; Z86.718 Personal history of other venous thrombosis and embolism; I48.91 Unspecified atrial fibrillation; M34.9 Systemic sclerosis, unspecified; Z87.891 Personal history of nicotine dependence; Z79.84 Long term (current) use of oral hypoglycemic drugs; Z79.899 Other long term (current) drug therapy; Z98.41 Cataract extraction status, right eye; Z98.42 Cataract extraction status, left eye; Z96.643 Presence of artificial hip joint, bilateral; Z96.652 Presence of left artificial knee joint; Z88.0 Allergy status to penicillin; Z88.1 Allergy status to other antibiotic agents; Z88.5 Allergy status to narcotic agent; Z88.6 Allergy status to analgesic agent; Z88.8 Allergy status to other drugs, medicaments and biological substances

== ENCOUNTER → 2019-08-06 | Outpatient (REF) | payer MEDICARE, BC ==
[~2019-08-06] MED LIST changes: +BISO5TAB14 PO; -BISO5TAB9 PO; +CYCL-707 PO; -CYCL10TA PO; -GLIM1TAB2 PO; +GLIM1TAB4 PO; -GLIM2TAB2 PO; +GLIM2TAB4 PO; -GLIM4TAB3 PO; +GLIM4TAB5 PO; -IRBE150T12 PO; +IRBE150T7 PO; +IRBE75TA4 PO; -IRBE75TA5 PO; +VITA-243 PO; -VITA500T PO
[2019-08-06 11:50] LABS: BASO # 0.1 10^3/uL (0.0-0.2); BASO % 0.8 % (0.0-1.0); EOS # 0.6 10^3/uL (0.0-0.5); EOS % 8.1 % (0.0-3.0); HEMOGLOBIN 12.2 g/dl (12.0-15.5); LYMPH # 1.7 10^3/uL (1.5-5.0); LYMPH % 23.3 % (24.0-44.0); MEAN CORPUSCULAR HEMOGLOBIN 30.8 pg (27.0-33.0); MEAN CORPUSCULAR HGB CONC 32.1 g/dl (32.0-36.5); MONO # 0.5 10^3/uL (0.0-0.8); MONO % 7.1 % (0.0-5.0); NEUTROPHILS # 4.3 10^3/uL (1.5-8.5); NEUTROPHILS % 60.4 % (36.0-66.0); PLATELET COUNT, AUTOMATED 183 10^3/uL (150-450); RED BLOOD COUNT 3.96 10^6/uL (4.00-5.40); WHITE BLOOD COUNT 7.1 10^3/uL (4.0-10.0)
[2019-08-06 12:10] LABS: ALBUMIN 3.9 GM/DL (3.2-5.2); BILIRUBIN,TOTAL 0.5 MG/DL (0.2-1.0); CALCIUM LEVEL 9.5 MG/DL (8.8-10.2); CHOLESTEROL RISK RATIO 3.782 (<5); CREATININE FOR GFR 2.59 MG/DL (0.55-1.30); FREE T4 1.87 NG/DL (0.76-1.46); POTASSIUM SERUM 4.2 MEQ/L (3.5-5.1); THYROID STIMULATING HORMONE 1.84 uIU/ML (0.358-3.740)
[2019-08-06 12:26] LABS: HEMOGLOBIN A1c 7.1 %
== END ==
LOC: M SFHCCLAY 07:48
PROVIDERS: ATTEND Family Medicine
DX: E03.9 Hypothyroidism, unspecified (principal); E11.21 Type 2 diabetes mellitus with diabetic nephropathy; I10 Essential (primary) hypertension; K75.4 Autoimmune hepatitis

== ENCOUNTER → 2019-09-26 | Outpatient (CLI) | payer MEDICARE, BC ==
[~2019-09-26] MED LIST changes: +AMIO200T3; +DOXY100C37 PO
--- NOTE | 2019-11-16 07:10 | REP ---
NUCLEAR RENAL SCINTIGRAPHY WITH DIFFERENTIAL FLOW AND FUNCTION ANALYSIS: HISTORY: Chronic kidney disease stage IV. Renovascular hypertension. TECHNIQUE: 8.8 mCi of technetium-99m MAG3 is injected and sequential posterior flow and excretory phase images are acquired. Renal cortical regions of interest are drawn and time activity curves are plotted for renal function analysis. FINDINGS: Posterior flow study shows somewhat sluggish but symmetric renal bed perfusion bilaterally. Excretory phase images show no evidence of intrarenal mass on either side. The intrarenal collecting systems are not labeled until the 4-5 minutes on either side. No evidence of obstructive uropathy is seen on the left. On the right, the intrarenal collecting system appears somewhat full. Differential function analysis is asymmetric with 61% of renal cortical counts coming from the left kidney and 39% emanating from the right kidney. The right kidney appears somewhat smaller. Time to peak activity is delayed bilaterally at 6.0 minutes. Time to half max activity is delayed bilaterally with flat renal excretion curves bilaterally. The time to half max activity is greater than 30 minutes on the right and 28 minutes on the left. IMPRESSION: There is fullness of the intrarenal collecting system of the right kidney and some right renal atrophy is seen. There is impaired renal excretion bilaterally. Symmetrical but somewhat sluggish bilateral renal bed perfusion. MTDD
== END ==
LOC: M RAD 07:38
PROVIDERS: ATTEND Internal Medicine Nephrology
DX: N13.39 Other hydronephrosis (principal); N18.4 Chronic kidney disease, stage 4 (severe); I15.0 Renovascular hypertension

== ENCOUNTER → 2019-10-26 | Outpatient (CLI) | payer MEDICARE, BC ==
[2019-10-26 11:30] LABS: BASO % 0.1 % (0.0-1.0); HEMATOCRIT 35.3 % (36.0-47.0); HEMOGLOBIN 11.7 g/dl (12.0-15.5); LYMPH % 9.3 % (24.0-44.0); MEAN CORPUSCULAR HEMOGLOBIN 31.1 pg (27.0-33.0); MEAN CORPUSCULAR HGB CONC 33.1 g/dl (32.0-36.5); MEAN CORPUSCULAR VOLUME 93.9 fl (80.0-96.0); MONO # 0.2 10^3/uL (0.0-0.8); MONO % 2.1 % (0.0-5.0); NEUTROPHILS # 9.4 10^3/uL (1.5-8.5); NEUTROPHILS % 87.4 % (36.0-66.0); RED BLOOD COUNT 3.76 10^6/uL (4.00-5.40); WHITE BLOOD COUNT 10.8 10^3/uL (4.0-10.0)
[2019-10-26 12:15] LABS: PLATELET COUNT, AUTOMATED 78 10^3/uL (150-450)
[2019-10-26 12:17] LABS: ERYTHROCYTE SEDIMENTATION RATE 38 mm/hr (0-30)
== END ==
LOC: M LAB 09:44
PROVIDERS: ATTEND Orthopaedic Surgery
DX: T84.84XA Pain due to internal orthopedic prosthetic devices, implants and grafts, initial encounter (principal)

== ENCOUNTER → 2019-11-06 | Outpatient (REF) | payer MEDICARE, BC ==
[2019-11-06 13:09] LABS: ALBUMIN 3.7 GM/DL (3.2-5.2); CALCIUM LEVEL 9.2 MG/DL (8.8-10.2); CREATININE FOR GFR 2.19 MG/DL (0.55-1.30); FREE T3 1.3 PG/ML (2.2-4.0); FREE T4 1.67 NG/DL (0.76-1.46); POTASSIUM SERUM 4.5 MEQ/L (3.5-5.1); THYROID STIMULATING HORMONE 5.29 uIU/ML (0.358-3.740)
== END ==
LOC: M SFHCCLAY 12:18
PROVIDERS: ATTEND Family Medicine
DX: E03.9 Hypothyroidism, unspecified (principal); N18.4 Chronic kidney disease, stage 4 (severe)

== ENCOUNTER → 2019-11-13 | Outpatient (CLI) | payer MEDICARE, BC ==
--- NOTE | 2019-11-27 17:28 | REP ---
RIGHT RIB SERIES: 5-VIEWS INCLUDING PA CHEST HISTORY: Right rib pain. COMPARISON: Chest x-ray from 12/12/2018. FINDINGS: PA chest radiograph shows [id number] cardiac enlargement. Cardiothoracic ratio measures 57.1%. Pulmonary vasculature is not increased. No pleural effusion is seen. There is no evidence of pneumothorax. The mediastinum is not widened. The patient is status post thoracolumbar spine fusion with posterior element screws and rods bilaterally. There are degenerative changes in the glenohumeral joints bilaterally. Multiple views of the right rib cage show no evidence of bony destructive lesion or rib fracture. IMPRESSION: Cardiomegaly. Postsurgical changes in the spine. Otherwise, no acute disease. MTDD
== END ==
LOC: M CLY 14:52
PROVIDERS: ATTEND Family Medicine
DX: I51.7 Cardiomegaly (principal); R07.81 Pleurodynia
CPT/HCPCS: 71101; G0463

== ENCOUNTER 2019-11-30 13:31 | Emergency (ER) | payer MEDICARE, BC ==
[~2019-11-30] VITALS: Ht 170.2 cm; Wt 99.5 kg
[~2019-11-30 13:31] MED LIST changes: -AMIO200T3; -DOXY100C37 PO
[2019-11-30] MEDS ORDERED: AMIO200T3 (13:54)
[2019-11-30 14:53] LABS: BASO % 0.3 % (0.0-1.0); EOS # 0.2 10^3/uL (0.0-0.5); EOS % 1.8 % (0.0-3.0); HEMATOCRIT 31.6 % (36.0-47.0); HEMOGLOBIN 10.1 g/dl (12.0-15.5); LYMPH # 0.8 10^3/uL (1.5-5.0); LYMPH % 7.9 % (24.0-44.0); MEAN CORPUSCULAR HEMOGLOBIN 30.6 pg (27.0-33.0); MEAN CORPUSCULAR VOLUME 95.8 fl (80.0-96.0); MONO # 0.7 10^3/uL (0.0-0.8); MONO % 7.1 % (0.0-5.0); NEUTROPHILS # 8.6 10^3/uL (1.5-8.5); NEUTROPHILS % 81.9 % (36.0-66.0); WHITE BLOOD COUNT 10.5 10^3/uL (4.0-10.0)
[2019-11-30 14:59] LABS: PLATELET COUNT, AUTOMATED 67 10^3/uL (150-450)
[2019-11-30 15:01] LABS: BLOOD UREA NITROGEN 33 MG/DL (7-18); CALCIUM LEVEL 8.8 MG/DL (8.8-10.2); CARBON DIOXIDE LEVEL 32 MEQ/L (21-32); CHLORIDE LEVEL 104 MEQ/L (98-107); CK-MB VALUE MASS 1.5 NG/ML (<3.6); CPK CREATINE PHOSPHOKINASE 103 U/L (26-192); CREATININE FOR GFR 1.83 MG/DL (0.55-1.30); GLOMERULAR FILTRATION RATE 28.3 (>39); GLUCOSE, FASTING 198 MG/DL (70-100); MB/CK RELATIVE INDEX 1.46 (< OR =4); NT-PRO BNP 1998 PG/ML (<450); SODIUM LEVEL 141 MEQ/L (136-145); TROPONIN I < 0.02 NG/ML (< 0.10)
--- NOTE | 2019-11-30 16:09 | REPVR ---
PROCEDURE INFORMATION: Exam: XR Chest, 2 Views Exam date and time: 11/30/2019 3:58 PM Age: 79 years old Clinical indication: Shortness of breath; Additional info: SOB TECHNIQUE: Imaging protocol: XR of the chest Views: 2 views. COMPARISON: CR RIBS UNILATERAL WITH PA CHEST 11/13/2019 3:01 PM FINDINGS: Lungs: COPD, interstitial prominence, and newly developed basilar airspace disease. Pleural space: Questionable small pleural effusions. Heart/Mediastinum: Cardiomegaly. Bones/joints: Osteopenia and degenerative change. Surgical hardware in the spine. IMPRESSION: COPD, interstitial prominence, and newly developed basilar airspace disease. Electronically signed by: Chan Rodriguez On 11/30/2019 16:09:24 PM
--- NOTE | 2019-11-30 17:15 | REPVR ---
PROCEDURE INFORMATION: Exam: CT Chest Without Contrast Exam date and time: 11/30/2019 4:32 PM Age: 79 years old Clinical indication: Condition or disease; Lung condition and disease; Pneumonia; Additional info: Basilar pn, ? chf TECHNIQUE: Imaging protocol: Computed tomography of the chest without contrast. 3D rendering (Not supervised by radiologist): MIP and/or 3D reconstructed images were created by the technologist. Radiation optimization: All CT scans at this facility use at least one of these dose optimization techniques: automated exposure control; mA and/or kV adjustment per patient size (includes targeted exams where dose is matched to clinical indication); or iterative reconstruction. COMPARISON: CT CHEST W/O CONTRAST - OUTSIDE PRIOR 07/09/2019 12:00 AM FINDINGS: Lungs: Bilateral ground-glass opacities may be the result of atelectasis or mosaic perfusion. Clinical correlation to exclude multifocal pneumonitis suggested. Linear parenchymal opacities in the right middle lobe and lingular lobes may represent atelectasis and/or fibrotic scarring. 5 mm noncalcified nodule in the superior segment of the left lower lobe stable in comparison to the prior study of 2019. Bibasilar parenchymal opacities likely represent atelectasis. Clinical correlation to exclude pneumonitis suggested. Pleural space: Small bilateral pleural effusions, right greater than left. Heart: There is mild atherosclerotic calcification of the coronary arteries. Small pericardial effusion. Aorta: There is mild atherosclerosis in the thoracic aorta. Lymph nodes: Unremarkable. No enlarged lymph nodes. Bones/joints: Fritz rods demonstrated in thoracolumbar spine. Soft tissues: Unremarkable. IMPRESSION: 1. Bilateral ground-glass opacities may be the result of atelectasis or mosaic perfusion. Clinical correlation to exclude multifocal pneumonitis suggested. 2. Small bilateral pleural effusions, right greater than left. 3. Small pericardial effusion. 4. Bibasilar parenchymal opacities likely represent atelectasis. Clinical correlation to exclude pneumonitis suggested. Electronically signed by: Tariq Vargas On 11/30/2019 17:15:19 PM
[2019-11-30] MEDS ORDERED: DOXY100C37 PO (17:22)
[2019-11-30] MEDS ORDERED: DOXYCYCLINE HYCLATE 100MG TABLET PO ONE (17:30)
[2019-11-30 17:51] VITALS: BP 197/81
--- NOTE | 2019-11-30 20:39 | ECGEPIP ---
[facility] - ED Test Date: 2019-11-30 Pat Name: CINDI LYLES Department: Room: - Gender: Female Roll Dough Divider: NR : 1940 Requested By: Cesar Mccullough Order Number: [id number] Reading MD: Vikki Barrow Measurements Intervals Corinne Rate: 69 P: 85 IA: 194 QRS: -31 QRSD: 104 T: 52 QT: 406 QTc: 436 Interpretive Statements SINUS RHYTHM WITH MARKED SINUS ARRHYTHMIA MARKED LEFT AXIS DEVIATION NSTTW abnormalities baseline artifact may affect interpretation INCREASED RATE 05/31/18 Electronically Signed on 11-30-2019 20:38:50 EDT by Vikki Barrow
--- NOTE | 2019-12-03 07:22 | ED PDOC ---
Post-Departure Follow-Up dr beaver faxed formal report of cta chest for fu Alex Lockhart MD Dec 03, 2019 07:22
== END 2019-11-30 18:33 | disposition home or self-care (01) ==
LOC: EDBD 13:31 → M ED 13:31
DX: J18.9 Pneumonia, unspecified organism (principal); J44.9 Chronic obstructive pulmonary disease, unspecified; J90 Pleural effusion, not elsewhere classified; I31.3 Pericardial effusion (noninflammatory); J98.4 Other disorders of lung; I11.0 Hypertensive heart disease with heart failure; I25.10 Atherosclerotic heart disease of native coronary artery without angina pectoris; E11.22 Type 2 diabetes mellitus with diabetic chronic kidney disease; G47.33 Obstructive sleep apnea (adult) (pediatric); N18.4 Chronic kidney disease, stage 4 (severe); F17.200 Nicotine dependence, unspecified, uncomplicated; Z88.0 Allergy status to penicillin; Z88.6 Allergy status to analgesic agent; Z88.8 Allergy status to other drugs, medicaments and biological substances; Z79.899 Other long term (current) drug therapy

== ENCOUNTER → 2019-12-26 | Outpatient (REF) | payer MEDICARE, BC ==
[~2019-12-26] MED LIST changes: +AMIO200T3; +DOXY100C37 PO
[2019-12-26 16:44] LABS: HEMATOCRIT 33.7 % (36.0-47.0); HEMOGLOBIN 10.3 g/dl (12.0-15.5); MEAN CORPUSCULAR HEMOGLOBIN 30.5 pg (27.0-33.0); MEAN CORPUSCULAR HGB CONC 30.6 g/dl (32.0-36.5); MEAN CORPUSCULAR VOLUME 99.7 fl (80.0-96.0); PLATELET COUNT, AUTOMATED 135 10^3/uL (150-450); RED BLOOD COUNT 3.38 10^6/uL (4.00-5.40); WHITE BLOOD COUNT 6.5 10^3/uL (4.0-10.0)
[2019-12-26 17:30] LABS: CREATININE FOR GFR 2.03 MG/DL (0.55-1.30); FREE T3 2.5 PG/ML (2.2-4.0); FREE T4 1.38 NG/DL (0.76-1.46); GLOMERULAR FILTRATION RATE 25.2 (>39); POTASSIUM SERUM 4.1 MEQ/L (3.5-5.1); THYROID STIMULATING HORMONE 0.862 uIU/ML (0.358-3.740)
== END ==
LOC: M SFHCCLAY 09:22
PROVIDERS: ATTEND Family Medicine
DX: I50.33 Acute on chronic diastolic (congestive) heart failure (principal); N18.4 Chronic kidney disease, stage 4 (severe); E03.9 Hypothyroidism, unspecified

== ENCOUNTER → 2020-01-15 | Outpatient (REF) | payer MEDICARE, BC ==
[2020-01-15 16:10] LABS: HEMATOCRIT 35.5 % (36.0-47.0); HEMOGLOBIN 10.8 g/dl (12.0-15.5); MEAN CORPUSCULAR HGB CONC 30.4 g/dl (32.0-36.5); MEAN CORPUSCULAR VOLUME 95.2 fl (80.0-96.0); PLATELET COUNT, AUTOMATED 170 10^3/uL (150-450); RED BLOOD COUNT 3.73 10^6/uL (4.00-5.40); WHITE BLOOD COUNT 6.6 10^3/uL (4.0-10.0)
[2020-01-15 16:36] LABS: HEMOGLOBIN A1c 5.7 %
[2020-01-15 16:39] LABS: ALBUMIN 3.5 GM/DL (3.2-5.2); ALT/SGPT 27 U/L (12-78); BILIRUBIN,TOTAL 0.6 MG/DL (0.2-1.0); BLOOD UREA NITROGEN 27 MG/DL (7-18); CALCIUM LEVEL 9.4 MG/DL (8.8-10.2); CARBON DIOXIDE LEVEL 33 MEQ/L (21-32); CHLORIDE LEVEL 103 MEQ/L (98-107); CREATININE FOR GFR 1.88 MG/DL (0.55-1.30); GLOMERULAR FILTRATION RATE 27.4 (>32); GLUCOSE, FASTING 141 MG/DL (70-100); IRON (FE) 50 UG/DL (50-170); POTASSIUM SERUM 3.8 MEQ/L (3.5-5.1); SODIUM LEVEL 142 MEQ/L (136-145); TOTAL PROTEIN 6.5 GM/DL (6.4-8.2)
[2020-01-15 16:46] LABS: VITAMIN B12 LEVEL 1510 PG/ML (247-911)
[2020-01-15 16:47] LABS: FOLATE > 24.0 NG/ML (>5.4)
== END ==
LOC: M SFHCCLAY 09:35
PROVIDERS: ATTEND Family Medicine
DX: I50.33 Acute on chronic diastolic (congestive) heart failure (principal); E11.9 Type 2 diabetes mellitus without complications

== ENCOUNTER → 2020-02-06 | Outpatient (CLI) | payer MEDICARE, BC ==
--- NOTE | 2020-02-06 16:34 | REP ---
INDICATION: SHORTNESS OF BREATH. COMPARISON: PA and lateral chest dated 02/11/2019 and PA and lateral chest dated 11/30/2019. TECHNIQUE: PA and lateral chest. FINDINGS: There is chronic mild interstitial coarsening, unchanged from both prior studies. This may represent chronic lung disease. There are no focal infiltrates or pleural effusions. Cardiac size is enlarged. This is unchanged. The karen, mediastinum, and skeletal structures are unremarkable. There is surgical fusion of the thoracolumbar spine with pedicle screws and stabilization rods for this is unchanged. IMPRESSION: Chronic findings as described. No new or acute cardiopulmonary findings. <Electronically signed by Jose Aguilar > 02/06/20 [id number]
== END ==
LOC: M CLY 13:17
PROVIDERS: ATTEND Internal Medicine Rheumatology
DX: R06.02 Shortness of breath (principal); M43.25 Fusion of spine, thoracolumbar region

== ENCOUNTER → 2020-06-30 | Outpatient (REF) | payer MEDICARE, BC | LOC: M LABDRAWC 11:28 | PROVIDERS: ATTEND Internal Medicine Pulmonary Disease | DX: I27.20 Pulmonary hypertension, unspecified (principal) ==

== ENCOUNTER → 2020-07-07 | Outpatient (REF) | payer MEDICARE, BC ==
[2020-07-07 16:46] LABS: HEMOGLOBIN A1c 6.7 %
[2020-07-07 16:53] LABS: FREE T3 3.5 PG/ML (2.2-4.0); FREE T4 1.06 NG/DL (0.76-1.46); THYROID STIMULATING HORMONE 0.193 uIU/ML (0.358-3.740)
== END ==
LOC: M SFHCCLAY 14:03
PROVIDERS: ATTEND Family Medicine
DX: R50.9 Fever, unspecified (principal); E03.9 Hypothyroidism, unspecified; E11.21 Type 2 diabetes mellitus with diabetic nephropathy

== ENCOUNTER → 2020-08-14 | Outpatient (REF) | payer MEDICARE, BC ==
[~2020-08-14] MED LIST changes: -DOXY100C37 PO; +DOXY1CAP62 PO
[2020-08-14 16:27] LABS: CALCIUM LEVEL 9.7 MG/DL (8.8-10.2); CREATININE FOR GFR 2.25 MG/DL (0.55-1.30); GLOMERULAR FILTRATION RATE 22.3 (>32); POTASSIUM SERUM 3.7 MEQ/L (3.5-5.1)
== END ==
LOC: M LABDRAWC 15:54
PROVIDERS: ATTEND Internal Medicine Pulmonary Disease
DX: I27.22 Pulmonary hypertension due to left heart disease (principal); E11.21 Type 2 diabetes mellitus with diabetic nephropathy

== ENCOUNTER → 2020-08-19 | Outpatient (REF) | payer MEDICARE, BC ==
[2020-08-20 18:57] LABS: PERCENT SATURATION 11.6 % (13.2-45.0)
== END ==
LOC: M LAB REF 17:24
PROVIDERS: ATTEND Internal Medicine Nephrology
DX: D50.9 Iron deficiency anemia, unspecified (principal)

== ENCOUNTER → 2020-09-09 | Outpatient (CLI) | payer MEDICARE, BC ==
--- NOTE | 2020-09-09 16:44 | REP ---
INDICATION: M79.641, M79.642, BILATERAL HAND PAIN. COMPARISON: None go technique two views each hand FINDINGS: Right hand: There is advanced intra digital joint space narrowing particularly affecting the interphalangeal joint of the 1st digit and distal interphalangeal joint of the 3rd digit where marginal osteophytosis and joint space irregularity is the greatest. Subchondral sclerosis is also identified involving those joints. There is medial subluxation of the D IP joints of digits 2 and 3. There is no acute fracture Left hand: Asymmetric intra digital joint space narrowing and marginal osteophytosis is seen involving all interphalangeal joint spaces but particularly the interphalangeal joint of the 1st digit and D IP joint of the 3rd digit. Marginal osteophyte formation is seen involving the head of the 2nd metacarpal. There is no acute fracture. IMPRESSION: Bilateral degenerative changes. <Electronically signed by Moris Vilchis > 09/09/20 1640
== END ==
LOC: M CLY 14:43
PROVIDERS: ATTEND Nurse Practitioner
DX: M19.041 Primary osteoarthritis, right hand (principal); M19.042 Primary osteoarthritis, left hand; M79.641 Pain in right hand; M79.642 Pain in left hand
CPT/HCPCS: 73120; G0463

== ENCOUNTER → 2020-10-16 | Outpatient (CLI) | payer MEDICARE, BC ==
[2020-10-16 11:43] LABS: BASO # 0.1 10^3/uL (0.0-0.2); BASO % 0.8 % (0.0-1.0); EOS # 1.6 10^3/uL (0.0-0.5); HEMATOCRIT 34.5 % (36.0-47.0); LYMPH # 1.5 10^3/uL (1.5-5.0); LYMPH % 20.4 % (24.0-44.0); MEAN CORPUSCULAR HEMOGLOBIN 29.4 pg (27.0-33.0); MEAN CORPUSCULAR HGB CONC 31.9 g/dl (32.0-36.5); MEAN CORPUSCULAR VOLUME 92.2 fl (80.0-96.0); MONO # 0.5 10^3/uL (0.0-0.8); MONO % 6.6 % (2.0-8.0); NEUTROPHILS # 3.6 10^3/uL (1.5-8.5); NEUTROPHILS % 49.4 % (36.0-66.0); PLATELET COUNT, AUTOMATED 179 10^3/uL (150-450); RED BLOOD COUNT 3.74 10^6/uL (4.00-5.40); WHITE BLOOD COUNT 7.2 10^3/uL (4.0-10.0)
[2020-10-16 12:07] LABS: ALBUMIN 3.6 GM/DL (3.2-5.2); BILIRUBIN,TOTAL 0.6 MG/DL (0.2-1.0); CREATININE FOR GFR 2.03 MG/DL (0.55-1.30); EOS % 22.5 % (0.0-3.0); GLOMERULAR FILTRATION RATE 25.1 (>32); POTASSIUM SERUM 3.8 MEQ/L (3.5-5.1); THYROID STIMULATING HORMONE 0.789 uIU/ML (0.358-3.740); TOTAL PROTEIN 6.7 GM/DL (6.4-8.2)
== END ==
LOC: M LAB 10:13
PROVIDERS: ATTEND Internal Medicine Cardiovascular Disease
DX: I50.32 Chronic diastolic (congestive) heart failure (principal)

== ENCOUNTER → 2020-10-28 | Outpatient (REF) | payer MEDICARE, BC | LOC: M LAB REF 16:55 | PROVIDERS: ATTEND Internal Medicine Nephrology | DX: M1A.30X0 Chronic gout due to renal impairment, unspecified site, without tophus (tophi) (principal); N25.81 Secondary hyperparathyroidism of renal origin; E83.42 Hypomagnesemia | CPT/HCPCS: 83735; 93005; G0463 ==